=== PATIENT | female | born 1955 | race Caucasian/White ===

== ENCOUNTER 2018-09-03 15:36 | Inpatient (IN) | payer MEDICARE, SELFPAY ==
[2018-09-03] VITALS (8 sets, daily range): BP systolic 101–159; BP diastolic 63–93; PULSE 71–95; RESP 17–21; TEMP 36.6–36.7; O2SAT 22–97; BMI 42.6; BMI 41.9
--- NOTE | 2018-09-03 15:48 | ED.VIS.GEN ---
History of Present Illness Chief Complaint: Abscess Informant: Patient Onset: Weeks - multiple weeks or 1-2 mos Context: Gradual Onset Timing: Continuous Quality: sore Location: right breast Current Severity: Moderate Maximum Severity: Moderate Worsened by: palpation Relieved by: nothing Narrative: Patient with recurring cutaneous abscesses in both of her axilla and on both breasts, presenting for another one. It is on her right breast. There is been no discharge from it, although a nearby one drained blood a week ago and is not hurting as bad as this 1 now. She comes to the ER after having this for multiple months saying that she does not want me to drain it but wants me to page Dr. Ott to come and to do it. Also, she has been having worsening COPD symptoms for the last couple months with a cough that has been productive, and in the past 1-2 weeks it has been yellow sputum without blood, she has intermittent chest discomfort, it is left-sided last for seconds most of the time at nighttime. She also gets chest tightness most of the time when she is dyspneic with exertion. She has home oxygen and was 86% on her home oxygen in triage today, just after exerting herself to the door. She is not having any angina at rest. No known history of heart disease, she has had a negative stress test in the past but cannot remember when it was. Prior similar symptoms: Yes - Past Medical History (1) COPD (chronic obstructive pulmonary disease) Status: Chronic (2) Diabetes mellitus type 2 in obese Status: Chronic (3) HTN (hypertension) Status: Chronic (4) Depression Status: Chronic (5) GERD (gastroesophageal reflux disease) Status: Chronic (6) Esophageal stricture Status: Chronic Past Medical History - Allergies and Home Meds Allergies/Adverse Reactions: Allergies Sulfa (Sulfonamide Antibiotics) Allergy (Mild, Verified 09/03/18 15:38) Hives ciprofloxacin Adverse Reaction (Mild, Verified 09/03/18 15:38) Nausea/Vom/Diarrhea Primary Care Physician: Julio Reyes MD [Primary Care Provider] - Review of Systems General: Denies: Chills, Fever Eyes: Denies: Visual changes - bilaterally, Diplopia ENT: Denies: Rhinorrhea, Sore throat Cardiovascular: Reports: Chest pain - intermittent. Denies: Palpitations Respiratory: Reports: Dyspnea - chronic, Cough, Sputum, Dyspnea on exertion - chronic. Denies: Orthopnea Gastrointestinal: Denies: Abdominal pain, Vomiting, Diarrhea, Melena Genitourinary: Reports: Frequency - When my blood sugar is high. Denies: Dysuria, Hematuria Musculoskeletal: Reports: Back pain - chronic. Denies: Myalgias, Neck pain, Swelling Skin: Reports: Abscess - R breast. Denies: Rash Neurological: Denies: Headache, Weakness, Parasthesia, Numbness Psych: Denies: Suicidal thoughts, Suicidal ideations Endocrine: Denies: Polyuria, Polydipsia, Heat intolerance, Cold intolerance Allergy: Denies: Swelling of the mouth, Swelling of the tongue Physical Exam Inital Vital Signs reviewed: Yes General: Well nourished, Well developed, Obese, - - nad Head: Normocephalic, Atraumatic Eyes: Perrl, EOMI ENT: Moist mucous membranes, No rhinorrhea Neck: Supple, Nontender, No lymphadenopathy Cardiovascular: Regular rate, Regular rhythm, No murmurs Respiratory: No distress, CTA bilaterally, Diminished - throughout Abdomen: Soft, Nondistended, Normal bowel sounds, Tender - epigastric > RUQ. Negative for: Guarding, Rebound tenderness Extremities: Nontender, No edema Skin: Normal color, No Trauma, - - Multiple scars from old abscesses on both breasts and axillae w/ one acute tender, indurated abscess right medial breast w/ surrounding cellulitis. Not pointing, capsule/abscess feels like it may not be at surface of skin. Neurological: Alert, Oriented x3, Cranial nerves II-XII grossly intact, Normal Strength, Normal Sensation Diagnostic/Tx/Re-eval Impressions Chest X-Ray 09/03/18 16:15 IMPRESSION: Findings suggestive of COPD. Generalized osteopenia. No acute cardiopulmonary disease process is seen. Electronically Signed: Nicholas Melo MD at 17:39 EST , Service support , 09/03/18 16:15 Chest PA and Lateral [RAD] Stat Laboratory Results 09/03/18 09/03/18 16:30 16:30 WBC 8.7 RBC 5.12 Hgb 14.4 Hct 44.9 MCV 87.7 MCH 28.1 MCHC 32.1 RDW 14.2 RDW Differential 46.1 H Plt Count 116 L MPV 11.5 Immature Gran % (Auto) 0.300 Neut % (Auto) 63.9 Lymph % (Auto) 22.8 [place] % (Auto) 11.3 H Eos % (Auto) 1.6 Baso % (Auto) 0.1 Absolute Neuts (auto) 5.5 Absolute Lymphs (auto) 1.97 Total Counted Not Reportable Sodium 136 Potassium 3.6 Chloride 98 Carbon Dioxide 31.0 Anion Gap 7 BUN 6 L Creatinine 0.60 Estim Creat Clear Calc 68.04 Est GFR (MDRD) Af Amer 128 Est GFR (MDRD) Non-Af 106 BUN/Creatinine Ratio 9.9 L Glucose 176 H Calcium 9.1 Troponin I < 0.015 - Medical Decision Making Patient was given a couple nebulizer treatments which helped, at rest her oxygen levels remained in the low 90s. She was very dyspneic with walking to and from the bathroom, pulse ox went down to 89 but recovered relatively quickly. Her workup shows no pneumonia or evidence of myocardial infarction or active cardiac ischemia. Her breast abscess is concerning. It does not feel extremely superficial, but is at least 4 cm in diameter total by palpation, and should be drained. I discussed with Dr. ott, who has seen the patient in the past and advises that he would evaluate her as an inpatient if admitted to medicine, as there is a chance this may need drained in the operating room. Patient declines an offer for a needle aspiration by myself at this time. She was given a dose of IV vancomycin given her allergy to sulfa medications and likelihood of harboring MRSA. ED Disposition - Plan for ED Patient: Disposition: Acute Care Hospital [facility] Chief Complaint: Abscess Diagnosis: COPD exacerbation, Abscess of right breast, Hidradenitis suppurativa, Intermittent left-sided chest pain Referrals: Julio Reyes MD [Primary Care Provider] -
--- NOTE | 2018-09-03 15:55 | ED.DCSUM_ITS ---
History of Present Illness Chief Complaint: Abscess Informant: Patient Onset: Weeks - multiple weeks or 1-2 mos Context: Gradual Onset Timing: Continuous Quality: sore Location: right breast Current Severity: Moderate Maximum Severity: Moderate Worsened by: palpation Relieved by: nothing Narrative: Patient with recurring cutaneous abscesses in both of her axilla and on both breasts, presenting for another one. It is on her right breast. There is been no discharge from it, although a nearby one drained blood a week ago and is not hurting as bad as this 1 now. She comes to the ER after having this for multiple months saying that she does not want me to drain it but wants me to page Dr. Ott to come and to do it. Also, she has been having worsening COPD symptoms for the last couple months with a cough that has been productive, and in the past 1-2 weeks it has been yellow sputum without blood, she has intermittent chest discomfort, it is left- sided last for seconds most of the time at nighttime. She also gets chest tightness most of the time when she is dyspneic with exertion. She has home oxygen and was 86% on her home oxygen in triage today, just after exerting herself to the door. She is not having any angina at rest. No known history of heart disease, she has had a negative stress test in the past but cannot remember when it was. Prior similar symptoms: Yes - Past Medical History (1) COPD (chronic obstructive pulmonary disease) Status: Chronic (2) Diabetes mellitus type 2 in obese Status: Chronic (3) HTN (hypertension) Status: Chronic (4) Depression Status: Chronic (5) GERD (gastroesophageal reflux disease) Status: Chronic (6) Esophageal stricture Status: Chronic Past Medical History - Allergies and Home Meds Allergies/Adverse Reactions: Allergies Sulfa (Sulfonamide Antibiotics) Allergy (Mild, Verified 09/03/18 15:38) Hives ciprofloxacin Adverse Reaction (Mild, Verified 09/03/18 15:38) Nausea/Vom/Diarrhea Primary Care Physician: Julio Reyes MD [Primary Care Provider] - Review of Systems General: Denies: Chills, Fever Eyes: Denies: Visual changes - bilaterally, Diplopia ENT: Denies: Rhinorrhea, Sore throat Cardiovascular: Reports: Chest pain - intermittent. Denies: Palpitations Respiratory: Reports: Dyspnea - chronic, Cough, Sputum, Dyspnea on exertion - chronic. Denies: Orthopnea Gastrointestinal: Denies: Abdominal pain, Vomiting, Diarrhea, Melena Genitourinary: Reports: Frequency - When my blood sugar is high. Denies: Dysuria, Hematuria Musculoskeletal: Reports: Back pain - chronic. Denies: Myalgias, Neck pain, Swelling Skin: Reports: Abscess - R breast. Denies: Rash Neurological: Denies: Headache, Weakness, Parasthesia, Numbness Psych: Denies: Suicidal thoughts, Suicidal ideations Endocrine: Denies: Polyuria, Polydipsia, Heat intolerance, Cold intolerance Allergy: Denies: Swelling of the mouth, Swelling of the tongue Physical Exam Inital Vital Signs reviewed: Yes General: Well nourished, Well developed, Obese, - - nad Head: Normocephalic, Atraumatic Eyes: Perrl, EOMI ENT: Moist mucous membranes, No rhinorrhea Neck: Supple, Nontender, No lymphadenopathy Cardiovascular: Regular rate, Regular rhythm, No murmurs Respiratory: No distress, CTA bilaterally, Diminished - throughout Abdomen: Soft, Nondistended, Normal bowel sounds, Tender - epigastric > RUQ. Negative for: Guarding, Rebound tenderness Extremities: Nontender, No edema Skin: Normal color, No Trauma, - - Multiple scars from old abscesses on both breasts and axillae w/ one acute tender, indurated abscess right medial breast w/ surrounding cellulitis. Not pointing, capsule/abscess feels like it may not be at surface of skin. Neurological: Alert, Oriented x3, Cranial nerves II-XII grossly intact, Normal Strength, Normal Sensation Diagnostic/Tx/Re-eval Impressions Chest X-Ray 09/03/18 16:15 IMPRESSION: Findings suggestive of COPD. Generalized osteopenia. No acute cardiopulmonary disease process is seen. Electronically Signed: Nicholas Melo MD at 17:39 EST , Service support , 09/03/18 16:15 Chest PA and Lateral [RAD] Stat Laboratory Results 09/03/18 09/03/18 16:30 16:30 WBC 8.7 RBC 5.12 Hgb 14.4 Hct 44.9 MCV 87.7 MCH 28.1 MCHC 32.1 RDW 14.2 RDW Differential 46.1 H Plt Count 116 L MPV 11.5 Immature Gran % (Auto) 0.300 Neut % (Auto) 63.9 Lymph % (Auto) 22.8 [place] % (Auto) 11.3 H Eos % (Auto) 1.6 Baso % (Auto) 0.1 Absolute Neuts (auto) 5.5 Absolute Lymphs (auto) 1.97 Total Counted Not Reportable Sodium 136 Potassium 3.6 Chloride 98 Carbon Dioxide 31.0 Anion Gap 7 BUN 6 L Creatinine 0.60 Estim Creat Clear Calc 68.04 Est GFR (MDRD) Af Amer 128 Est GFR (MDRD) Non-Af 106 BUN/Creatinine Ratio 9.9 L Glucose 176 H Calcium 9.1 Troponin I < 0.015 - Medical Decision Making Patient was given a couple nebulizer treatments which helped, at rest her oxygen levels remained in the low 90s. She was very dyspneic with walking to and from the bathroom, pulse ox went down to 89 but recovered relatively quickly. Her workup shows no pneumonia or evidence of myocardial infarction or active cardiac ischemia. Her breast abscess is concerning. It does not feel extremely superficial, but is at least 4 cm in diameter total by palpation, and should be drained. I discussed with Dr. ott, who has seen the patient in the past and advises that he would evaluate her as an inpatient if admitted to medicine, as there is a chance this may need drained in the operating room. Patient declines an offer for a needle aspiration by myself at this time. She was given a dose of IV vancomycin given her allergy to sulfa medications and likelihood of harboring MRSA. ED Disposition - Plan for ED Patient: Disposition: Acute Care Hospital [facility] Chief Complaint: Abscess Diagnosis: COPD exacerbation, Abscess of right breast, Hidradenitis suppurativa, Interm ittent left-sided chest pain Referrals: Julio Reyes MD [Primary Care Provider] -
--- NOTE | 2018-09-03 16:15 | EKG12_ITS ---
Test Reason : ABSESS Blood Pressure : / mmHG Vent. Rate : 071 BPM Atrial Rate : 071 BPM P-R Int : 174 ms QRS Dur : 088 ms QT Int : 444 ms P-R-T Axes : 069 -53 053 degrees QTc Int : 482 ms Sinus rhythm with Premature atrial complexes Left anterior fascicular block Nonspecific ST abnormality Abnormal ECG No previous ECGs available Confirmed by DONNELL FIGUEROA, ROSALIND ([id number]), publication editor POOJA FANG ([id number]) on 09/15/2018 2:31:37 PM Referred By: Shara Razo Confirmed By:ROSALIND JACOBO MD
--- NOTE | 2018-09-03 16:15 | RAD_ITS ---
STUDY: X-RAY CHEST REASON FOR EXAM: Female, 62 years old. COPD, shortness of breath TECHNIQUE: PA and lateral views of the chest. COMPARISON: None. FINDINGS: athletic monitor leads are present. The lungs are clear and expanded. There is hemidiaphragmatic flattening with increased retrosternal airspace. Normal size heart. Normal mediastinum and alan. Normal visualized pulmonary arteries. Normal visualized aortic arch and descending thoracic aorta. There is demineralization of the osseous structures. Normal visualized ribs, clavicles, and shoulders. There is no demonstrated abnormality of the visualized soft tissue structures of the upper abdomen. RAD/Chest PA and Lateral IMPRESSION: Findings suggestive of COPD. Generalized osteopenia. No acute cardiopulmonary disease process is seen. Electronically Signed: Nicholas Melo MD at 17:39 EST , Service support ,
--- NOTE | 2018-09-03 16:36 | NURSING ---
NO OLD EKGS
[2018-09-03] MEDS: MethylPREDNISolone 125 MG/2 ML Vial IV (16:37)
[2018-09-03] MEDS: Ipratropium/Albuterol Sulfate 3 ML AMPUL.NEB INHALATION ×2 (16:37→20:18)
[2018-09-03] MEDS: Albuterol 2.5 MG/3 ML VIAL.NEB. INHALATION (16:44)
[2018-09-03 17:14] LABS: Absolute Lymphocyte Count 1.97 X10^3/ul (0.83-4.51); Absolute Neutrophil Count 5.5 X10^3/uL (2.0-7.7); Basophil# 0.01 X10^3/uL; Basophil% 0.1 % (0-1); Eosinophil# 0.14 X10^3/uL; Eosinophils% 1.6 % (0-5); Hematocrit 44.9 % (37-47); Hemoglobin 14.4 g/dl (12.0-15.0); Lymphocyte # 1.97 X10^3/ul (4.0); Lymphocyte % 22.8 % (19-41); Mean Corp Hgb Conc 32.1 g/gl (32-36); Mean Corpuscular Hgb 28.1 pg (27.0-32.0); Mean Corpuscular Volume 87.7 fL (81-99); Mean Platelet Vol. 11.5 fl (6.2-12.0); Monocyte# 0.98 X10^3/uL; Monocyte% 11.3 % (0-10); Neutrophil # 5.52 X10^3/uL (2.7-7.7); Neutrophil % 63.9 % (47-70); Platelet Count 116 K/mm3 (150-450); RBC Distribution Width CV 14.2 % (11.6-14.6); RBC Distribution Width SD 46.1 fl (35.1-43.9); Red Blood Count 5.12 M/mm3 (4.2-5.4); White Blood Count 8.7 K/mm3 (4.4-11.0)
[2018-09-03 17:15] LABS: POSITIVE COUNT NO; POSITIVE DIFFERENTIAL NO; POSITIVE MORPHOLOGY NO
[2018-09-03 17:16] LABS: Anion Gap 7 (5-15); BUN 6 mg/dL (7-18); BUN/Creat Ratio 9.9 RATIO (10-20); Calcium,Total 9.1 mg/dL (8.5-10.1); Chloride 98 mmol/L (98-107); EST Glomerular Filtration Rate 106 mL/min (>60); Est Glom Filt Rate - Afr Amer 128 mL/min (>60); Estimated Creatinine Clearance 68.04 ml/min; Glucose 176 mg/dL (74-106); Potassium 3.6 mmol/L (3.5-5.1); Sodium Level 136 mmol/L (136-145)
[2018-09-03] MEDS: Vancomycin IV 1,000 MG/200 ML BAG 250 MG IV (17:42)
--- NOTE | 2018-09-03 19:02 | HP.PCM_ITS ---
Problem List (1) Abscess of right breast Status: Acute (2) COPD exacerbation Status: Acute (3) Chest pain Status: Acute (4) Diabetes mellitus type 2 in obese Status: Chronic (5) HTN (hypertension) Status: Chronic (6) Depression Status: Chronic (7) GERD (gastroesophageal reflux disease) Status: Chronic (8) Esophageal stricture Status: Chronic (9) Hidradenitis suppurativa Status: Acute History of Present Illness Date of Admission: 09/03/18 Chief Complaint: right breast abscess The patient is a 62 year old F with a PmHx of hydradenitis suppurativa with long hx of abscesses and drainage, COPD, heavy smoking hx quit 3 years ago but smoked since childhood 2 packs per day, IDDM2, depression, esophageal stricture, GERD, GERONIMO compliant with CPAP qhs, chronic hypoxic respiratory failure on 3lpm O2 chronically, who presents to the ER c/o right breast abscess that has been progressively worsening for several weeks. Typically she sees her PCP for these, and last had one drained by him last month. This right breast abscess has been present and getting larger, redder, and more painful for months. She had another near it that recently burst and drained red blood no purulence. She was referred to Dr. Ott but could not get in for several months so she came to the ER. On walking into the ER she was found hypoxic on her 3lpm O2 at 86%. She states her breathing is always poor, but does admit it is worse lately. She sleeps with her head elevated as she cannot lay flat. She also has had chest heaviness at night when laying in bed with radiation to the back. She has no LE edema. No wheezing. She has a chronic productive cough. [] Past Medical History Past Medical History (Chronic Problems): Chronic Problems (Last Reviewed 08/26/18 @ 07:15 by Mohini Nielson) COPD (chronic obstructive pulmonary disease) (Chronic) Diabetes mellitus type 2 in obese (Chronic) HTN (hypertension) (Chronic) Depression (Chronic) GERD (gastroesophageal reflux disease) (Chronic) Esophageal stricture (Chronic) Medical History: Medical History (Last Reviewed 08/26/18 @ 07:15 by Mohini Nielson) Chronic obstructive pulmonary disease with acute exacerbation J44.1 Furuncle of axilla L02.429 Furuncle of groin L02.224 Hypoxemia R09.02 Rib fracture S22.39XA Benign essential HTN I10 Mixed hyperlipidemia E78.2 Nonalcoholic fatty liver disease K76.0 Right sided sciatica M54.31 Type 2 diabetes mellitus E11.9 Allergies Sulfa (Sulfonamide Antibiotics) Allergy (Mild, Verified 09/03/18 15:38) Hives ciprofloxacin Adverse Reaction (Mild, Verified 09/03/18 15:38) Nausea/Vom/Diarrhea Home Medications: Ambulatory Orders Medication Instructions Recorded fluoxetine 20 mg capsule 60 mg PO DAILY cap 08/22/18 fluticasone 100 mcg-vilanterol 25 1 inh INHALATION DAILY 08/22/18 mcg/dose powder for inhalation furosemide 20 mg tablet 20 mg PO DAILY PRN 08/22/18 glimepiride 2 mg tablet 2 mg PO QAM 08/22/18 insulin U- 100 regular human 100 See Protocol SC TIDCM 08/22/18 unit/mL injection solution ipratropium bromide 0.02 % 2.5 ml INHALATION Q6H 08/22/18 solution for inhalation lisinopril 20 1 tab PO DAILY 08/22/18 mg-hydrochlorothiazide 25 mg tablet montelukast 10 mg tablet 10 mg PO QPM 08/22/18 omeprazole 40 mg capsule,delayed 40 mg PO DAILY 08/22/18 release pravastatin 40 mg tablet 40 mg PO DAILY 08/22/18 trazodone 150 mg tablet 150 mg PO DAILY 08/22/18 Albuterol Aerosols [Ventolin 2.5 mg INHALATION Q4H PRN PRN 09/03/18 Aerosols] Albuterol Inhaler [Ventolin Hfa 1 - 2 puff INHALATION Q4H PRN PRN 09/03/18 (SP)] Hydroxyzine HCl 25 mg PO PRN PRN 09/03/18 Insulin NPH Human Isophane 40 unit SQ DINNER 09/03/18 [Novolin N] Insulin NPH Human Isophane 60 unit SQ BREAKFAST 09/03/18 [Novolin N] Metoprolol Succinate [Toprol Xl] 50 mg PO DAILY 09/03/18 Surgical History: appendectomy, hysterectomy, - - , tubal ligation Psychiatric History: Depression [employer] History: No pertinent [employer] history Lives: Spouse/ Significant Other Smoking Status: Never smoker Alcohol: None Drugs: None - *Family History Maternal History Items: No pertinent history Paternal History Items: - - alcoholism Review of Systems Constitutional: Denies: Chills, Fever, Weight Change HEENT: Denies: Head Aches, Sinus Congestion, Sinus Drainage Cardiovascular: Reports: Chest Pain. Denies: Palpitations Respiratory: Denies: Cough, Shortness of breath at rest, Sputum production Gastrointestinal: Denies: Abdominal Pain, Nausea, Vomiting Genitourinary: Denies: Dysuria Musculoskeletal: Denies: Joint Pain, Joint Tenderness Skin: Denies: Rash, Wounds Neurological: Denies: Numbness, Tingling, Focal weakness Psychiatric: Denies: Anxiety, Depression, Homicidal Ideations, Suicidal Ideations Hematologic/ Lymphatic: Denies: Easy Bruising, Easy Bleeding VTE Information - Inpt Only VTE Present on Admission: No VTE Mechan Device Prophylaxis: None VTE Pharm Prophylaxis ordered?: Yes Patient Problems: Active and Suspected Problems (Last Reviewed 08/26/18 @ 07:15 by Mohini Nielson) COPD exacerbation (Acute) Abscess of right breast (Acute) Hidradenitis suppurativa (Acute) Intermittent left-sided chest pain (Acute) Chest pain (Acute) - Physical Exam General: Alert, Oriented x3, Cooperative HEENT: Atraumatic, PERRLA, EOMI, Normocephalic Neck: Supple, No JVD, Negative Carotid Bruits Lungs: Diminished Cardiovascular: Regular rate, No murmurs Abdomen: Bowel Sounds Present, Soft, Non Tender Extremities: No edema, Capillary Refill Less than 3 Seconds Skin: No rashes, No breakdown Musculoskeletal: No Tenderness to Palpation of Joints or Extremities Neurological: Cranial nerves II-XII grossly intact Psych/Mental Status: Normal Affect, Appropriate, Alert and oriented to time, place, person, mood and affect Vital Signs Temp Pulse Resp BP Pulse Ox 98.1 F 77 21 H 101/63 93 09/03/18 15:38 09/03/18 18:54 09/03/18 18:54 09/03/18 18:54 09/03/18 18:54 Oxygen Delivery Method Room Air Weight: 218 lb 4.122 oz Body Mass Index (BMI) 42.6 Laboratory Tests Past 24 Hrs 09/03/18 09/03/18 16:30 16:30 WBC 8.7 RBC 5.12 Hgb 14.4 Hct 44.9 MCV 87.7 MCH 28.1 MCHC 32.1 RDW 14.2 RDW Differential 46.1 H Plt Count 116 L MPV 11.5 Immature Gran % (Auto) 0.300 Neut % (Auto) 63.9 Lymph % (Auto) 22.8 [place] % (Auto) 11.3 H Eos % (Auto) 1.6 Baso % (Auto) 0.1 Absolute Neuts (auto) 5.5 Absolute Lymphs (auto) 1.97 Total Counted Not Reportable Sodium 136 Potassium 3.6 Chloride 98 Carbon Dioxide 31.0 Anion Gap 7 BUN 6 L Creatinine 0.60 Estim Creat Clear Calc 68.04 Est GFR (MDRD) Af Amer 128 Est GFR (MDRD) Non-Af 106 BUN/Creatinine Ratio 9.9 L Glucose 176 H Calcium 9.1 Troponin I < 0.015 Assessment/Plan All Active Problems (Last Reviewed 08/26/18 @ 07:15 by Mohini Nielson) COPD exacerbation (Acute) Abscess of right breast (Acute) Hidradenitis suppurativa (Acute) Intermittent left-sided chest pain (Acute) Chest pain (Acute) 1. Right breast abcess - suspect staphylococcal - hx hydradenitis suppuritiva, diabetes (IDDM), morbid obesity - Consult to Dr. Ott. Continue vanc. Will defer culture until it can opened up. No fever or leukocytosis. NPO after midnight in case she needs to go to the OR. 2. Acute on chronic hypoxic respiratory failure 2/2 acute mild COPD exacerbation - continue solumedrol, aerosols, optimize for OR. Baseline is 3lpm. 86% after ambulating into the OR. Diminished lungs. negative CXR for acute process - COPD shown. Incentive spirometer. 3. Chest pain - trop neg, ekg with nonspecific t wave abnormalities, PAC's. Cycle enzymes, repeat EKG, get echo, maintain on tele. Pain is heaviness that occurs at night, pt cant lay flat - suspect heart failure/pulmonary htn. Multiple risk factors for CAD. 4. GERONIMO - continue CPAP qhs. 5. DMt2 with morbid obesity - dietary consult. Continue insulin + SSI. A1C to assess effectiveness of home therapy. 6. Former smoker - smoked since age 13 2ppd, quit three years ago 7. HTN - stable 8. Anx/Depression - home meds. 9. Hx GERD and esophageal strictures - continue PPI. DVT ppx: lovenox DC planning: PTOT This patient was seen by Goran Rosa PA-C under the supervision of Doctor Danni.
[2018-09-03] MEDS: Vancomycin IV 500 MG/100 ML BAG 250 MG IV (19:03)
--- NOTE | 2018-09-03 19:28 | ECHOD_ITS ---
Reason For Study: SOB Procedure This was a 2D Doppler, Color Flow transthoracic echocardiogram. Exam performed portable in patient room. Left Ventricle Normal LV size. Left ventricular systolic function is normal. The estimated ejection fraction is 60 %. Stage 1 diastolic dysfunction. No regional wall motion abnormalities noted. Right Ventricle Normal RV size. Normal systolic function. Atria Normal left atrium. Normal right atrium. Mitral Valve Normal mitral valve. Tricuspid Valve Normal tricuspid valve. Aortic Valve The aortic valve is not well visualized. Pulmonic Valve The pulmonic valve is not well visualized. Great Vessels Normal aortic root. The pulmonary artery is normal size. Normal inferior vena cava. Pericardium/Pleural No pericardial effusion. MMode/2D Measurements & Calculations LVIDd: 4.5 cm IVSd: 0.96 cm Ao root diam: 2.5 cm LVIDs: 2.2 cm LVPWd: 1.3 cm RVDd: 3.0 cm FS: 51.9 % LAV(MOD-bp): 64.0 ml LA A4 area: 20.8 cm2 LA dimension(2D): 3.2 cm LAV(MOD-bp) Indexed: 33.3 ml/m2 LAV(MOD-sp2): 60.6 ml LAV(MOD-sp4): 61.0 ml RA A4 area: 19.6 cm2 Doppler Measurements & Calculations MV E max ab: 103.6 cm/sec Lat Peak E' Ab: 5.8 cm/sec Med Peak E' Ab: 5.3 cm/sec MV A max ab: 133.4 cm/sec E/E' lat: 18.0 E/E' med: 19.5 MV E/A: 0.78 LV V1 max: 163.1 cm/sec PA V2 max: 119.4 cm/sec LV V1 max P.6 mmHg Interpretation Summary Normal LV size. Left ventricular systolic function is normal. The estimated ejection fraction is 60 %. Stage 1 diastolic dysfunction. Ordering Physician: Shara Razo Referring Physician: Shara Razo Performed By: Georgina Schroeder RDCS
[2018-09-03 20:01] LABS: Magnesium 1.9 mg/dL (1.6-2.6)
--- NOTE | 2018-09-03 20:13 | PCM.RX.CS ---
Consult Pharmacy has been consulted to manage selected antiobiotic: Vancomycin Type of Consult: New start Suspected Infection: Skin/Soft tissue Prior Doses of Antibiotics Received/Current Regimen: Medications Discontinued Medications Vancomycin HCl (Vancomycin) 1,000 mg in 200 mls @ 250 mls/hr IV X1 ONE Stop: 09/03/18 17:47 Last Admin: 09/03/18 17:42 Dose: 250 mls/hr Vancomycin HCl () 500 mg in 100 mls @ 250 mls/hr IV X1 ONE Stop: 09/03/18 18:23 Last Admin: 09/03/18 19:03 Dose: 250 mls/hr Labs: Sodium 136 mmol/L (136-145) 09/03/18 16:30 Potassium 3.6 mmol/L (3.5-5.1) 09/03/18 16:30 Chloride 98 mmol/L (98-107) 09/03/18 16:30 Carbon Dioxide 31.0 mmol/L (21.0-32.0) 09/03/18 16:30 Anion Gap 7 (5-15) 09/03/18 16:30 BUN 6 mg/dL (7-18) L 09/03/18 16:30 Creatinine 0.60 mg/dL (0.55-1.02) 09/03/18 16:30 Est GFR (MDRD) Af Amer 128 mL/min (>60) 09/03/18 16:30 Est GFR (MDRD) Non-Af 106 mL/min (>60) 09/03/18 16:30 BUN/Creatinine Ratio 9.9 RATIO (10-20) L 09/03/18 16:30 Glucose 176 mg/dL (74-106) H 09/03/18 16:30 Weight used for dosin kg Estimated Creatinine Clearance: 70 ml/min Goal Trough: 10-15 mcg/mL Pharmacy Plan for Drug Dosing: Vancomycin 1000mg IV q12h per nomogram with trough prior to 4th dose. Pharmacy Service will continue to monitor and adjust dosing as required. Follow-Up Labs: Trough Vancomycin - 09/05 @ 0530
[2018-09-03 20:39] LABS: Hemoglobin A1c 8.4 % (4.2-6.3)
[2018-09-03] MEDS: Enoxaparin 40 MG/0.4 ML Syringe SC (21:49)
[2018-09-03] MEDS: traZODone 50 MG Tablet 150 MG PO (21:53)
[2018-09-03] MEDS: guaiFENesin 600 MG Tablet PO (21:53)
[2018-09-03] MEDS: Montelukast 10 MG Tablet PO (21:53)
[2018-09-03] MEDS: Pravastatin 40 MG Tablet PO (21:53)
[2018-09-03] MEDS: Glucerna Shake 120 ML LIQUID PO (22:00)
[2018-09-03 22:26] LABS: Bedside Glucose 345 mg/dL (70-110)
[2018-09-03 22:27] LABS: M R Staph aureus DNA By PCR Negative (Negative); Probe Check PASS; Specimen Processing Control PASS
[2018-09-03 23:40] LABS: Bedside Glucose 386 mg/dL (70-110)
[2018-09-03] MEDS: Piperacil/Tazobactam 3.375 GM/50 ML ML IV (23:41)
[2018-09-03] MEDS: 0.9% Normal Saline 1,000 ML 100 ML IV (23:42)
[2018-09-03] MEDS: Insulin Lispro 100 UNIT/ML INSULN.PEN SC (23:55)
[2018-09-04] VITALS (16 sets, daily range): BP systolic 100–137; BP diastolic 57–74; PULSE 60–78; RESP 18–22; TEMP 36.4–36.9; O2SAT 94–97
[2018-09-04 02:36] LABS: Bedside Glucose 392 mg/dL (70-110)
[2018-09-04] MEDS: Insulin Lispro 100 UNIT/ML INSULN.PEN 14 UNIT SC (03:26)
[2018-09-04 04:40] LABS: Bedside Glucose 329 mg/dL (70-110)
[2018-09-04] MEDS: Vancomycin IV 1,000 MG/200 ML BAG 200 MG IV ×2 (05:49→18:00)
[2018-09-04] MEDS: Ipratropium/Albuterol Sulfate 3 ML AMPUL.NEB INHALATION ×5 (05:58→18:58)
[2018-09-04 06:15] LABS: Absolute Lymphocyte Count 0.95 X10^3/ul (0.83-4.51); Absolute Neutrophil Count 5.9 X10^3/uL (2.0-7.7); Basophil# 0.01 X10^3/uL; Basophil% 0.1 % (0-1); Hematocrit 43.2 % (37-47); Hemoglobin 13.8 g/dl (12.0-15.0); Lymphocyte # 0.95 X10^3/ul (4.0); Lymphocyte % 13.4 % (19-41); Mean Corp Hgb Conc 31.9 g/gl (32-36); Mean Corpuscular Hgb 27.9 pg (27.0-32.0); Mean Corpuscular Volume 87.4 fL (81-99); Monocyte# 0.17 X10^3/uL; Monocyte% 2.4 % (0-10); Neutrophil # 5.93 X10^3/uL (2.7-7.7); Neutrophil % 83.8 % (47-70); Platelet Count 116 K/mm3 (150-450); RBC Distribution Width CV 14.2 % (11.6-14.6); RBC Distribution Width SD 45.3 fl (35.1-43.9); Red Blood Count 4.94 M/mm3 (4.2-5.4); White Blood Count 7.1 K/mm3 (4.4-11.0)
[2018-09-04 06:30] LABS: Anion Gap 8 (5-15); BUN 9 mg/dL (7-18); Chloride 99 mmol/L (98-107); Cholesterol 165 mg/dL (200); Creatinine, Serum 0.75 mg/dL (0.55-1.02); EST Glomerular Filtration Rate 83 mL/min (>60); Est Glom Filt Rate - Afr Amer 100 mL/min (>60); Estimated Creatinine Clearance 54.43 ml/min; Glucose 303 mg/dL (74-106); High Density Lipoprotein 43 mg/dL; Sodium Level 135 mmol/L (136-145); Triglycerides 112 mg/dL; Very Low Density Lipoprotein 22 mg/dL (5-40)
[2018-09-04 06:33] LABS: POSITIVE COUNT NO; POSITIVE DIFFERENTIAL NO; POSITIVE MORPHOLOGY NO
[2018-09-04] MEDS: Insulin Lispro 100 UNIT/ML INSULN.PEN SC ×4 (06:53→22:37)
[2018-09-04] MEDS: 0.9% NaCl Peripheral Flush Adult/Peds IV (06:53)
[2018-09-04 07:06] LABS: Bedside Glucose 325 mg/dL (70-110)
[2018-09-04] MEDS: Piperacil/Tazobactam 3.375 GM/50 ML ML IV ×3 (07:14→22:25)
[2018-09-04] MEDS: FLUoxetine 20 MG Capsule 60 MG PO (08:36)
[2018-09-04] MEDS: guaiFENesin 600 MG Tablet PO ×2 (08:36→22:26)
[2018-09-04] MEDS: hydroCHLOROthiazide 25 MG Tablet PO (08:36)
[2018-09-04] MEDS: Enoxaparin 40 MG/0.4 ML Syringe SC (08:36)
[2018-09-04] MEDS: Pantoprazole Sodium 40 MG Tablet PO (08:36)
[2018-09-04] MEDS: Lisinopril 20 MG Tablet PO (08:37)
[2018-09-04] MEDS: Metoprolol(XL)Succ 50 MG Tablet PO (08:37)
[2018-09-04] MEDS: Insulin NPH Human 100 UNITS/ML PEN 60 UNITS SC (08:38)
[2018-09-04 08:51] LABS: Bedside Glucose 324 mg/dL (70-110)
[2018-09-04] MEDS: 0.9% Normal Saline 1,000 ML 100 ML IV ×2 (10:03→22:29)
--- NOTE | 2018-09-04 11:00 | CASEMGMT ---
RN CM ASSESSMENT PCP: Dr. Julio Reyes [facility]acy: [facility] Prescription Coverage: yes Living arrangements:lives with in 2 story home, first floor set up Adaptive Equipment: Home oxygen through [employer] with concentrator, portable tank, CPAP, nebulizer, has electric wc, wlaker and cane Support System: Agency involvement: none. Pt is agreeable to home health [facility] on dc. Requested [facility]. Attempted call, message left requesting info if they do skilled care. No answer received. OK to check with [facility]> Call to [facility]- message left. Transportation: [place] PLAN: Home with Home Care
--- NOTE | 2018-09-04 11:00 | CASEMGMT ---
RN CM ASSESSMENT PCP: Pharmacy: Prescription Coverage: Living arrangements: Adaptive Equipment: Support System: Agency involvement: Transportation: [place] PLAN:
[2018-09-04 11:45] LABS: Bedside Glucose 383 mg/dL (70-110)
--- NOTE | 2018-09-04 12:28 | PCM.CONS.GEN ---
Reason for Consult Date of Consultation: 09/04/18 Reason for Consultation: Right breast infection. REFERRING PHYSICIAN: Dr. Razo. COVER CREASER: Dr. Ott. History of Present Illness: The patient is a 62 y/o F with a history of diabetes mellitus and COPD presented with an exacerbation of her COPD and a hidradenitis infection in her right breast. She has been having increasing pain and redness and swelling. There had been some recent drainage. She also applied topical antibiotic therapy and warm compresses. She has had hidradenitis infections in her breast in the past including the left breast as well. At the present time, she has no complaints about the left breast. She states she has also had hidradenitis infections in her bilateral axillary areas but nothing recently. She was admitted for her worsening COPD. She was started on Vancomycin and Zosyn. Her WBC was 8.7. She states she has not had a mammogram in several years. I was asked to evaluate her right breast hidradenitis infection for surgical options for treatment. Past Medical History Past Medical History (Chronic Problems): Chronic Problems (Last Reviewed 08/26/18 @ 07:15 by Mohini Nielson) COPD (chronic obstructive pulmonary disease) (Chronic) Diabetes mellitus type 2 in obese (Chronic) HTN (hypertension) (Chronic) Depression (Chronic) GERD (gastroesophageal reflux disease) (Chronic) Esophageal stricture (Chronic) Medical History: Medical History (Last Reviewed 08/26/18 @ 07:15 by Mohini Nielson) Chronic obstructive pulmonary disease with acute exacerbation J44.1 Furuncle of axilla L02.429 Furuncle of groin L02.224 Hypoxemia R09.02 Rib fracture S22.39XA Benign essential HTN I10 Mixed hyperlipidemia E78.2 Nonalcoholic fatty liver disease K76.0 Right sided sciatica M54.31 Type 2 diabetes mellitus E11.9 Allergies Sulfa (Sulfonamide Antibiotics) Allergy (Mild, Verified 09/03/18 15:38) Hives ciprofloxacin Adverse Reaction (Mild, Verified 09/03/18 15:38) Nausea/Vom/Diarrhea Current Medications Acetaminophen (Tylenol) 650 mg PO Q6H PRN PRN PRN Reason: Mild Pain (scale 0-3)/T>100.7 Hydrocodone Bitart/Acetaminophen ([place] 5mg-325mg) 1 - 2 tablet PO Q6H PRN PRN PRN Reason: Moderate-severe pain Al Hydroxide/Mg Hydroxide (Mylanta Ii) 30 ml PO Q6H PRN PRN PRN Reason: Gastric burning Albuterol Sulfate (Ventolin Aerosols) 2.5 mg INHALATION Q2H PRN PRN PRN Reason: dyspnea, wheezing Albuterol/Ipratropium (Duoneb) 3 ml INHALATION Q4HWA.RT [facility] Last Admin: 09/04/18 10:40 Dose: 3 ml Enoxaparin Sodium (Lovenox) 40 mg SC DAILY@1000 [facility] Last Admin: 09/04/18 08:36 Dose: 40 mg Fluoxetine HCl (Prozac) 60 mg PO DAILY [facility] Last Admin: 09/04/18 08:36 Dose: 60 mg Furosemide (Lasix) 20 mg PO DAILY PRN PRN PRN Reason: Swelling Guaifenesin (Mucinex) 600 mg PO BID [facility] Last Admin: 09/04/18 08:36 Dose: 600 mg Hydralazine HCl (Apresoline Iv) 10 mg IV Q4H PRN PRN PRN Reason: SBP > 160 Hydrochlorothiazide (Hctz) 25 mg PO DAILY [facility] Last Admin: 09/04/18 08:36 Dose: 25 mg Sodium Chloride () 1,000 mls @ 100 mls/hr IV .Q10H [facility] Last Admin: 09/04/18 10:03 Dose: 100 mls/hr Vancomycin IV Pharmacy to Dose (1 ea/ Sodium Chloride) 500 mls @ 250 mls/hr IV X1 PRN; Protocol PRN Reason: Rx to Dose Sodium Chloride () 250 mls @ 15 mls/hr IV .[id number] PRN PRN Reason: SALINE FLUSH Vancomycin HCl (Vancomycin) 1,000 mg in 200 mls @ 200 mls/hr IV Q12H [facility] Last Admin: 09/04/18 05:49 Dose: 200 mls/hr Piperacillin Sod/Tazobactam Sod (Zosyn) 3.375 gm in 50 mls @ 12.5 mls/hr IV Q8 [facility] Last Admin: 09/04/18 07:14 Dose: 12.5 mls/hr Insulin Human Lispro (Humalog Kwikpen (Bkc)) 0 unit SC ACHS [facility]; Protocol Last Admin: 09/04/18 11:39 Dose: 14 units Insulin Human NPH (Humulin N (Bkc)) 40 units SC DINNER [facility] Insulin Human NPH (Humulin N (Bkc)) 60 units SC BREAKFAST [facility] Last Admin: 09/04/18 08:38 Dose: 60 u Lisinopril (Zestril) 20 mg PO DAILY [facility] Last Admin: 09/04/18 08:37 Dose: 20 mg Magnesium Hydroxide (Milk Of Magnesia) 30 ml PO DAILY PRN PRN PRN Reason: Constipation Methylprednisolone (Solu-Medrol) 40 mg IV Q8 [facility] Last Admin: 09/04/18 06:53 Dose: 40 mg Metoprolol Succinate (Toprol Xl (Beta Rob)) 50 mg PO DAILY [facility] Last Admin: 09/04/18 08:37 Dose: 50 mg Montelukast Sodium (Singulair) 10 mg PO QPM [facility] Last Admin: 09/03/18 21:53 Dose: 10 mg Morphine Sulfate () 1 - 2 mg IV Q4H PRN PRN PRN Reason: PAIN Nitroglycerin (Nitrostat) 0.4 mg SUBLINGUAL Q5M PRN PRN Reason: Angina pain Nutritional Formula (Lactose Free) (Glucerna Shake) 120 ml PO 4X/DAY [facility] Last Admin: 09/04/18 08:24 Dose: Not Given Pantoprazole Sodium (Protonix) 40 mg PO DAILY [facility] Last Admin: 09/04/18 08:36 Dose: 40 mg Pravastatin Sodium (Pravachol) 40 mg PO QHS [facility] Last Admin: 09/03/18 21:53 Dose: 40 mg Promethazine HCl (Phenergan) 12.5 mg IV Q6H PRN PRN PRN Reason: NAUSEA/VOMITING Sodium Chloride () 5 - 30 ml IV UD PRN PRN Reason: SALINE FLUSH Last Admin: 09/04/18 06:53 Dose: 10 ml Trazodone HCl (Desyrel) 150 mg PO QHS [facility] Last Admin: 09/03/18 21:53 Dose: 150 mg Home Medications: Ambulatory Orders Medication Instructions Recorded fluoxetine 20 mg capsule 60 mg PO DAILY cap 08/22/18 fluticasone 100 mcg-vilanterol 25 1 inh INHALATION DAILY 08/22/18 mcg/dose powder for inhalation furosemide 20 mg tablet 20 mg PO DAILY PRN 08/22/18 glimepiride 2 mg tablet 2 mg PO QAM 08/22/18 ipratropium bromide 0.02 % 2.5 ml INHALATION Q6H 08/22/18 solution for inhalation lisinopril 20 1 tab PO DAILY 08/22/18 mg-hydrochlorothiazide 25 mg tablet montelukast 10 mg tablet 10 mg PO QPM 08/22/18 omeprazole 40 mg capsule,delayed 40 mg PO DAILY 08/22/18 release pravastatin 40 mg tablet 40 mg PO DAILY 08/22/18 trazodone 150 mg tablet 150 mg PO DAILY 08/22/18 Albuterol Aerosols [Ventolin 2.5 mg INHALATION Q4H PRN PRN 09/03/18 Aerosols] Albuterol Inhaler [Ventolin Hfa] 1 - 2 puff INHALATION Q4H PRN PRN 09/03/18 Hydroxyzine HCl 25 mg PO PRN PRN 09/03/18 Insulin NPH Human Isophane 60 unit SQ BREAKFAST 09/03/18 [Novolin N] Metoprolol Succinate [Toprol Xl] 50 mg PO DAILY 09/03/18 Cephalexin [Keflex] 500 mg PO Q12 #14 capsule 09/05/18 Doxycycline 100 mg PO BID #14 capsule 09/05/18 Insulin NPH Human Isophane 60 unit SQ DINNER #0 09/05/18 [Novolin N] Insulin Regular, Human [Novolin R] See Protocol SC ACHS #0 09/05/18 Prednisone See Taper PO DAILY #30 tablet 09/05/18 Surgical History: appendectomy, hysterectomy, - - , tubal ligation Psychiatric History: Depression 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 Has fatigue. Eyes: No cataracts. No glaucoma. Ears, Nose, Throat: Has congestion, runny nose or sore throat. SKIN: Has redness right breast from hidradenitis infection. CARDIOVASCULAR: Has some chest pain. No palpitations, edema, orthopnea, syncopal events. RESPIRATORY: Has shortness of breath and cough. Patient is a former smoker. GASTROINTESTINAL: No nausea, vomiting or diarrhea. GENITOURINARY: No dysuria, frequency, urgency or retention. NEUROLOGICAL: No headache, dizziness, syncope. MUSCULOSKELETAL: No muscle, back pain, joint pain or stiffness. HEMATOLOGIC: Has some anemia and some bruising. LYMPHATICS: No enlarged nodes. No history of splenectomy. PSYCHIATRIC: Has depression and anxiety. ENDOCRINE: No reports of sweating, cold or heat intolerance. No polyuria or polydipsia. ALLERGIES: No history of asthma, hives, eczema or rhinitis. - Physical Exam General: awake, alert, oriented x 3 and cooperative. HEENT: EOMI, PERRLA. Throat is clear. Neck: Supple and nontender. No cervical adenopathy. Breasts: Has macromastia. Bra size is DDD cup. No breast masses palpable. On the right medial and inferior breast is an area of redness and tenderness that has improved according to the patient. Measures about 8 cm. No fluctuance. No purulent drainage. Some induration. Some redness is seen on the left inferior breast but is nontender. Hidradenitis left breast appears stable at this time. Measures 5 cm. Lungs: Diminished bilaterally at the bases. Increased expiratory phase. No wheezing. Heart: Regular rate and rhythm. Extremities: no cyanosis, clubbing, mild edema in lower extremities. No axillary adenopathy. Radial pulses are palpable. Has bilateral axillary hidradenitis that appears stable. No redness seen. Some chronic induration seen. Nontender. Measures 4 cm bilaterally. Neurological: cranial nerves II-XII grossly normal. Psychiatric: affect appears normal, no acute evidence of depressive or anxiety feelings. Vital Signs Temp Pulse Resp BP Pulse Ox 97.6 F L 68 18 127/64 H 97 09/04/18 07:30 09/04/18 11:10 09/04/18 10:40 09/04/18 07:30 09/04/18 07:30 Oxygen Flow Rate (L/min) 3 Oxygen Delivery Method Nasal Cannula Weight: 214 lb 11.684 oz Body Mass Index (BMI) 41.9 Intake and Output for Last 24 Hours 09/02/18 09/03/18 09/04/18 23:59 23:59 23:59 Intake Total 2747 / 2747 Output Total 900 / 900 Balance 1847 / 1847 Microbiology Past 72 Hours 09/03/18 19:28 Gram Stain - Final Sputum, Expectorated/Coughed 09/03/18 20:06 Respiratory Panel (PCR) - Final Mucosa - Nasopharyngeal Laboratory Tests Past 24 Hrs 09/03/18 09/03/18 09/03/18 16:30 16:30 16:30 WBC 8.7 RBC 5.12 Hgb 14.4 Hct 44.9 MCV 87.7 MCH 28.1 MCHC 32.1 RDW 14.2 RDW Differential 46.1 H Plt Count 116 L MPV 11.5 Immature Gran % (Auto) 0.300 Neut % (Auto) 63.9 Lymph % (Auto) 22.8 Swisher % (Auto) 11.3 H Eos % (Auto) 1.6 Baso % (Auto) 0.1 Absolute Neuts (auto) 5.5 Absolute Lymphs (auto) 1.97 Total Counted Not Reportable Sodium 136 Potassium 3.6 Chloride 98 Carbon Dioxide 31.0 Anion Gap 7 BUN 6 L Creatinine 0.60 Estim Creat Clear Calc 68.04 Est GFR (MDRD) Af Amer 128 Est GFR (MDRD) Non-Af 106 BUN/Creatinine Ratio 9.9 L Glucose 176 H Hemoglobin A1c 8.4 H Calcium 9.1 Magnesium Troponin I < 0.015 Triglycerides Cholesterol LDL Cholesterol VLDL Cholesterol HDL Cholesterol MRSA (PCR) 09/03/18 09/03/18 09/03/18 16:30 20:00 20:43 WBC RBC Hgb Hct MCV MCH MCHC RDW RDW Differential Plt Count MPV Immature Gran % (Auto) Neut % (Auto) Lymph % (Auto) Swisher % (Auto) Eos % (Auto) Baso % (Auto) Absolute Neuts (auto) Absolute Lymphs (auto) Total Counted Sodium Potassium Chloride Carbon Dioxide Anion Gap BUN Creatinine Estim Creat Clear Calc Est GFR (MDRD) Af Amer Est GFR (MDRD) Non-Af BUN/Creatinine Ratio Glucose Hemoglobin A1c Calcium Magnesium 1.9 Troponin I < 0.015 Triglycerides Cholesterol LDL Cholesterol VLDL Cholesterol HDL Cholesterol MRSA (PCR) Negative 09/03/18 09/04/18 09/04/18 22:56 05:35 05:35 WBC 7.1 RBC 4.94 Hgb 13.8 Hct 43.2 MCV 87.4 MCH 27.9 MCHC 31.9 L RDW 14.2 RDW Differential 45.3 H Plt Count 116 L MPV 12.0 Immature Gran % (Auto) 0.300 Neut % (Auto) 83.8 H Lymph % (Auto) 13.4 L Swisher % (Auto) 2.4 Eos % (Auto) 0.0 Baso % (Auto) 0.1 Absolute Neuts (auto) 5.9 Absolute Lymphs (auto) 0.95 Total Counted Not Reportable Sodium 135 L Potassium 4.0 Chloride 99 Carbon Dioxide 28.0 Anion Gap 8 BUN 9 Creatinine 0.75 Estim Creat Clear Calc 54.43 Est GFR (MDRD) Af Amer 100 Est GFR (MDRD) Non-Af 83 BUN/Creatinine Ratio 12.0 Glucose 303 H Hemoglobin A1c Calcium 9.0 Magnesium Troponin I < 0.015 Triglycerides 112 Cholesterol 165 LDL Cholesterol 100 VLDL Cholesterol 22 HDL Cholesterol 43 MRSA (PCR) POC Glucose 09/04/18 09/04/18 09/04/18 11:37 08:33 06:46 POC Glucose 383 H 324 H 325 H 09/04/18 09/04/18 09/03/18 04:35 02:28 23:34 POC Glucose 329 H 392 H 386 H 09/03/18 21:59 POC Glucose 345 H Assessment/Plan All Active Problems (Last Reviewed 08/26/18 @ 07:15 by Mohini Nielson) COPD exacerbation (Acute) Abscess of right breast (Acute) Hidradenitis suppurativa (Acute) Intermittent left-sided chest pain (Acute) Chest pain (Acute) 1. Right breast hidradenitis infection. 2. Left breast hidradenitis, stable. 3. Bilateral axillary hidradenitis, stable. 4. Diabetes mellitus. 5. Former smoker. 6. COPD. Continue IV Vancomycin and Zosyn. Her hidradenitis infection right breast needs operative intervention with incision and drainage and excisional debridement. Will leave the wound open and proceed with postop care with the VAC. Would send tissue to Pathology for analysis to rule out carcinoma and to Microbiology for culture. A positive culture will necessitate antibiotic therapy. She has not had a mammogram for several years. Would like one before her surgery. Since being admitted yesterday, her symptoms have improved with the IV antibiotics. She was admitted for exacerbation of her COPD. This hidradenitis infection right breast is not emergent enough to risk general anesthesia at this time with regard to her pulmonary status. I think we can temporize with po antibiotics at home until she is evaluated and maximized by Motors And Generators Inspector. At that point we can proceed with the surgery. In that scenario, would obtain the mammogram as an outpatient as well. After discharge from the surgery, will [facility]up [facility]. If there is a plateau in the healing process, can proceed with delayed closure with oncoplastic breast reconstruction or skin grafting depending on the deformity present at that time. Breast reconstruction surgery is elective and her HgbA1c would need to be below 8 in order to proceed. At present it is 8.4. Patient was informed of the risks and complications of the procedure including alternatives to surgery. These were discussed with the patient personally. Patient voices understanding and wishes to proceed with the current plan of po antibiotics at home followed by operative intervention once pulmonary status has been maximized as best we can. Anticipate increased metabolic demands from the infection and from the proposed surgery. Will check a Prealbumin and encourage nutritional supplementation with protein to help the healing process. Code Visit Inpatient E&M: 09540 Init Hosp L2 - ICD-10 - N61.1, L73.2, E11.69, Z87.891
[2018-09-04] MEDS: Glucerna Shake 120 ML LIQUID PO ×3 (13:20→22:40)
--- NOTE | 2018-09-04 14:57 | PCM.PROGNOTE ---
<Mohini Gonzalez - Last Filed: 09/04/18 15:07> Patient Problems: Active and Suspected Problems (Last Reviewed 08/26/18 @ 07:15 by Mohini Nielson) COPD exacerbation (Acute) Abscess of right breast (Acute) Hidradenitis suppurativa (Acute) Intermittent left-sided chest pain (Acute) Chest pain (Acute) Subjective: Patient seen and examined. Resting comfortable in chair. Family at bedside. Denies further chest pain. States shortness of breath is somewhat improved. Denies fever, chills. - Physical Exam General: Alert, Oriented x3, Cooperative HEENT: Atraumatic, PERRLA, EOMI, Normocephalic Neck: Supple, No JVD, Negative Carotid Bruits Lungs: Diminished, Wheezes Cardiovascular: Regular rate, Regular Rhythm, Normal S1, Normal S2, No murmurs Abdomen: Bowel Sounds Present, Soft, Non Tender, Non-Distended, Obese Extremities: No clubbing, No cyanosis, No edema Skin: - - Right breast erythema with abscess under breast Musculoskeletal: No Tenderness to Palpation of Joints or Extremities Neurological: Cranial nerves II-XII grossly intact, Neuro grossly intact Psych/Mental Status: Normal Affect, Appropriate Vital Signs Temp Pulse Resp BP Pulse Ox 97.9 F 67 20 H 137/74 H 97 09/04/18 13:43 09/04/18 13:43 09/04/18 13:43 09/04/18 13:43 09/04/18 13:43 Oxygen Flow Rate (L/min) 2 Oxygen Delivery Method Nasal Cannula Weight: 214 lb 11.684 oz Body Mass Index (BMI) 41.9 Intake and Output for Last 24 Hours 09/02/18 09/03/18 09/04/18 23:59 23:59 23:59 Intake Total 2747 / 2747 Output Total 900 / 900 Balance 1847 / 1847 Microbiology Past 72 Hours 09/03/18 19:28 Gram Stain - Final Sputum, Expectorated/Coughed Respiratory Culture - Preliminary Appears to be normal respiratory nicolas. Further studies to follow. 09/03/18 20:06 Respiratory Panel (PCR) - Final Mucosa - Nasopharyngeal Laboratory Tests Past 24 Hrs 09/03/18 09/03/18 09/03/18 16:30 16:30 16:30 WBC 8.7 RBC 5.12 Hgb 14.4 Hct 44.9 MCV 87.7 MCH 28.1 MCHC 32.1 RDW 14.2 RDW Differential 46.1 H Plt Count 116 L MPV 11.5 Immature Gran % (Auto) 0.300 Neut % (Auto) 63.9 Lymph % (Auto) 22.8 [place] % (Auto) 11.3 H Eos % (Auto) 1.6 Baso % (Auto) 0.1 Absolute Neuts (auto) 5.5 Absolute Lymphs (auto) 1.97 Total Counted Not Reportable Sodium 136 Potassium 3.6 Chloride 98 Carbon Dioxide 31.0 Anion Gap 7 BUN 6 L Creatinine 0.60 Estim Creat Clear Calc 68.04 Est GFR (MDRD) Af Amer 128 Est GFR (MDRD) Non-Af 106 BUN/Creatinine Ratio 9.9 L Glucose 176 H Hemoglobin A1c 8.4 H Calcium 9.1 Magnesium Troponin I < 0.015 Triglycerides Cholesterol LDL Cholesterol VLDL Cholesterol HDL Cholesterol MRSA (PCR) 09/03/18 09/03/18 09/03/18 16:30 20:00 20:43 WBC RBC Hgb Hct MCV MCH MCHC RDW RDW Differential Plt Count MPV Immature Gran % (Auto) Neut % (Auto) Lymph % (Auto) [place] % (Auto) Eos % (Auto) Baso % (Auto) Absolute Neuts (auto) Absolute Lymphs (auto) Total Counted Sodium Potassium Chloride Carbon Dioxide Anion Gap BUN Creatinine Estim Creat Clear Calc Est GFR (MDRD) Af Amer Est GFR (MDRD) Non-Af BUN/Creatinine Ratio Glucose Hemoglobin A1c Calcium Magnesium 1.9 Troponin I < 0.015 Triglycerides Cholesterol LDL Cholesterol VLDL Cholesterol HDL Cholesterol MRSA (PCR) Negative 09/03/18 09/04/18 09/04/18 22:56 05:35 05:35 WBC 7.1 RBC 4.94 Hgb 13.8 Hct 43.2 MCV 87.4 MCH 27.9 MCHC 31.9 L RDW 14.2 RDW Differential 45.3 H Plt Count 116 L MPV 12.0 Immature Gran % (Auto) 0.300 Neut % (Auto) 83.8 H Lymph % (Auto) 13.4 L [place] % (Auto) 2.4 Eos % (Auto) 0.0 Baso % (Auto) 0.1 Absolute Neuts (auto) 5.9 Absolute Lymphs (auto) 0.95 Total Counted Not Reportable Sodium 135 L Potassium 4.0 Chloride 99 Carbon Dioxide 28.0 Anion Gap 8 BUN 9 Creatinine 0.75 Estim Creat Clear Calc 54.43 Est GFR (MDRD) Af Amer 100 Est GFR (MDRD) Non-Af 83 BUN/Creatinine Ratio 12.0 Glucose 303 H Hemoglobin A1c Calcium 9.0 Magnesium Troponin I < 0.015 Triglycerides 112 Cholesterol 165 LDL Cholesterol 100 VLDL Cholesterol 22 HDL Cholesterol 43 MRSA (PCR) POC Glucose 09/04/18 09/04/18 09/04/18 11:37 08:33 06:46 POC Glucose 383 H 324 H 325 H 09/04/18 09/04/18 09/03/18 04:35 02:28 23:34 POC Glucose 329 H 392 H 386 H 09/03/18 21:59 POC Glucose 345 H Medical Necessity - Tobacco Use Smoking Status: Former smoker Assessment/Plan All Active Problems (Last Reviewed 08/26/18 @ 07:15 by Mohini Nielson) COPD exacerbation (Acute) Abscess of right breast (Acute) Hidradenitis suppurativa (Acute) Intermittent left-sided chest pain (Acute) Chest pain (Acute) 1. Acute on chronic hypoxic respiratory failure secondary to acute exacerbation of COPD-respiratory panel negative. Continue supplement oxygen to maintain O2 at or above 90%. Albuterol and DuoNeb aerosols. IV Solu-Medrol. Chest x-ray on admission without acute process. 2. Right breast cellulitis with abscess/hydradenitis-Dr. Ott consulted. Continue IV vancomycin and IV Zosyn. Possible I&D. Wound RN consult. 3. Atypical chest pain-EKG and troponin negative. 4. Type 2 diabetes [id number] before meals at bedtime with sliding scale insulin. 5. Anxiety/depression-continue home regimen. 6. Obstructive sleep apnea-CPAP nightly. 7. GERD-continue PPI. 8. Morbid obesity-encourage diet lifestyle modifications. Nutrition consult. 9. Hypertension-continue home metoprolol, furosemide, lisinopril regimen. DVT prophylaxis-Lovenox subcu. This patient was seen by AMY Woods under the supervision of Dr. Scott. <Ana María Scott - Last Filed: 09/04/18 15:41> - Physical Exam Vital Signs Temp Pulse Resp BP Pulse Ox 97.9 F 67 20 H 137/74 H 97 09/04/18 13:43 09/04/18 13:43 09/04/18 13:43 09/04/18 13:43 09/04/18 13:43 Oxygen Flow Rate (L/min) 2 Oxygen Delivery Method Nasal Cannula Weight: 214 lb 11.684 oz Body Mass Index (BMI) 41.9 Intake and Output for Last 24 Hours 09/02/18 09/03/18 09/04/18 23:59 23:59 23:59 Intake Total 2747 / 2747 Output Total 900 / 900 Balance 1847 / 1847 Microbiology Past 72 Hours 09/03/18 19:28 Gram Stain - Final Sputum, Expectorated/Coughed Respiratory Culture - Preliminary Appears to be normal respiratory nicolas. Further studies to follow. 09/03/18 20:06 Respiratory Panel (PCR) - Final Mucosa - Nasopharyngeal Laboratory Tests Past 24 Hrs 09/03/18 09/03/18 09/03/18 16:30 16:30 16:30 WBC 8.7 RBC 5.12 Hgb 14.4 Hct 44.9 MCV 87.7 MCH 28.1 MCHC 32.1 RDW 14.2 RDW Differential 46.1 H Plt Count 116 L MPV 11.5 Immature Gran % (Auto) 0.300 Neut % (Auto) 63.9 Lymph % (Auto) 22.8 [place] % (Auto) 11.3 H Eos % (Auto) 1.6 Baso % (Auto) 0.1 Absolute Neuts (auto) 5.5 Absolute Lymphs (auto) 1.97 Total Counted Not Reportable Sodium 136 Potassium 3.6 Chloride 98 Carbon Dioxide 31.0 Anion Gap 7 BUN 6 L Creatinine 0.60 Estim Creat Clear Calc 68.04 Est GFR (MDRD) Af Amer 128 Est GFR (MDRD) Non-Af 106 BUN/Creatinine Ratio 9.9 L Glucose 176 H Hemoglobin A1c 8.4 H Calcium 9.1 Magnesium Troponin I < 0.015 Triglycerides Cholesterol LDL Cholesterol VLDL Cholesterol HDL Cholesterol MRSA (PCR) 09/03/18 09/03/18 09/03/18 16:30 20:00 20:43 WBC RBC Hgb Hct MCV MCH MCHC RDW RDW Differential Plt Count MPV Immature Gran % (Auto) Neut % (Auto) Lymph % (Auto) [place] % (Auto) Eos % (Auto) Baso % (Auto) Absolute Neuts (auto) Absolute Lymphs (auto) Total Counted Sodium Potassium Chloride Carbon Dioxide Anion Gap BUN Creatinine Estim Creat Clear Calc Est GFR (MDRD) Af Amer Est GFR (MDRD) Non-Af BUN/Creatinine Ratio Glucose Hemoglobin A1c Calcium Magnesium 1.9 Troponin I < 0.015 Triglycerides Cholesterol LDL Cholesterol VLDL Cholesterol HDL Cholesterol MRSA (PCR) Negative 09/03/18 09/04/18 09/04/18 22:56 05:35 05:35 WBC 7.1 RBC 4.94 Hgb 13.8 Hct 43.2 MCV 87.4 MCH 27.9 MCHC 31.9 L RDW 14.2 RDW Differential 45.3 H Plt Count 116 L MPV 12.0 Immature Gran % (Auto) 0.300 Neut % (Auto) 83.8 H Lymph % (Auto) 13.4 L [place] % (Auto) 2.4 Eos % (Auto) 0.0 Baso % (Auto) 0.1 Absolute Neuts (auto) 5.9 Absolute Lymphs (auto) 0.95 Total Counted Not Reportable Sodium 135 L Potassium 4.0 Chloride 99 Carbon Dioxide 28.0 Anion Gap 8 BUN 9 Creatinine 0.75 Estim Creat Clear Calc 54.43 Est GFR (MDRD) Af Amer 100 Est GFR (MDRD) Non-Af 83 BUN/Creatinine Ratio 12.0 Glucose 303 H Hemoglobin A1c Calcium 9.0 Magnesium Troponin I < 0.015 Triglycerides 112 Cholesterol 165 LDL Cholesterol 100 VLDL Cholesterol 22 HDL Cholesterol 43 MRSA (PCR) POC Glucose 09/04/18 09/04/18 09/04/18 11:37 08:33 06:46 POC Glucose 383 H 324 H 325 H 09/04/18 09/04/18 09/03/18 04:35 02:28 23:34 POC Glucose 329 H 392 H 386 H 09/03/18 21:59 POC Glucose 345 H Assessment/Plan Patient seen under my supervision by Mohini Gonzalez NP C She was admitted with a complaint of worsening shortness of breath and breast abscess. She is been managed for hidradenitis infection of the right breast with abscess formation and COPD exacerbation. Thoracic surgery was consulted. Patient seen and examined. She was on 2 L of oxygen which is her baseline. She denied any fever chills, any cough or chest pain, abdominal pain, any diarrhea or vomiting. She did admit to SOB. She has not had a mammogram in several years. Review of systems otherwise negative. Labs and vitals reviewed. o/e: Vital Signs Height 5 ft Weight: 214 lb 11.684 oz Weight in Pounds 214.7 lbs Pulse Ox 97 Temperature 97.9 F Pulse Rate 67 Respiratory Rate 20 Blood Pressure 137/74 Blood Pressure Position Sitting General: Alert, Oriented x3, Cooperative HEENT: Atraumatic, PERRLA, EOMI, Normocephalic Neck: Supple, No JVD, Negative Carotid Bruits Lungs: Diminished, Wheezes Cardiovascular: Regular rate, Regular Rhythm, Normal S1, Normal S2, No murmurs Abdomen: Bowel Sounds Present, Soft, Non Tender, Non-Distended, Obese Extremities: No clubbing, No cyanosis, No edema Skin: has a ~ 5cm x 5cm erythematous abscess under the right breast, with induration of skin. Tender to touch- - Right breast erythema with abscess under breast Musculoskeletal: No Tenderness to Palpation of Joints or Extremities Neurological: Cranial nerves II-XII grossly intact, Neuro grossly intact Psych/Mental Status: Normal Affect, Appropriate Patient is to continue IV antibiotics. TO get mammogram prior to I&D, as she hasnt had one in years. Concern is about her pulmonary function as patient is on 2 L of oxygen and came in with COPD exacerbation. He has improved now and shortness of breath is better and she is back on her baseline 2 L of oxygen. To continue breathing treatments. She remains short of breath tomorrow we will get pulmonology to review her prior to surgery. Continue iV steroids. Agree with rest of Mohini Gonzalez POWDERMAN-C's note, assessment and plan. Code Visit Inpatient E&M: 11932 Subs Hosp L3
[2018-09-04] MEDS: Insulin NPH Human 100 UNITS/ML PEN 40 UNITS SC (16:37)
[2018-09-04 16:45] LABS: Bedside Glucose 360 mg/dL (70-110)
[2018-09-04] MEDS: Montelukast 10 MG Tablet PO (22:26)
[2018-09-04] MEDS: traZODone 50 MG Tablet 150 MG PO (22:26)
[2018-09-04] MEDS: Pravastatin 40 MG Tablet PO (22:40)
[2018-09-04 23:06] LABS: Bedside Glucose 405 mg/dL (70-110)
[2018-09-05] VITALS (8 sets, daily range): BP systolic 115–150; BP diastolic 55–70; PULSE 46–89; RESP 16–20; TEMP 36.6–36.7; O2SAT 93–98
[2018-09-05 05:47] LABS: Hematocrit 41.2 % (37-47); Mean Corp Hgb Conc 31.6 g/gl (32-36); Mean Corpuscular Volume 88.6 fL (81-99); Mean Platelet Vol. 11.9 fl (6.2-12.0); Platelet Count 123 K/mm3 (150-450); RBC Distribution Width CV 14.3 % (11.6-14.6); RBC Distribution Width SD 45.7 fl (35.1-43.9); Red Blood Count 4.65 M/mm3 (4.2-5.4)
[2018-09-05 05:53] LABS: Scan Indicated on CBC? Y/N NO
[2018-09-05 05:57] LABS: Vancomycin, Trough Level 6.5 ug/mL (5.0-15.0)
[2018-09-05 05:59] LABS: Anion Gap 7 (5-15); BUN 15 mg/dL (7-18); BUN/Creat Ratio 21.4 RATIO (10-20); Calcium,Total 9.1 mg/dL (8.5-10.1); Chloride 100 mmol/L (98-107); EST Glomerular Filtration Rate 89 mL/min (>60); Est Glom Filt Rate - Afr Amer 108 mL/min (>60); Estimated Creatinine Clearance 58.32 ml/min; Glucose 265 mg/dL (74-106); Potassium 4.2 mmol/L (3.5-5.1); Prealbumin 13.8 mg/dL (20.0-40.0); Sodium Level 137 mmol/L (136-145)
[2018-09-05] MEDS: Vancomycin IV 1,000 MG/200 ML BAG 200 MG IV ×2 (06:14→13:19)
[2018-09-05] MEDS: 0.9% NaCl IVPB Med Flush (250 mL) 15 ML IV (06:15)
[2018-09-05] MEDS: Insulin Lispro 100 UNIT/ML INSULN.PEN SC ×2 (06:22→11:24)
[2018-09-05 07:00] LABS: Bedside Glucose 251 mg/dL (70-110)
[2018-09-05] MEDS: Ipratropium/Albuterol Sulfate 3 ML AMPUL.NEB INHALATION ×3 (07:04→14:47)
[2018-09-05] MEDS: Piperacil/Tazobactam 3.375 GM/50 ML ML IV (07:31)
[2018-09-05] MEDS: FLUoxetine 20 MG Capsule 60 MG PO (08:19)
[2018-09-05] MEDS: Insulin NPH Human 100 UNITS/ML PEN 60 UNITS SC (08:19)
[2018-09-05] MEDS: Pantoprazole Sodium 40 MG Tablet PO (08:20)
[2018-09-05] MEDS: guaiFENesin 600 MG Tablet PO (08:20)
[2018-09-05] MEDS: hydroCHLOROthiazide 25 MG Tablet PO (08:21)
[2018-09-05] MEDS: Lisinopril 20 MG Tablet PO (08:21)
[2018-09-05] MEDS: Enoxaparin 40 MG/0.4 ML Syringe SC (08:27)
[2018-09-05] MEDS: Glucerna Shake 120 ML LIQUID PO (08:28)
[2018-09-05] MEDS: 0.9% Normal Saline 1,000 ML 100 ML IV (08:28)
--- NOTE | 2018-09-05 08:31 | NURSING ---
Was asked to see patient for redness to right breast. pt states she has a history of hidradenitis. patient has had areas lanced in bilateral groin, bilateral axilla, buttocks, and bilateral breasts. pt currently has a reddened area to the right breast. there is no drainage noted. pt denies pain. Dr Ott has been consulted as well and is not planning on a surgery at this time. would like patient to get a mammogram prior to discussion of surgery. will monitor as needed. currently no wound to care for .
[2018-09-05] MEDS: Metoprolol(XL)Succ 50 MG Tablet PO (08:35)
--- NOTE | 2018-09-05 09:44 | PCM.RX.CS ---
Consult Pharmacy has been consulted to manage selected antiobiotic: Vancomycin Type of Consult: Follow-up Suspected Infection: Skin/Soft tissue Prior Doses of Antibiotics Received/Current Regimen: VANCOMYCIN 1G Q12HR: 09/04 @0549, 1800 AND 09/05 @0614 Labs: Sodium 137 mmol/L (136-145) 09/05/18 05:24 Potassium 4.2 mmol/L (3.5-5.1) 09/05/18 05:24 Chloride 100 mmol/L (98-107) 09/05/18 05:24 Carbon Dioxide 30.0 mmol/L (21.0-32.0) 09/05/18 05:24 Anion Gap 7 (5-15) 09/05/18 05:24 BUN 15 mg/dL (7-18) 09/05/18 05:24 Creatinine 0.70 mg/dL (0.55-1.02) 09/05/18 05:24 Est GFR (MDRD) Af Amer 108 mL/min (>60) 09/05/18 05:24 Est GFR (MDRD) Non-Af 89 mL/min (>60) 09/05/18 05:24 BUN/Creatinine Ratio 21.4 RATIO (10-20) H 09/05/18 05:24 Glucose 265 mg/dL (74-106) H 09/05/18 05:24 Vancomycin Trough 6.5 ug/mL (5.0-15.0) 09/05/18 05:24 Microbiology: Microbiology 09/03/18 19:28 Sputum, Expectorated/Coughed Gram Stain - Final 09/03/18 19:28 Sputum, Expectorated/Coughed Respiratory Culture - Preliminary Appears to be normal respiratory nicolas. Further studies to follow. 09/03/18 20:06 Mucosa - Nasopharyngeal Respiratory Panel (PCR) - Final Goal Trough: 10-15 mcg/mL Pharmacy Plan for Drug Dosing: A trough was drawn 09/05 @0524, which resulted in a value of 6.5 (11.5hrs from last administered dose). The patient's goal is 10-15 per consult. Will increase the dose to 1g IV Q8hr to start @1400. Estimated trough with this dose change ~12.1 PLAN/RECOMMENDATIONS 1. Vancomycin 1000mg IV Q8hr to start 09/05 @1400 2. Trough scheduled 09/06/18 @1330 3. Pharmacy Service will continue to monitor and adjust dosing as required.
--- NOTE | 2018-09-05 11:02 | PCM.DC ---
- Discharge Diagnoses Current Active Problems: Current Active and Chronic Problems (Last Reviewed 08/26/18 @ 07:15 by Mohini Nielson) COPD (chronic obstructive pulmonary disease) (Chronic) Diabetes mellitus type 2 in obese (Chronic) HTN (hypertension) (Chronic) Depression (Chronic) GERD (gastroesophageal reflux disease) (Chronic) Esophageal stricture (Chronic) COPD exacerbation (Acute) Abscess of right breast (Acute) Hidradenitis suppurativa (Acute) Intermittent left-sided chest pain (Acute) Chest pain (Acute) You will use the following diet at home:: Calorie/Carbohydrate Controlled (specify 1200, 1400, etc) Discharge Activity: Return to Normal Activity Call your doctor if you observe: Shortness of breath, Dizziness, Fainting spells, Chest pain Additional Instructions: Your home insulin regimen was increased for better glucose control. Recommend close follow up with PCP to continue to monitor blood glucose levels. Allergies/Adverse Reactions: Allergies Sulfa (Sulfonamide Antibiotics) Allergy (Mild, Verified 09/03/18 15:38) Hives ciprofloxacin Adverse Reaction (Mild, Verified 09/03/18 15:38) Nausea/Vom/Diarrhea Medications to take at Discharge fluoxetine 20 mg capsule 60 mg PO DAILY cap 08/22/18 fluticasone 100 mcg-vilanterol 25 mcg/dose powder for inhalation 1 inh INHALATION DAILY 08/22/18 furosemide 20 mg tablet 20 mg PO DAILY PRN 08/22/18 glimepiride 2 mg tablet 2 mg PO QAM 08/22/18 ipratropium bromide 0.02 % solution for inhalation 2.5 ml INHALATION Q6H 08/22/18 lisinopril 20 mg-hydrochlorothiazide 25 mg tablet 1 tab PO DAILY 08/22/18 montelukast 10 mg tablet 10 mg PO QPM 08/22/18 omeprazole 40 mg capsule,delayed release 40 mg PO DAILY 08/22/18 pravastatin 40 mg tablet 40 mg PO DAILY 08/22/18 trazodone 150 mg tablet 150 mg PO DAILY 08/22/18 Albuterol Aerosols [Ventolin Aerosols] 2.5 mg INHALATION Q4H PRN PRN 09/03/18 Albuterol Inhaler [Ventolin Hfa] 1 - 2 puff INHALATION Q4H PRN PRN 09/03/18 Hydroxyzine HCl 25 mg PO PRN PRN 09/03/18 Insulin NPH Human Isophane [Novolin N] 60 unit SQ BREAKFAST 09/03/18 Metoprolol Succinate [Toprol Xl] 50 mg PO DAILY 09/03/18 Cephalexin [Keflex] 500 mg PO Q12 #14 capsule 09/05/18 Doxycycline 100 mg PO BID #14 capsule 09/05/18 Insulin NPH Human Isophane [Novolin N] 60 unit SQ DINNER #0 09/05/18 Insulin Regular, Human [Novolin R] See Protocol SC ACHS #0 09/05/18 Prednisone See Taper PO DAILY #30 tablet 09/05/18 The following prescriptions were given: Cephalexin [Keflex] 500 mg PO Q12 #14 capsule Prednisone See Taper PO DAILY #30 tablet Doxycycline 100 mg PO BID #14 capsule Primary Care Physician: Julio Reyes MD [Primary Care Provider] - Please follow up with your Primary Care Physician in: 1 Week Test Results: Test results from this visit will be discussed in further detail at your follow-up appointment, if applicable. Please Follow Up With: Derian Corona MD - Pt would like to establish, please call for 1st available appt. When: 1-2 weeks. May see [employer] TWISTER. Please Follow Up With: Avinash Ott MD When: 1 Week Please Follow Up With: Schedule mammogram with PCP or [employer]USTRI[employer] BOILERMAKER Proposed Discharge Date: 09/05/18
--- NOTE | 2018-09-05 11:05 | DCINST_ITS ---
- Discharge Diagnoses Current Active Problems: Current Active and Chronic Problems (Last Reviewed 08/26/18 @ 07:15 by Mohini Nielson) COPD (chronic obstructive pulmonary disease) (Chronic) Diabetes mellitus type 2 in obese (Chronic) HTN (hypertension) (Chronic) Depression (Chronic) GERD (gastroesophageal reflux disease) (Chronic) Esophageal stricture (Chronic) COPD exacerbation (Acute) Abscess of right breast (Acute) Hidradenitis suppurativa (Acute) Intermittent left-sided chest pain (Acute) Chest pain (Acute) You will use the following diet at home:: Calorie/Carbohydrate Controlled (specify 1200, 1400, etc) Discharge Activity: Return to Normal Activity Call your doctor if you observe: Shortness of breath, Dizziness, Fainting spells, Chest pain Additional Instructions: Your home insulin regimen was increased for better glucose control. Recommend close follow up with PCP to continue to monitor blood glucose levels. Allergies/Adverse Reactions: Allergies Sulfa (Sulfonamide Antibiotics) Allergy (Mild, Verified 09/03/18 15:38) Hives ciprofloxacin Adverse Reaction (Mild, Verified 09/03/18 15:38) Nausea/Vom/Diarrhea Medications to take at Discharge fluoxetine 20 mg capsule 60 mg PO DAILY cap 08/22/18 fluticasone 100 mcg-vilanterol 25 mcg/dose powder for inhalation 1 inh INHALATION DAILY 08/22/18 furosemide 20 mg tablet 20 mg PO DAILY PRN 08/22/18 glimepiride 2 mg tablet 2 mg PO QAM 08/22/18 ipratropium bromide 0.02 % solution for inhalation 2.5 ml INHALATION Q6H 08/22/18 lisinopril 20 mg-hydrochlorothiazide 25 mg tablet 1 tab PO DAILY 08/22/18 montelukast 10 mg tablet 10 mg PO QPM 08/22/18 omeprazole 40 mg capsule,delayed release 40 mg PO DAILY 08/22/18 pravastatin 40 mg tablet 40 mg PO DAILY 08/22/18 trazodone 150 mg tablet 150 mg PO DAILY 08/22/18 Albuterol Aerosols [Ventolin Aerosols] 2.5 mg INHALATION Q4H PRN PRN 09/03/18 Albuterol Inhaler [Ventolin Hfa] 1 - 2 puff INHALATION Q4H PRN PRN 09/03/18 Hydroxyzine HCl 25 mg PO PRN PRN 09/03/18 Insulin NPH Human Isophane [Novolin N] 60 unit SQ BREAKFAST 09/03/18 Metoprolol Succinate [Toprol Xl] 50 mg PO DAILY 09/03/18 Cephalexin [Keflex] 500 mg PO Q12 #14 capsule 09/05/18 Doxycycline 100 mg PO BID #14 capsule 09/05/18 Insulin NPH Human Isophane [Novolin N] 60 unit SQ DINNER #0 09/05/18 Insulin Regular, Human [Novolin R] See Protocol SC ACHS #0 09/05/18 Prednisone See Taper PO DAILY #30 tablet 09/05/18 The following prescriptions were given: Cephalexin [Keflex] 500 mg PO Q12 #14 capsule Prednisone See Taper PO DAILY #30 tablet Doxycycline 100 mg PO BID #14 capsule Primary Care Physician: Julio Reyes MD [Primary Care Provider] - Please follow up with your Primary Care Physician in: 1 Week Test Results: Test results from this visit will be discussed in further detail at your follow- up appointment, if applicable. Please Follow Up With: Derian Corona MD - Pt would like to establish, please call for 1st available appt. When: 1-2 weeks. May see FARM PLANNER. Please Follow Up With: Avinash Ott MD When: 1 Week Please Follow Up With: Schedule mammogram with PCP or LIABILITY CLAIMS REPRESENTATIVE Proposed Discharge Date: 09/05/18
--- NOTE | 2018-09-05 11:07 | PCM.DC.SUM ---
<Mohini Gonzalez - Last Filed: 09/05/18 11:18> Discharge Date and Diagnosis Date of Admission: 09/03/18 Date of Discharge: 09/05/18 - Primary Discharge Diagnosis Active and Suspected Problems (Last Reviewed 08/26/18 @ 07:15 by Mohini Nielson) 1. Acute on chronic hypoxic respiratory failure secondary to acute exacerbation of COPD 2. Right breast cellulitis with abscess/hydradenitis 3. Atypical chest pain, ACS ruled out 4. Type 2 diabetes mellitus, poorly controlled 5. Obstructive sleep apnea 6. Anxiety/depression 7. GERD 8. Morbid obesity 9. Hypertension - Secondary Discharge Diagnosis Chronic Problems (Last Reviewed 08/26/18 @ 07:15 by Mohini Nielson) COPD (chronic obstructive pulmonary disease) (Chronic) Diabetes mellitus type 2 in obese (Chronic) HTN (hypertension) (Chronic) Depression (Chronic) GERD (gastroesophageal reflux disease) (Chronic) Esophageal stricture (Chronic) Hospital Course and Treatment Imaging Results: Diagnostic Data Chest X-Ray 09/03/18 16:15 IMPRESSION: Findings suggestive of COPD. Generalized osteopenia. No acute cardiopulmonary disease process is seen. Electronically Signed: Nicholas Melo MD at 17:39 EST , Service support , Consultations 09/03/18 19:28 Consult: Onc/Wound/casing sewer Routine Comment: Operations: None Procedures: 2-D Echocardiogram Summary of Care Provided: The patient is a 62 year old F admitted 09/03/2018 due to right breast abscess. 1. Acute on chronic hypoxic respiratory failure secondary to acute exacerbation of COPD-respiratory panel negative. Continue supplement oxygen to maintain O2 at or above 90%. Patient has albuterol and DuoNeb aerosols at home. Chest x-ray on admission without acute process. Sputum culture showed normal respiratory nicolas. Treated with IV Solu-Medrol during admission. Will be discharged on prednisone taper. Patient would like to establish with pulmonary medicine, Dr. Corona. Follow-up with Dr. Corona in 1-2 weeks. She followed with pulmonary medicine at outside facility in the past, no recent follow-up. 2. Right breast cellulitis with abscess/hydradenitis-Dr. Ott consulted. Patient received IV vancomycin and IV Zosyn. Patient will be discharged on oral doxy and Keflex for 7 days. Follow-up with Dr. Ott in 1 week as outpatient. Plan for I&D as outpatient when COPD exacerbation has resolved. Patient would like to have mammogram prior to this procedure since she has not had one in several years. Patient instructed to call primary care physician or BOX OFFICE AGENT to schedule this. Following I&D, patient will require further follow-up with wound center. 3. Atypical chest pain-EKG and troponin negative. 4. Type 2 diabetes mellitus-hemoglobin A1c 8.4%. Home Novolin increased to 60 units twice daily. Home regular insulin sliding scale increased to high dosing. Patient will continue glimepiride. Recommend repeat hemoglobin A1c by primary care physician. Dr. Ott would like hemoglobin A1c under 8% prior to any breast reconstruction or skin grafting if necessary. 5. Anxiety/depression-continue home regimen. 6. Obstructive sleep apnea-CPAP nightly. 7. GERD-continue PPI. 8. Morbid obesity-encourage diet lifestyle modifications. 9. Hypertension-continue home metoprolol, furosemide, lisinopril regimen. General: Alert, Oriented x3, Cooperative HEENT: Atraumatic, PERRLA, EOMI, Normocephalic Neck: Supple, No JVD, Negative Carotid Bruits Lungs: Diminished, clear to auscultation Cardiovascular: Regular rate, Regular Rhythm, Normal S1, Normal S2, No murmurs Abdomen: Bowel Sounds Present, Soft, Non Tender, Non-Distended, Obese Extremities: No clubbing, No cyanosis, No edema Skin: Right breast erythema with abscess under breast Musculoskeletal: No Tenderness to Palpation of Joints or Extremities Neurological: Cranial nerves II-XII grossly intact, Neuro grossly intact Psych/Mental Status: Normal Affect, Appropriate Patient seen exam prior to discharge. Physical assessment as noted above. Patient is stable for discharge home with the follow-up her conditions as noted above. This patient was seen by AMY Woods under the supervision of Dr. Scott. - Physical Exam Vital Signs Temp Pulse Resp BP Pulse Ox 97.8 F 66 18 129/60 H 97 09/05/18 08:11 09/05/18 08:35 09/05/18 08:11 09/05/18 08:11 09/05/18 08:11 Oxygen Flow Rate (L/min) 3 Oxygen Delivery Method Nasal Cannula Weight: 214 lb 11.684 oz Body Mass Index (BMI) 41.9 Intake and Output for Last 24 Hours 09/03/18 09/04/18 09/05/18 23:59 23:59 23:59 Intake Total 3391 / 3391 1753 / 1753 Output Total 900 / 900 Balance 2491 / 2491 1753 / 1753 Microbiology Past 72 Hours 09/03/18 19:28 Gram Stain - Final Sputum, Expectorated/Coughed Respiratory Culture - Preliminary Appears to be normal respiratory nicolas. Further studies to follow. 09/03/18 20:06 Respiratory Panel (PCR) - Final Mucosa - Nasopharyngeal Laboratory Tests Past 24 Hrs 09/05/18 09/05/18 09/05/18 05:24 05:24 05:24 WBC 10.0 RBC 4.65 Hgb 13.0 Hct 41.2 MCV 88.6 MCH 28.0 MCHC 31.6 L RDW 14.3 RDW Differential 45.7 H Plt Count 123 L MPV 11.9 Sodium 137 Potassium 4.2 Chloride 100 Carbon Dioxide 30.0 Anion Gap 7 BUN 15 Creatinine 0.70 Estim Creat Clear Calc 58.32 Est GFR (MDRD) Af Amer 108 Est GFR (MDRD) Non-Af 89 BUN/Creatinine Ratio 21.4 H Glucose 265 H Calcium 9.1 Prealbumin 13.8 L Vancomycin Trough 6.5 POC Glucose 09/05/18 09/04/18 09/04/18 06:22 22:36 16:33 POC Glucose 251 H 405 H 360 H 09/04/18 11:37 POC Glucose 383 H Discharge Diet: Carb Control Diet Discharge Activity: Return to Normal Activity Call your doctor if you observe: Shortness of breath, Dizziness, Fainting spells, Chest pain Home Medications: Medications to take at Discharge fluoxetine 20 mg capsule 60 mg PO DAILY cap 08/22/18 fluticasone 100 mcg-vilanterol 25 mcg/dose powder for inhalation 1 inh INHALATION DAILY 08/22/18 furosemide 20 mg tablet 20 mg PO DAILY PRN 08/22/18 glimepiride 2 mg tablet 2 mg PO QAM 08/22/18 ipratropium bromide 0.02 % solution for inhalation 2.5 ml INHALATION Q6H 08/22/18 lisinopril 20 mg-hydrochlorothiazide 25 mg tablet 1 tab PO DAILY 08/22/18 montelukast 10 mg tablet 10 mg PO QPM 08/22/18 omeprazole 40 mg capsule,delayed release 40 mg PO DAILY 08/22/18 pravastatin 40 mg tablet 40 mg PO DAILY 08/22/18 trazodone 150 mg tablet 150 mg PO DAILY 08/22/18 Albuterol Aerosols [Ventolin Aerosols] 2.5 mg INHALATION Q4H PRN PRN 09/03/18 Albuterol Inhaler [Ventolin Hfa] 1 - 2 puff INHALATION Q4H PRN PRN 09/03/18 Hydroxyzine HCl 25 mg PO PRN PRN 09/03/18 Insulin NPH Human Isophane [Novolin N] 60 unit SQ BREAKFAST 09/03/18 Metoprolol Succinate [Toprol Xl] 50 mg PO DAILY 09/03/18 Cephalexin [Keflex] 500 mg PO Q12 #14 capsule 09/05/18 Doxycycline 100 mg PO BID #14 capsule 09/05/18 Insulin NPH Human Isophane [Novolin N] 60 unit SQ DINNER #0 09/05/18 Insulin Regular, Human [Novolin R] See Protocol SC ACHS #0 09/05/18 Prednisone See Taper PO DAILY #30 tablet 09/05/18 Following Prescrptions Were Given to Patient: Cephalexin [Keflex] 500 mg PO Q12 #14 capsule Prednisone See Taper PO DAILY #30 tablet Doxycycline 100 mg PO BID #14 capsule Primary Care Physician: Julio Reyes MD [Primary Care Provider] - Please follow up with your Primary Care Physician in: 1 Week Please Follow Up With: Derian Corona MD - Pt would like to establish, please call for 1st available appt. When: 1-2 weeks. May see BRAKE LINING FINISHER [employer]BESTOS. Please Follow Up With: Avinash Ott MD When: 1 Week Please Follow Up With: Schedule mammogram with PCP or BOX OFFICE AGENT Disposition: Home Minutes spent on discharge:: 35 Patient Condition:: Stable Medical Necessity - Tobacco Use Smoking Status: Former smoker Meaningful Use Info Meaningful Use Diagnoses (Choose all that apply): None applicable <Ana María Scott - Last Filed: 09/05/18 15:48> Discharge Date and Diagnosis - Secondary Discharge Diagnosis Chronic Problems (Last Reviewed 08/26/18 @ 07:15 by Mohini Nielson) COPD (chronic obstructive pulmonary disease) (Chronic) Diabetes mellitus type 2 in obese (Chronic) HTN (hypertension) (Chronic) Depression (Chronic) GERD (gastroesophageal reflux disease) (Chronic) Esophageal stricture (Chronic) Hospital Course and Treatment Consultations 09/03/18 19:28 Consult: Onc/Wound/casing sewer Routine Comment: Summary of Care Provided: Patient seen by Mohini REYES under my supervision. Patient admitted with a complaint of shortness of breath and a right breast abscess. She was managed for right breast abscess and cellulitis and COPD exacerbation. She was given breathing treatments and IV steroids as well as her baseline oxygen for chronic respiratory failure. Dr. Ott of plastic surgery consulted and he recommended to do an I&D on outpatient basis after she had been given antibiotic infection down. Patient is to get breast mammogram prior to getting the surgery done. Patient has remained stable and is being discharged home today. Patient seen and examined. She has no complaints and is back to her baseline shortness of breath. She denies any fever or chills, cough or chest pain, shortness of breath, abdominal pain, diarrhea vomiting. Breast abscess is much better. She is on her baseline 2 L of oxygen. Labs and vitals reviewed. Home medications reviewed and reconciled. o/e: Vital Signs Height 5 ft Weight: 214 lb 11.684 oz Weight in Pounds 214.7 lbs Pulse Ox 97 Temperature 98.0 F Pulse Rate 67 Respiratory Rate 20 Blood Pressure 150/70 Blood Pressure Position Semi-Fowlers General: Alert, Oriented x3, Cooperative HEENT: Atraumatic, PERRLA, EOMI, Normocephalic Neck: Supple, No JVD, Negative Carotid Bruits Lungs:clear to auscultation Cardiovascular: Regular rate, Regular Rhythm, Normal S1, Normal S2, No murmurs Abdomen: Bowel Sounds Present, Soft, Non Tender, Non-Distended, Obese Extremities: No clubbing, No cyanosis, No edema Skin: has a ~ 5cm x 5cm erythematous abscess under the right breast, with induration of skin. Tender to touch- - Musculoskeletal: No Tenderness to Palpation of Joints or Extremities Neurological: Cranial nerves II-XII grossly intact, Neuro grossly intact Psych/Mental Status: Normal Affect, Appropriate Plan as stated above. SHe is being discharged home on a 7 day course of PO doxycycline and PO Keflex. His follow-up with her primary care doctor, mine equipment design engineer and plastic surgeon. Her home dose of insulin was adjusted as per above. Agree with rest of note, assessment and plan by Mohini Gonzalez BRAKE LINING FINISHER ASBESTOS-C. - Physical Exam Vital Signs Temp Pulse Resp BP Pulse Ox 98.0 F 67 20 H 150/70 H 97 09/05/18 15:10 09/05/18 15:10 09/05/18 15:10 09/05/18 15:10 09/05/18 08:11 Oxygen Flow Rate (L/min) 3 Oxygen Delivery Method Nasal Cannula Weight: 214 lb 11.684 oz Body Mass Index (BMI) 41.9 Intake and Output for Last 24 Hours 09/03/18 09/04/18 09/05/18 23:59 23:59 23:59 Intake Total 3391 / 3391 2687 / 2687 Output Total 900 / 900 1000 / 1000 Balance 2491 / 2491 1687 / 1687 Microbiology Past 72 Hours 09/03/18 19:28 Gram Stain - Final Sputum, Expectorated/Coughed Respiratory Culture - Preliminary Appears to be normal respiratory nicolas. Further studies to follow. 09/03/18 20:06 Respiratory Panel (PCR) - Final Mucosa - Nasopharyngeal Laboratory Tests Past 24 Hrs 09/05/18 09/05/18 09/05/18 05:24 05:24 05:24 WBC 10.0 RBC 4.65 Hgb 13.0 Hct 41.2 MCV 88.6 MCH 28.0 MCHC 31.6 L RDW 14.3 RDW Differential 45.7 H Plt Count 123 L MPV 11.9 Sodium 137 Potassium 4.2 Chloride 100 Carbon Dioxide 30.0 Anion Gap 7 BUN 15 Creatinine 0.70 Estim Creat Clear Calc 58.32 Est GFR (MDRD) Af Amer 108 Est GFR (MDRD) Non-Af 89 BUN/Creatinine Ratio 21.4 H Glucose 265 H Calcium 9.1 Prealbumin 13.8 L Vancomycin Trough 6.5 POC Glucose 09/05/18 09/05/18 09/04/18 11:24 06:22 22:36 POC Glucose 387 H 251 H 405 H 09/04/18 16:33 POC Glucose 360 H Code Visit Inpatient E&M: 90811 Disch Hosp
--- NOTE | 2018-09-05 11:17 | DS.PCM_ITS ---
<Mohini Gonzalez - Last Filed: 09/05/18 11:18> Discharge Date and Diagnosis Date of Admission: 09/03/18 Date of Discharge: 09/05/18 - Primary Discharge Diagnosis Active and Suspected Problems (Last Reviewed 08/26/18 @ 07:15 by Mohini Nielson) 1. Acute on chronic hypoxic respiratory failure secondary to acute exacerbation of COPD 2. Right breast cellulitis with abscess/hydradenitis 3. Atypical chest pain, ACS ruled out 4. Type 2 diabetes mellitus, poorly controlled 5. Obstructive sleep apnea 6. Anxiety/depression 7. GERD 8. Morbid obesity 9. Hypertension - Secondary Discharge Diagnosis Chronic Problems (Last Reviewed 08/26/18 @ 07:15 by Mohini Nielson) COPD (chronic obstructive pulmonary disease) (Chronic) Diabetes mellitus type 2 in obese (Chronic) HTN (hypertension) (Chronic) Depression (Chronic) GERD (gastroesophageal reflux disease) (Chronic) Esophageal stricture (Chronic) Hospital Course and Treatment Imaging Results: Diagnostic Data Chest X-Ray 09/03/18 16:15 IMPRESSION: Findings suggestive of COPD. Generalized osteopenia. No acute cardiopulmonary disease process is seen. Electronically Signed: Nicholas Melo MD at 17:39 EST , Service support , Consultations 09/03/18 19:28 Consult: Onc/Wound/lead case manager Routine Comment: Operations: None Procedures: 2-D Echocardiogram Summary of Care Provided: The patient is a 62 year old F admitted 09/03/2018 due to right breast abscess. 1. Acute on chronic hypoxic respiratory failure secondary to acute exacerbation of COPD-respiratory panel negative. Continue supplement oxygen to maintain O2 at or above 90%. Patient has albuterol and DuoNeb aerosols at home. Chest x- ray on admission without acute process. Sputum culture showed normal respiratory nicolas. Treated with IV Solu-Medrol during admission. Will be discharged on prednisone taper. Patient would like to establish with pulmonary medicine, Dr. Corona. Follow-up with Dr. Corona in 1-2 weeks. She followed with pulmonary medicine at outside facility in the past, no recent follow-up. 2. Right breast cellulitis with abscess/hydradenitis-Dr. Ott consulted. Patient received IV vancomycin and IV Zosyn. Patient will be discharged on oral doxy and Keflex for 7 days. Follow-up with Dr. Ott in 1 week as outpatient. Plan for I&D as outpatient when COPD exacerbation has resolved. Patient would like to have mammogram prior to this procedure since she has not had one in several years. Patient instructed to call primary care physician or FERRY CAPTAIN to schedule this. Following I&D, patient will require further follow-up with wound center. 3. Atypical chest pain-EKG and troponin negative. 4. Type 2 diabetes mellitus-hemoglobin A1c 8.4%. Home Novolin increased to 60 units twice daily. Home regular insulin sliding scale increased to high dosing. Patient will continue glimepiride. Recommend repeat hemoglobin A1c by primary care physician. Dr. Ott would like hemoglobin A1c under 8% prior to any nnamdi st reconstruction or skin grafting if necessary. 5. Anxiety/depression-continue home regimen. 6. Obstructive sleep apnea-CPAP nightly. 7. GERD-continue PPI. 8. Morbid obesity-encourage diet lifestyle modifications. 9. Hypertension-continue home metoprolol, furosemide, lisinopril regimen. General: Alert, Oriented x3, Cooperative HEENT: Atraumatic, PERRLA, EOMI, Normocephalic Neck: Supple, No JVD, Negative Carotid Bruits Lungs: Diminished, clear to auscultation Cardiovascular: Regular rate, Regular Rhythm, Normal S1, Normal S2, No murmurs Abdomen: Bowel Sounds Present, Soft, Non Tender, Non-Distended, Obese Extremities: No clubbing, No cyanosis, No edema Skin: Right breast erythema with abscess under breast Musculoskeletal: No Tenderness to Palpation of Joints or Extremities Neurological: Cranial nerves II-XII grossly intact, Neuro grossly intact Psych/Mental Status: Normal Affect, Appropriate Patient seen exam prior to discharge. Physical assessment as noted above. Patient is stable for discharge home with the follow-up her conditions as noted above. This patient was seen by AMY Woods under the supervision of Dr. Scott. - Physical Exam Vital Signs Temp Pulse Resp BP Pulse Ox 97.8 F 66 18 129/60 H 97 09/05/18 08:11 09/05/18 08:35 09/05/18 08:11 09/05/18 08:11 09/05/18 08:11 Oxygen Flow Rate (L/min) 3 Oxygen Delivery Method Nasal Cannula Weight: 214 lb 11.684 oz Body Mass Index (BMI) 41.9 Intake and Output for Last 24 Hours 09/03/18 09/04/18 09/05/18 23:59 23:59 23:59 Intake Total 3391 / 3391 1753 / 1753 Output Total 900 / 900 Balance 2491 / 2491 1753 / 1753 Microbiology Past 72 Hours 09/03/18 19:28 Gram Stain - Final Sputum, Expectorated/Coughed Respiratory Culture - Preliminary Appears to be normal respiratory nicolas. Further studies to follow. 09/03/18 20:06 Respiratory Panel (PCR) - Final Mucosa - Nasopharyngeal Laboratory Tests Past 24 Hrs 09/05/18 09/05/18 09/05/18 05:24 05:24 05:24 WBC 10.0 RBC 4.65 Hgb 13.0 Hct 41.2 MCV 88.6 MCH 28.0 MCHC 31.6 L RDW 14.3 RDW Differential 45.7 H Plt Count 123 L MPV 11.9 Sodium 137 Potassium 4.2 Chloride 100 Carbon Dioxide 30.0 Anion Gap 7 BUN 15 Creatinine 0.70 Estim Creat Clear Calc 58.32 Est GFR (MDRD) Af Amer 108 Est GFR (MDRD) Non-Af 89 BUN/Creatinine Ratio 21.4 H Glucose 265 H Calcium 9.1 Prealbumin 13.8 L Vancomycin Trough 6.5 POC Glucose 09/05/18 09/04/18 09/04/18 06:22 22:36 16:33 POC Glucose 251 H 405 H 360 H 09/04/18 11:37 POC Glucose 383 H Discharge Diet: Carb Control Diet Discharge Activity: Return to Normal Activity Call your doctor if you observe: Shortness of breath, Dizziness, Fainting spells, Chest pain Home Medications: Medications to take at Discharge fluoxetine 20 mg capsule 60 mg PO DAILY cap 08/22/18 fluticasone 100 mcg-vilanterol 25 mcg/dose powder for inhalation 1 inh INHALATION DAILY 08/22/18 furosemide 20 mg tablet 20 mg PO DAILY PRN 08/22/18 glimepiride 2 mg tablet 2 mg PO QAM 08/22/18 ipratropium bromide 0.02 % solution for inhalation 2.5 ml INHALATION Q6H 08/22/18 lisinopril 20 mg-hydrochlorothiazide 25 mg tablet 1 tab PO DAILY 08/22/18 montelukast 10 mg tablet 10 mg PO QPM 08/22/18 omeprazole 40 mg capsule,delayed release 40 mg PO DAILY 08/22/18 pravastatin 40 mg tablet 40 mg PO DAILY 08/22/18 trazodone 150 mg tablet 150 mg PO DAILY 08/22/18 Albuterol Aerosols [Ventolin Aerosols] 2.5 mg INHALATION Q4H PRN PRN 09/03/18 Albuterol Inhaler [Ventolin Hfa] 1 - 2 puff INHALATION Q4H PRN PRN 09/03/18 Hydroxyzine HCl 25 mg PO PRN PRN 09/03/18 Insulin NPH Human Isophane [Novolin N] 60 unit SQ BREAKFAST 09/03/18 Metoprolol Succinate [Toprol Xl] 50 mg PO DAILY 09/03/18 Cephalexin [Keflex] 500 mg PO Q12 #14 capsule 09/05/18 Doxycycline 100 mg PO BID #14 capsule 09/05/18 Insulin NPH Human Isophane [Novolin N] 60 unit SQ DINNER #0 09/05/18 Insulin Regular, Human [Novolin R] See Protocol SC ACHS #0 09/05/18 Prednisone See Taper PO DAILY #30 tablet 09/05/18 Following Prescrptions Were Given to Patient: Cephalexin [Keflex] 500 mg PO Q12 #14 capsule Prednisone See Taper PO DAILY #30 tablet Doxycycline 100 mg PO BID #14 capsule Primary Care Physician: Julio Reyes MD [Primary Care Provider] - Please follow up with your Primary Care Physician in: 1 Week Please Follow Up With: Derian Corona MD - Pt would like to establish, please call for 1st available appt. When: 1-2 weeks. May see CUSTOMER EXPERIENCE STRATEGIST. Please Follow Up With: Avinash Ott MD When: 1 Week Please Follow Up With: Schedule mammogram with PCP or FERRY CAPTAIN Disposition: Home Minutes spent on discharge:: 35 Patient Condition:: Stable Medical Necessity - Tobacco Use Smoking Status: Former smoker Meaningful Use Info Meaningful Use Diagnoses (Choose all that apply): None applicable <Ana María Scott - Last Filed: 09/05/18 15:48> Discharge Date and Diagnosis - Secondary Discharge Diagnosis Chronic Problems (Last Reviewed 08/26/18 @ 07:15 by Mohini Nielson) COPD (chronic obstructive pulmonary disease) (Chronic) Diabetes mellitus type 2 in obese (Chronic) HTN (hypertension) (Chronic) Depression (Chronic) GERD (gastroesophageal reflux disease) (Chronic) Esophageal stricture (Chronic) Hospital Course and Treatment Consultations 09/03/18 19:28 Consult: Onc/Wound/lead case manager Routine Comment: Summary of Care Provided: Patient seen by Mohini REYES under my supervision. Patient admitted with a complaint of shortness of breath and a right breast abscess. She was managed for right breast abscess and cellulitis and COPD exacerbation. She was given breathing treatments and IV steroids as well as her baseline oxygen for chronic respiratory failure. Dr. Ott of plastic surgery consulted and he recommended to do an I&D on outpatient basis after she had been given antibiotic infection down. Patient is to get breast mammogram prior to getting the surgery done. Patient has remained stable and is being discharged home today. Patient seen and examined. She has no complaints and is back to her baseline shortness of breath. She denies any fever or chills, cough or chest pain, shortness of breath, abdominal pain, diarrhea vomiting. Breast abscess is much better. She is on her baseline 2 L of oxygen. Labs and vitals reviewed. Home medications reviewed and reconciled. o/e: Vital Signs Height 5 ft Weight: 214 lb 11.684 oz Weight in Pounds 214.7 lbs Pulse Ox 97 Temperature 98.0 F Pulse Rate 67 Respiratory Rate 20 Blood Pressure 150/70 Blood Pressure Position Semi-Fowlers General: Alert, Oriented x3, Cooperative HEENT: Atraumatic, PERRLA, EOMI, Normocephalic Neck: Supple, No JVD, Negative Carotid Bruits Lungs:clear to auscultation Cardiovascular: Regular rate, Regular Rhythm, Normal S1, Normal S2, No murmurs Abdomen: Bowel Sounds Present, Soft, Non Tender, Non-Distended, Obese Extremities: No clubbing, No cyanosis, No edema Skin: has a ~ 5cm x 5cm erythematous abscess under the right breast, with induration of skin. Tender to touch- - Musculoskeletal: No Tenderness to Palpation of Joints or Extremities Neurological: Cranial nerves II-XII grossly intact, Neuro grossly intact Psych/Mental Status: Normal Affect, Appropriate Plan as stated above. SHe is being discharged home on a 7 day course of PO doxycycline and PO Keflex. His follow-up with her primary care doctor, software developer intern and plastic surgeon. Her home dose of insulin was adjusted as per above. Agree with rest of note, assessment and plan by Mohini Gonzalez CUSTOMER EXPERIENCE STRATEGIST-C. - Physical Exam Vital Signs Temp Pulse Resp BP Pulse Ox 98.0 F 67 20 H 150/70 H 97 09/05/18 15:10 09/05/18 15:10 09/05/18 15:10 09/05/18 15:10 09/05/18 08:11 Oxygen Flow Rate (L/min) 3 Oxygen Delivery Method Nasal Cannula Weight: 214 lb 11.684 oz Body Mass Index (BMI) 41.9 Intake and Output for Last 24 Hours 09/03/18 09/04/18 09/05/18 23:59 23:59 23:59 Intake Total 3391 / 3391 2687 / 2687 Output Total 900 / 900 1000 / 1000 Balance 2491 / 2491 1687 / 1687 Microbiology Past 72 Hours 09/03/18 19:28 Gram Stain - Final Sputum, Expectorated/Coughed Respiratory Culture - Preliminary Appears to be normal respiratory nicolas. Further studies to follow. 09/03/18 20:06 Respiratory Panel (PCR) - Final Mucosa - Nasopharyngeal Laboratory Tests Past 24 Hrs 09/05/18 09/05/18 09/05/18 05:24 05:24 05:24 WBC 10.0 RBC 4.65 Hgb 13.0 Hct 41.2 MCV 88.6 MCH 28.0 MCHC 31.6 L RDW 14.3 RDW Differential 45.7 H Plt Count 123 L MPV 11.9 Sodium 137 Potassium 4.2 Chloride 100 Carbon Dioxide 30.0 Anion Gap 7 BUN 15 Creatinine 0.70 Estim Creat Clear Calc 58.32 Est GFR (MDRD) Af Amer 108 Est GFR (MDRD) Non-Af 89 BUN/Creatinine Ratio 21.4 H Glucose 265 H Calcium 9.1 Prealbumin 13.8 L Vancomycin Trough 6.5 POC Glucose 09/05/18 09/05/18 09/04/18 11:24 06:22 22:36 POC Glucose 387 H 251 H 405 H 09/04/18 16:33 POC Glucose 360 H Code Visit Inpatient E&M: 74167 Disch Hosp
[2018-09-05 11:31] LABS: Bedside Glucose 387 mg/dL (70-110)
--- NOTE | 2018-09-05 14:11 | CASEMGMT ---
Addendum entered by Amarjit Weiss 09/05/18 15:24: Call received, [place] @ [facility] can staff pt and will see her this weekend. Tray CANO Original Note: Addendum entered by Amarjit Weiss 09/05/18 14:55: Pt is out of area for staffing /[facility]. Call to [facility] () (fx) . They state can likely staff but need to review referral. Referral faxed. ISABELLA COTTO let pt know we sent referral to [facility]. Tray CANO Original Note: ISABELLA COTTO Note: Spoke with pt re: attempts to set up [facility] and awaiting call back from [facility]. ISABELLA COTTO let pt know if she is dc'd, Home can contact her at home when set up. Pt is agreeable. Tray CANO
== END 2018-09-05 15:16 | disposition home health service (06) | DRG 191 ==
LOC: ED 18:23 → MS2 18:53
PROVIDERS: Nurse Practitioner Family; Admitting Provider Family Medicine; Emergency Provider Emergency Medicine; Referring Provider Family Medicine; Visit Provider Student in an Organized Health Care Education/Training Program
DX: J44.1 Chronic obstructive pulmonary disease with (acute) exacerbation (principal); Z68.41 Body mass index [BMI] 40.0-44.9, adult; J96.11 Chronic respiratory failure with hypoxia; L73.2 Hidradenitis suppurativa; Z99.81 Dependence on supplemental oxygen; E66.01 Morbid (severe) obesity due to excess calories; G47.33 Obstructive sleep apnea (adult) (pediatric); K21.9 Gastro-esophageal reflux disease without esophagitis; Z87.891 Personal history of nicotine dependence; I10 Essential (primary) hypertension; R07.89 Other chest pain; N61.1 Abscess of the breast and nipple; E11.65 Type 2 diabetes mellitus with hyperglycemia; F41.9 Anxiety disorder, unspecified; Z79.4 Long term (current) use of insulin; F32.9 Major depressive disorder, single episode, unspecified; K22.2 Esophageal obstruction
CPT/HCPCS: 36415; 71046; 80048; 80061; 80202; 82962; 83036; 83735; 84134; 84484; 85025; 85027; 87070; 87205; 87633; 87641; 93005; 93306; 94640; 97802; 99251; 99285; J7030; J7050; A4216; G0463

== ENCOUNTER 2018-10-03 15:14 | Emergency (ER) | payer MEDICARE, SELFPAY ==
[2018-10-03] VITALS (8 sets, daily range): BP systolic 172; BP diastolic 98; PULSE 77–88; RESP 19–22; TEMP 37; O2SAT 92–95; BMI 94.7
--- NOTE | 2018-10-03 15:28 | EKG12_ITS ---
Test Reason : SOB Blood Pressure : / mmHG Vent. Rate : 082 BPM Atrial Rate : 082 BPM P-R Int : 162 ms QRS Dur : 084 ms QT Int : 412 ms P-R-T Axes : 060 -49 057 degrees QTc Int : 481 ms Normal sinus rhythm Possible Left atrial enlargement Left anterior fascicular block Left ventricular hypertrophy Nonspecific ST abnormality Abnormal ECG Confirmed by DONNELL FIGUEROA, ROSALIND ([id number]), tape editor POOJA FANG ([id number]) on 10/06/2018 1:56:40 PM Referred By: ROMY Confirmed By:ROSALIND JACOBO MD
--- NOTE | 2018-10-03 15:28 | RAD_ITS ---
STUDY: X-RAY CHEST REASON FOR EXAM: Female, 62 years old. Shortness of breath. TECHNIQUE: Frontal and lateral views of the chest. COMPARISON: September 03, 2018 FINDINGS: The lungs are mildly hyperexpanded and unchanged. There is a mild diffuse interstitial pattern unchanged. There is no demonstrated pleural abnormality. There is stable borderline cardiomegaly. Normal mediastinum and alan. Normal visualized pulmonary arteries. Normal visualized aortic arch and descending thoracic aorta. Normal visualized thoracic spine. Normal visualized ribs, clavicles, and shoulders. There is no demonstrated abnormality of the visualized soft tissue structures of the upper abdomen. RAD/Chest PA and Lateral IMPRESSION: Stable borderline cardiomegaly with hyperexpansion compatible with COPD. No acute abnormality. Electronically Signed: Herson Orona MD at 16:57 EST , Service support ,
--- NOTE | 2018-10-03 15:33 | ED.DCSUM_ITS ---
- ER Visit Summary Date of Service: 10/03/18 Chief Complaint: Shortness of breath History of Present Illness: The patient is a 62 F presenting for evaluation secondary to shortness of breath. Patient has an underlying history of COPD, is chronically on 3 L nasal cannula. Patient reports over the course last week she has been having worsening shortness of breath. Patient states that this is associated with a mild cough that is intermittently productive of sputum and subjective fevers. She denies any chills, sore throat, nausea vomiting diarrhea or any other infectious signs or symptoms. Patient states that in the last 24 hours however she has noticed that she has been getting some peripheral edema. She denies any history of congestive heart failure. She does have a history of hypertension. Patient endorses some orthopnea as well as dyspnea on exertion associated with this. Review of systems otherwise negative. Physical Examination: Vital signs notable blood pressure 172/98 patient's 95% on 3 L. Well-nourished obese female no acute distress. Moist mucous membranes, no JVD noted. Heart regular rate and rhythm. Patient was tachypneic with poor air movement, no significant rales rhonchi or wheezes were noted. Abdomen was soft and nontender. Extremities showed +1 nonpitting symmetric edema. Remainder of physical otherwise unremarkable. Test Results: EKG demonstrates sinus rhythm of 82 with a left anterior fascicular block, grossly unchanged from prior EKG. CBC unremarkable, chemistry shows glucose of 443, troponin and BNP are negative. Chest x-ray shows chronic changes consistent with COPD per my personal review and radiology. Emergency Department Course and Treatment: Patient presented for evaluation secondary to shortness of breath. She had poor air movement, and was given 2 albuterol treatments and a DuoNeb treatment in the emergency department. She did have some symptomatic improvement. Patient's workup was negative as noted above. This does seem more like a exacerbation of the patient's obstructive lung disease. Patient was able to ambulate in the emergency department, was tachypneic but does not desaturate on her normal home oxygen. I believe that she is appropriate for at least a trial of outpatient treatment. She understands signs and symptoms which to return. Patient's glucose was found to be 443 she was given an additional dose of 10 units of subcutaneous insulin and was instructed to keep close track of her blood sugars at home. She will follow-up with primary care early next week. Disposition: Discharge Impression: 1. COPD exacerbation 2. Hyperglycemia This note was generated with [employer] dictation software. It may contain incorrect words, spelling, and punctuation that were not noted in review of the chart prior to signing ED Disposition - Plan for ED Patient: Disposition: Home or Assisted Living Chief Complaint: Shortness of Breath Diagnosis: COPD exacerbation Instructions: ED COPD Flare Prescriptions: predniSONE tablet 60 mg PO DAILY #15 tab Referrals: Julio Reyes MD [Primary Care Provider] - 3-5 Days
[2018-10-03] MEDS: Ipratropium/Albuterol Sulfate 3 ML AMPUL.NEB INHALATION (15:45)
[2018-10-03] MEDS: Albuterol 2.5 MG/3 ML VIAL.NEB. INHALATION ×3 (16:03→16:55)
[2018-10-03 16:15] LABS: Anion Gap 7 (5-15); BUN 9 mg/dL (7-18); BUN/Creat Ratio 10.6 RATIO (10-20); Calcium,Total 9.5 mg/dL (8.5-10.1); Chloride 96 mmol/L (98-107); Creatinine, Serum 0.85 mg/dL (0.55-1.02); EST Glomerular Filtration Rate 71 mL/min (>60); Est Glom Filt Rate - Afr Amer 86 mL/min (>60); Estimated Creatinine Clearance 48.03 ml/min; Glucose 443 mg/dL (74-106); Potassium 3.9 mmol/L (3.5-5.1); Sodium Level 133 mmol/L (136-145)
[2018-10-03 16:16] LABS: Absolute Lymphocyte Count 1.55 X10^3/ul (0.83-4.51); Absolute Neutrophil Count 3.8 X10^3/uL (2.0-7.7); Basophil# 0.02 X10^3/uL; Basophil% 0.3 % (0-1); Eosinophil# 0.12 X10^3/uL; Eosinophils% 1.9 % (0-5); Hematocrit 43.4 % (37-47); Hemoglobin 13.9 g/dl (12.0-15.0); Lymphocyte # 1.55 X10^3/ul (4.0); Lymphocyte % 25.2 % (19-41); Mean Corpuscular Hgb 28.3 pg (27.0-32.0); Mean Corpuscular Volume 88.2 fL (81-99); Mean Platelet Vol. 11.8 fl (6.2-12.0); Monocyte# 0.69 X10^3/uL; Monocyte% 11.2 % (0-10); Neutrophil # 3.76 X10^3/uL (2.7-7.7); Neutrophil % 61.1 % (47-70); Platelet Count 110 K/mm3 (150-450); RBC Distribution Width CV 14.7 % (11.6-14.6); RBC Distribution Width SD 47.2 fl (35.1-43.9); Red Blood Count 4.92 M/mm3 (4.2-5.4); White Blood Count 6.2 K/mm3 (4.4-11.0)
[2018-10-03 16:17] LABS: POSITIVE COUNT NO; POSITIVE DIFFERENTIAL NO; POSITIVE MORPHOLOGY NO
[2018-10-03 16:21] LABS: BNP,B-Type NATRIURETIC PEPTIDE 47.6 pg/mL (0-100)
[2018-10-03] MEDS: predniSONE 20 MG Tablet 60 MG PO (17:11)
== END 2018-10-03 18:00 | disposition home or self-care (01) ==
PROVIDERS: Emergency Provider Emergency Medicine
DX: J44.1 Chronic obstructive pulmonary disease with (acute) exacerbation (principal); R73.9 Hyperglycemia, unspecified; R60.0 Localized edema; I44.4 Left anterior fascicular block; E66.9 Obesity, unspecified; I10 Essential (primary) hypertension; Z79.4 Long term (current) use of insulin; Z79.84 Long term (current) use of oral hypoglycemic drugs; Z79.899 Other long term (current) drug therapy
CPT/HCPCS: 71046; 80048; 83880; 84484; 85025; 93005; 94640; 96372; 99284

== ENCOUNTER → 2018-10-17 08:26 | Outpatient (CLI) | payer MEDICARE, SELFPAY ==
[2018-10-08 06:27] VITALS: BMI 42.3
[2018-10-17 09:31] VITALS: PULSE 63; PULSE 64; PULSE 78; PULSE 80; PULSE 82; PULSE 84; PULSE 96; O2SAT 87; O2SAT 88; O2SAT 90; O2SAT 91; O2SAT 94; O2SAT 96
--- NOTE | 2018-10-17 10:08 | CPS ---
Patient came in on 3L pulse dose O2. This RT took patient off O2 and patient's SpO2 did not drop below 88%. This RT began test, and at 1 min patient's SpO2 dropped to 88%. 3L pulse dose added at this time. At the 4 min denise this RT increased O2 to 4L pulse dose due to patient's SpO2 at 87%. Mohini Zarate RRT-SDS
--- NOTE | 2018-10-17 11:52 | WT_ITS ---
PSN 6 Minute Walk Test - 6 Minute Walk Test 6 Minute Walk Test: 6 Minute Walk Test PSN:6-Minute Walk Test Start: 10/17/18 09:22 Freq: Status: Active Protocol: [id number] Document 10/17/18 09:31 JLNessa (Rec: 10/17/18 10:12 JLA [id number]) 6 Minute Walk Test Date Performed 10/17/18 Time Performed 09:00 Height 5 ft Weight: 200 lb 14.792 oz Weight in Pounds 200.[address]: Pino Swan Assistive device used: Walker Pre-test Oxygen Delivery Method Room Air Pulse Ox (%) 90 Pulse Rate (60-100 beats/min) 63 Dyspnea Dandy Scale (0-10) 3 Exertion Dandy Scale (6-20) 6 1st minute Oxygen Delivery Method Room Air Pulse Ox (%) 88 Pulse Rate (60-100 beats/min) 80 Dyspnea Dandy Scale (0-10) 4 Exertion Dandy Scale (6-20) 13 2nd minute Oxygen Flow Rate (L/min) (L/min) 3 Oxygen Delivery Method Nasal Cannula Pulse Ox (%) 91 Pulse Rate (60-100 beats/min) 78 Number of Rests Taken 1 3rd minute Oxygen Flow Rate (L/min) (L/min) 3 Oxygen Delivery Method Nasal Cannula Pulse Ox (%) 90 Pulse Rate (60-100 beats/min) 82 4th minute Oxygen Flow Rate (L/min) (L/min) 3 Oxygen Delivery Method Nasal Cannula Pulse Ox (%) 87 Pulse Rate (60-100 beats/min) 82 5th minute Oxygen Flow Rate (L/min) (L/min) 4 Oxygen Delivery Method Nasal Cannula Pulse Rate (60-100 beats/min) 96 Dyspnea Dandy Scale (0-10) 74 6th minute Oxygen Flow Rate (L/min) (L/min) 4 Oxygen Delivery Method Room Air Pulse Ox (%) 94 Pulse Rate (60-100 beats/min) 84 Dyspnea Dandy Scale (0-10) 5 Exertion Dandy Scale (6-20) 14 Reported Symptoms Increased Work of Breathing Post-test Oxygen Flow Rate (L/min) (L/min) 4 Oxygen Delivery Method Nasal Cannula Pulse Ox (%) 96 Pulse Rate (60-100 beats/min) 64 Full Laps Walked 9 Partial Lap, Number of Tiles Walked 20 Total Distance Walked (ft) 551 10/17/18 10:08 Cardiopulmonary Services by Mohini Sierra Patient came in on 3L pulse dose O2. This RT took patient off O2 and patient's SpO2 did not drop below 88%. This RT began test, and at 1 min patient's SpO2 dropped to 88%. 3L pulse dose added at this time. At the 4 min denise this RT increased O2 to 4L pulse dose due to patient's SpO2 at 87%. Mohini Zarate RECEPTIONIST TELEPHONE OPERATOR-SDS Initialized on 10/17/18 10:08 - END OF NOTE - Interpretation Interpretation: The patient ambulated 551 feet over the course of 6 minutes beginning on room air with the use of a walker. Pretesting oxygen saturation was noted to be 90% on room air. With ambulation, the patient desaturated multiple times throughout the test, requiring an escalation in her supplemental oxygen flow rate to 4 L/min pulse dose. This testing indicates the presence of impaired walk distance and significant exertional oxygen desaturation. - Recommendations Recommendations: The patient should utilize 4 L/min pulse dose supplemental oxygen with exertion.
== END ==
PROVIDERS: Referring Provider Internal Medicine Critical Care Medicine; Visit Provider Internal Medicine Critical Care Medicine
DX: J44.9 Chronic obstructive pulmonary disease, unspecified (principal)
CPT/HCPCS: 94618

== ENCOUNTER → 2019-02-12 06:48 | Outpatient (CLI) | payer MEDICARE, SELFPAY ==
[2018-10-08 06:27] VITALS: BMI 42.3
[2018-10-24 13:35] VITALS: BMI 42.3
--- NOTE | 2019-02-12 15:18 | PFTCOMP ---
COMPLETE PULMONARY FUNCTION TEST INTERPRETATION Brief HPI: Patient is a 63 year old female, currently under the care of Dr. Swan, who presents to [facility] for complete pulmonary function tests secondary to diagnosis of COPD. Respiratory therapist reports good effort and reproducible results. Interpretation: Forced expiration spirometry shows a severe large airways obstructive ventilatory defect with an FEV1 of 41% predicted. There is no significant bronchodilator response by strict ATS criteria. Spirograms are of good quality and plateau slowly, indicating slowly emptying areas of the lungs. The respiratory flow volume loop shows decreased expiratory flow rates at all lung volumes consistent with airway obstruction. Lung volumes by body plethysmography show an elevated total lung capacity at 6.13 L, 151% predicted. FRC and RV are elevated out of proportion. Lung volume measurements are consistent with hyperinflation and air-trapping. Diffusion capacity by carbon monoxide is decreased at 54% predicted. The airway resistance is elevated. No previous pulmonary function tests were available for review. Impression: Irreversible severe large airways obstructive ventilatory defect with a symmetric reduction diffusing capacity, resulting in air trapping with hyperinflation, and in a pattern consistent with advanced COPD.
== END ==
PROVIDERS: Referring Provider Internal Medicine Critical Care Medicine; Visit Provider Internal Medicine Critical Care Medicine
DX: J44.9 Chronic obstructive pulmonary disease, unspecified (principal)
CPT/HCPCS: 94060; 94726; 94729

== ENCOUNTER → 2019-02-24 | Outpatient (CLI) | payer MEDICARE, SELFPAY ==
[2018-10-24 13:35] VITALS: BMI 42.3
--- NOTE | 2019-02-24 14:13 | RAD_ITS ---
STUDY: X-RAY - PELVIS REASON FOR EXAM: Female, 63 years old. Psoriatic arthropathy TECHNIQUE: One view of the pelvis was obtained. COMPARISON: None. FINDINGS: There is a normal bowel gas pattern. Normal visualized soft tissue structures. There is diffuse demineralization of the osseous structures. Normal bilateral iliac wings, sacroiliac joints and visualized sacrum. Normal visualized bilateral superior and inferior pubic rami. Normal pubic symphysis. Normal ischial tuberosities. Normal visualized right femoral head. Normal right acetabulum. Normal right hip joint. Normal visualized left femoral head. Normal left acetabulum. Normal left hip joint. RAD/Pelvis 1 or 2 Views IMPRESSION: No fracture or erosion. Demineralization. Electronically Signed: Jimi Breaux MD at 21:55 EDT , Service support ,
[2019-02-24 15:28] LABS: Absolute Lymphocyte Count 1.83 X10^3/ul (0.83-4.51); Absolute Neutrophil Count 6.4 X10^3/uL (2.0-7.7); Basophil# 0.02 X10^3/uL; Basophil% 0.2 % (0-1); Differential Indicated SCAN CRITERIA MET; Eosinophil# 0.13 X10^3/uL; Eosinophils% 1.4 % (0-5); Lymphocyte # 1.83 X10^3/ul (4.0); Lymphocyte % 19.3 % (19-41); Mean Corp Hgb Conc 31.8 g/gl (32-36); Mean Corpuscular Hgb 26.5 pg (27.0-32.0); Mean Corpuscular Volume 83.2 fL (81-99); Monocyte# 1.07 X10^3/uL; Monocyte% 11.3 % (0-10); Neutrophil % 67.7 % (47-70); POSITIVE COUNT NO; POSITIVE DIFFERENTIAL NO; POSITIVE MORPHOLOGY YES; Platelet Count 88 K/mm3 (150-450); RBC Distribution Width CV 14.8 % (11.6-14.6); RBC Distribution Width SD 45.1 fl (35.1-43.9); Red Blood Count 5.29 M/mm3 (4.2-5.4); White Blood Count 9.5 K/mm3 (4.4-11.0)
[2019-02-24 15:45] LABS: Erythrocyte Sedimentation Rate 81 mm/hr (0-30)
[2019-02-24 15:50] LABS: ALB/GLOB Ratio 0.7 RATIO (0.9-2.4); AST(SGOT) 36 U/L (15-37); Alanine Aminotransfer ALT/SGPT 39 U/L (13-56); Albumin, Serum 3.6 g/dL (3.2-5.0); Alkaline Phosphatase 147 U/L (45-117); BUN 6 mg/dL (7-18); BUN/Creat Ratio 9.1 RATIO (10-20); Calcium,Total 9.3 mg/dL (8.5-10.1); Chloride 95 mmol/L (98-107); Creatinine, Serum 0.66 mg/dL (0.55-1.02); EST Glomerular Filtration Rate 96 mL/min (>60); Est Glom Filt Rate - Afr Amer 116 mL/min (>60); Globulin 4.9 g/dL (2.2-4.2); Glucose 345 mg/dL (74-106); Potassium 3.4 mmol/L (3.5-5.1); Protein, Total 8.5 g/dL (6.4-8.2); Sodium Level 135 mmol/L (136-145)
[2019-02-24 15:51] LABS: Anion Gap 9 (5-15); CRP 4.55 mg/L (0.0-3.0); Rheumatoid Factor < 10.0 IU/mL (<15)
[2019-02-24 16:03] LABS: Anisocytosis RARE; Platelet Estimate MOD DEC (ADEQ); Platelet Morphology LARGE; Red Cell Morphology NORM C+C NORMAL (NORM C&C)
[2019-02-27 12:50] LABS: ANTINUCLEAR ANTIBODIES DIRECT Negative (Negative)
[2019-03-02 13:00] LABS: CCP IgG Antibodies 10 units (0-19); HEPATITIS B SURFACE AG Negative (Negative); HLA B27 Negative (.); Hep B Surface Antibodies Non Reactive (.); Hep C Antibodies <0.1 s/co ratio (0.0-0.9)
== END | disposition home or self-care (01) ==
LOC: MTLAB 14:11
PROVIDERS: Referring Provider Internal Medicine Rheumatology; Visit Provider Internal Medicine Rheumatology
DX: L40.59 Other psoriatic arthropathy (principal); L40.8 Other psoriasis; F41.9 Anxiety disorder, unspecified
CPT/HCPCS: 36415; 72170; 80053; 81374; 85025; 85652; 86038; 86140; 86200; 86431; 86706; 86803; 87340

== ENCOUNTER → 2019-06-25 | Outpatient (CLI) | payer MEDICARE, SELFPAY ==
[2019-06-25 08:24] VITALS: BMI 39.4
[2019-06-25 14:14] LABS: Anion Gap 8 (5-15); BUN 11 mg/dL (7-18); BUN/Creat Ratio 13.3 RATIO (10-20); Calcium,Total 9.2 mg/dL (8.5-10.1); Chloride 99 mmol/L (98-107); Creatinine, Serum 0.83 mg/dL (0.55-1.02); EST Glomerular Filtration Rate 74 mL/min (>60); Est Glom Filt Rate - Afr Amer 89 mL/min (>60); Glucose 211 mg/dL (74-106); Potassium 2.9 mmol/L (3.5-5.1); Sodium Level 138 mmol/L (136-145)
[2019-06-25 14:23] LABS: BNP,B-Type NATRIURETIC PEPTIDE 28.8 pg/mL (0-100)
== END | disposition home or self-care (01) ==
LOC: PAVLAB 13:29
PROVIDERS: Referring Provider Nurse Practitioner Acute Care; Visit Provider Nurse Practitioner Acute Care
DX: J44.9 Chronic obstructive pulmonary disease, unspecified (principal); R06.00 Dyspnea, unspecified
CPT/HCPCS: 36415; 80048; 83880

== ENCOUNTER → 2019-06-26 | Outpatient (CLI) | payer MEDICARE, SELFPAY ==
[2019-06-25 08:24] VITALS: BMI 39.4
--- NOTE | 2019-06-26 09:18 | RAD_ITS ---
STUDY: X-RAY CHEST REASON FOR EXAM: Female, 63 years old. Increasing shortness of breath TECHNIQUE: PA and lateral COMPARISON: October 03, 2018 FINDINGS: Lungs are hyperinflated and there are chronic interstitial changes noted most severe in the lower lobes.. There is no demonstrated pleural abnormality. Mild cardiomegaly. Normal mediastinum and alan. Normal visualized pulmonary arteries. Normal visualized aortic arch and descending thoracic aorta. Normal visualized thoracic spine. Normal visualized, clavicles, and shoulders. Multiple old healed left rib fractures There is no demonstrated abnormality of the visualized soft tissue structures of the upper abdomen. No significant change since prior study RAD/Chest PA and Lateral IMPRESSION: COPD. No acute cardio pulmonary pathology Electronically Signed: Polo Newsome MD at 17:13 EDT , Service support ,
== END | disposition home or self-care (01) ==
LOC: RAD 09:16
PROVIDERS: Referring Provider Nurse Practitioner Acute Care; Visit Provider Nurse Practitioner Acute Care
DX: J44.9 Chronic obstructive pulmonary disease, unspecified (principal)
CPT/HCPCS: 71046

== ENCOUNTER → 2019-07-28 13:30 | Outpatient (CLI) | payer MEDICARE, SELFPAY ==
[2019-06-25 08:24] VITALS: BMI 39.4
--- NOTE | 2019-07-28 13:32 | ECHOD_ITS ---
Reason For Study: DYSPNEA/SOB Procedure This was a 2D Doppler, Color Flow transthoracic echocardiogram. The study was technically difficult. Exam performed with door open due to claustrophobia and anxiety. PT struggled getting through exam. Exam ended at end of apical views per patient unable to lie on back and anxiety. Exam performed in department. Left Ventricle Left ventricular systolic function is normal. The estimated ejection fraction is 65 %. There is evidence of diastolic dysfunction. No regional wall motion abnormalities noted. Right Ventricle Normal RV size. Normal systolic function. Atria The left atrium is mildly enlarged. Normal right atrium. No doppler evidence for ASD. Mitral Valve There is no mitral annular calcification. Normal mitral valve. Trivial mitral valve insufficiency. Tricuspid Valve Normal tricuspid valve. Trivial tricuspid valve insufficiency. Right ventricular systolic pressure estimated to be 27 mmHg. Aortic Valve Trisinus/trileaflet aortic valve. Normal aortic valve. Pulmonic Valve The pulmonic valve is not well visualized. Great Vessels Normal sized aortic root. Pericardium/Pleural No pericardial effusion. MMode/2D Measurements & Calculations LVIDd: 4.7 cm IVSd: 0.95 cm Ao root diam: 3.0 cm LVIDs: 2.6 cm LVPWd: 1.2 cm RVDd: 3.1 cm FS: 45.2 % LAV(MOD-bp): 68.6 ml LA A4 area: 21.1 cm2 LA dimension(2D): 3.7 cm LAV(MOD-bp) Indexed: 36.0 ml/m2 LAV(MOD-sp2): 64.0 ml LAV(MOD-sp4): 64.0 ml RA A4 area: 17.8 cm2 Time Measurements MV dec time: 0.25 sec Doppler Measurements & Calculations MV E max ab: 95.7 cm/sec Lat Peak E' Ab: 5.7 cm/sec Med Peak E' Ab: 5.5 cm/sec MV A max ab: 123.6 cm/sec E/E' lat: 16.9 E/E' med: 17.4 MV E/A: 0.77 Ao V2 max: 169.7 cm/sec LV V1 max: 141.1 cm/sec PA V2 max: 112.9 cm/sec Ao max P.5 mmHg LV V1 max P.0 mmHg TR max ab: 243.4 cm/sec TR max P.7 mmHg Interpretation Summary The study was technically difficult. Left ventricular systolic function is normal. The estimated ejection fraction is 65 %. The left atrium is mildly enlarged. Trivial mitral valve insufficiency. Trivial tricuspid valve insufficiency. Right ventricular systolic pressure estimated to be 27 mmHg. There is evidence of diastolic dysfunction. Ordering Physician: Sara Rubin Referring Physician: Julio Reyes Performed By: Siobhan Malik, RDCS, RVT
== END ==
PROVIDERS: Referring Provider Nurse Practitioner Acute Care; Visit Provider Nurse Practitioner Acute Care
DX: G47.33 Obstructive sleep apnea (adult) (pediatric) (principal); J44.9 Chronic obstructive pulmonary disease, unspecified; R06.00 Dyspnea, unspecified
CPT/HCPCS: 93306; 98960; G0463

== ENCOUNTER → 2020-11-11 12:34 | Outpatient (CLI) | payer MEDICARE, SELFPAY ==
[2019-12-30 07:48] VITALS: BMI 40.2
--- NOTE | 2020-11-11 12:37 | CT_ITS ---
STUDY: LOW DOSE CT LUNG CANCER SCREENING REASON FOR EXAM: Female, 65 years old. SCREENING -- PRIOR SMOKER--2PPD X40+ YEARS -- HX-DIAB,HTN,COPD,ASTHMA,EMPHYSEMA RADIATION DOSAGE (If Supplied By Facility): CTDIvol = ( 4.02 ) mGy, DLP = ( 130.89 ) mGycm TECHNIQUE: No contrast was administered. Low dose technique was utilized (average mAS-38 and kVp 120). 1.25 mm axial source images with a slice interval of 1.25-mm were reconstructed in lung windows. 2.5 mm axial source images with a slice interval of 2.5-mm were reconstructed in lung windows. 5.0 mm axial source images with a slice interval of 5.0-mm were reconstructed in soft tissue windows. Nodule measured using lung windows on PACS and/or independent workstation with automated measurement of minimum and maximum diameter. Nodule measurement reported as average diameter rounded to the nearest whole number. Growth is defined as an increase ins size of greater than 1.5 mm. COMPARISON: None. NODULES: No suspicious nodules are seen. Emphysema: Hyperinflation. Minimal increased linear markings in the anterior medial aspect of the right upper lobe suggestive of a scarring. Minimal linear scarring at the lung bases. Endobronchial lesion: None Aorta: Mild degree of atherosclerotic calcification of the aortic arch. Coronary arteries: Coronary artery calcification. Heart: Unremarkable Pulmonary artery: Unremarkable Mediastinal nodes: Small mediastinal lymph nodes. CT/Low Dose CT Lung Screening IMPRESSION: Lung-RADS category 2 - Continue annual screening with LDCT in 12 months. IMPORTANT NOTES FOR USE: ACR Lung-RADS Version 1.0 Assessment Categories Release Date: February 22, 2014 Category: Coded 0-4 bases on nodule(s) with highest degree of suspicion. Negative screen is defined as categories 1 and 2; a positive screen is defined as categories 3 and 4. Category 3 and 4A nodules that are unchanged on interval CT should be coded as category 2, and individuals returned to screening in 12 months. Category 4X: Category 3 or 4 nodules with additional imaging findings that increase the suspicion of lung cancer, such as spiculation, GGN that doubles in size in 1 year, enlarged lymph notes, etc. Category Modifiers: S (significant finding unrelated to lung cancer) and C (prior history of treated lung cancer) may be added to the 0-4 Lung-RADS Electronically Signed: Khanh Barakat, at 14:10 EST , Service support ,
== END ==
PROVIDERS: Referring Provider Internal Medicine Pulmonary Disease; Visit Provider Internal Medicine Pulmonary Disease
DX: Z87.891 Personal history of nicotine dependence (principal)
CPT/HCPCS: 71271

== ENCOUNTER → 2021-01-10 12:43 | Outpatient (CLI) | payer MEDICARE, SELFPAY ==
[2019-12-30 07:48] VITALS: BMI 40.2
--- NOTE | 2021-01-10 12:46 | ECHOD_ITS ---
Version 2 Reason For Study: PHTN Procedure This was a 2D Doppler, Color Flow transthoracic echocardiogram. Technically difficult study due to patients body habitus. Exam performed in department. Left Ventricle Normal size and thickness. Mild concentric left ventricular hypertrophy. Left ventricular systolic function is normal. The estimated ejection fraction is 55 %. No regional wall motion abnormalities noted. Right Ventricle Normal RV size. Normal systolic function. Atria Normal left atrium. Normal right atrium. Mitral Valve Normal mitral valve. Tricuspid Valve Normal tricuspid valve. Mild tricuspid valve insufficiency. Pulmonary artery systolic pressure is 20 mmHg. Aortic Valve Trisinus/trileaflet aortic valve. Pulmonic Valve The pulmonic valve is not well visualized. Great Vessels Normal aortic root. The pulmonary artery is normal size. Normal inferior vena cava. Pericardium/Pleural No pericardial effusion. MMode/2D Measurements & Calculations LVIDd: 4.9 cm IVSd: 1.3 cm LA dimension: 4.7 cm LVIDs: 2.8 cm LVPWd: 1.2 cm FS: 42.8 % LAV(MOD-bp): 65.1 ml LA A4 area: 21.3 cm2 RA A4 area: 16.5 cm2 LAV(MOD-bp) Indexed: 33.7 ml/m2 LAV(MOD-sp2): 64.3 ml LAV(MOD-sp4): 61.6 ml Time Measurements MV dec time: 0.27 sec Doppler Measurements & Calculations MV E max ab: 100.4 cm/sec Lat Peak E' Ab: 8.6 cm/sec Med Peak E' Ab: 7.0 cm/sec MV A max ab: 116.6 cm/sec E/E' lat: 11.6 E/E' med: 14.4 MV E/A: 0.86 MV V2 max: 119.4 cm/sec MV P1/2t max ab: 106.9 cm/sec Ao V2 max: 172.3 cm/sec MV max P.7 mmHg MV P1/2t: 87.0 msec Ao max P.9 mmHg MV V2 mean: 68.5 cm/sec MV dec slope: 359.9 cm/sec2 MV mean P.2 mmHg MVA(P1/2t): 2.5 cm2 MV V2 VTI: 33.3 cm LV V1 max: 165.2 cm/sec PA V2 max: 126.2 cm/sec TR max ab: 209.7 cm/sec LV V1 max P.9 mmHg TR max P.6 mmHg Interpretation Summary Normal size and thickness. Left ventricular systolic function is normal. The estimated ejection fraction is 55 %. Mild tricuspid valve insufficiency. Pulmonary artery systolic pressure is 20 mmHg. Mild concentric left ventricular hypertrophy. Ordering Physician: Neville Kent Performed By: Ludwin Hollingsworth RCS
== END ==
PROVIDERS: PCP Nurse Practitioner Family; Visit Provider Internal Medicine Pulmonary Disease
DX: I27.20 Pulmonary hypertension, unspecified (principal)
CPT/HCPCS: 93306

== ENCOUNTER 2021-03-21 00:36 | Observation (INO) | payer MEDICARE, SELFPAY ==
[2019-12-30 07:48] VITALS: BMI 40.2
[2021-03-21] VITALS (8 sets, daily range): BP systolic 145–159; BP diastolic 62–90; PULSE 100–130; RESP 18–24; TEMP 36.9–37.3; O2SAT 94–99; BMI 45.2; BMI 44.7
--- NOTE | 2021-03-21 01:10 | CT_ITS ---
STUDY: CT ABDOMEN AND PELVIS WITHOUT CONTRAST REASON FOR EXAM: Female, 65 years old. Pain RADIATION DOSAGE (If Supplied By Facility): CTDIvol = ( 22.01 ) mGy, DLP = ( 989.52 ) mGycm TECHNIQUE: Transaxial images were obtained from the dome of the diaphragm to the symphysis pubis without oral contrast, and without intravenous contrast. Sagittal and coronal images were reconstructed. Individualized dose optimization techniques were used for this CT. COMPARISON: None. FINDINGS: The visualized lung bases are unremarkable. The visualized portions of the heart are within normal limits. Sclerotic appearance of the liver with shrunken appearance and contour nodularity. No discrete mass. Likely small stones versus gallbladder sludge, otherwise unremarkable gallbladder. Normal spleen. Normal pancreas. Small volume ascites fluid in the upper abdomen as well as the pelvis. Normal bilateral adrenal glands. Normal right kidney. Likely exophytic left renal cyst measuring 5 x 4 cm. Otherwise, unremarkable unenhanced kidneys. Normal visualized stomach. Normal small intestine. There are multiple colonic diverticula consistent with diverticulosis. There is non-visualization of the appendix. There is diffuse atherosclerotic calcification of the abdominal aorta, without a demonstrated aneurysm. Normal inferior vena cava. Normal retroperitoneum. Normal urinary bladder. Status post hysterectomy. Pelvic free fluid is noted Normal abdominal wall. Normal osseous structures. CT/Abdomen/Pelvis without Cont IMPRESSION: Cirrhotic appearance of the liver. Mild to moderate volume ascites fluid throughout the abdomen and pelvis. Likely cholelithiasis however, no evidence of acute cholecystitis. Evidence of bowel obstruction. Exophytic left renal cyst. Electronically Signed: Rene Rutledge DO at 2:00 EDT Tel , Service support ,
--- NOTE | 2021-03-21 01:10 | EKG12_ITS ---
Test Reason : ABD PAIN Blood Pressure : / mmHG Vent. Rate : 116 BPM Atrial Rate : 117 BPM P-R Int : 168 ms QRS Dur : 090 ms QT Int : 350 ms P-R-T Axes : 000 -47 074 degrees QTc Int : 486 ms Sinus tachycardia Left anterior fascicular block Minimal voltage criteria for LVH, may be normal variant Nonspecific ST abnormality Poor R wave progression Abnormal ECG Confirmed by ARGENIS FIGUEROA, JALEESA ([id number]), editor in chief newspaper JUNG LINDSAY ([id number]) on 03/22/2021 9:46:17 AM Referred By: CHARITY Confirmed By:JALEESA MORE MD
--- NOTE | 2021-03-21 01:11 | EDS_ITS ---
HPI HPI - GI History of Present Illness Chief Complaint: Abd Pain Detail of Chief Complaint: Abdominal pain and belching for several weeks Informant: patient Narrative Narrative: Patient presents with 2-week history of increasing abdominal discomfort and belching. Patient's been using Gas-X and Mylanta but this week and it really has not helped very much. Patient has not had any vomiting. She denies fever. She is currently on hospice for history of COPD. Patient's last bowel movement was at 10 PM last evening. Patient states her stools are always loose. She does describe abdominal distention. Patient denies any blood in her stool or black tarry stool. She denies urinary symptoms. [facility] Medical History (Updated 03/21/21 @ 03:[address] Sasha Zayas, ) Anxiety and depression Arthritis Asthma Back problem Benign essential HTN Breast lump Bronchitis Chronic obstructive pulmonary disease with acute exacerbation Furuncle of axilla Furuncle of groin GERD (gastroesophageal reflux disease) Hearing problem History of recurrent infection History of recurrent UTI (urinary tract infection) Hypoxemia IBS (irritable bowel syndrome) Mixed hyperlipidemia Nonalcoholic fatty liver disease Rib fracture Right sided sciatica Seasonal allergies Skin cancer Type 2 diabetes mellitus Vision problems Vitamin deficiency Home Medications fluoxetine 20 mg capsule 60 mg PO DAILY cap 08/22/18 [History Last Taken 09/03/18] furosemide 20 mg tablet 20 mg PO DAILY PRN 08/22/18 [History Last Taken Unknown] glimepiride 2 mg tablet 2 mg PO QAM 08/22/18 [History Last Taken 09/03/18] ipratropium bromide 0.02 % solution for inhalation 2.5 ml INHALATION Q6H 08/22/18 [History Last Taken 09/03/18] lisinopril 20 mg-hydrochlorothiazide 25 mg tablet 1 tab PO DAILY 08/22/18 [History Last Taken 09/03/18] montelukast 10 mg tablet 10 mg PO QPM 08/22/18 [History Last Taken 09/02/18] omeprazole 40 mg capsule,delayed release 40 mg PO DAILY 08/22/18 [History Last Taken 09/03/18] pravastatin 40 mg tablet 40 mg PO DAILY 08/22/18 [History Last Taken 09/02/18] trazodone 150 mg tablet 150 mg PO DAILY 08/22/18 [History Last Taken 09/02/18] hydroxyzine HCl 25 mg PO PRN PRN 09/03/18 [History Last Taken 09/03/18] insulin NPH isoph U-100 human 60 unit SQ BREAKFAST 09/03/18 [History Last Taken 09/03/18] insulin NPH isoph U-100 human 60 unit SQ DINNER #0 09/05/18 [Rx Last Taken 09/02/18] insulin regular human See Protocol SUBCUT ACHS #0 09/05/18 [Rx Last Taken 09/01/18] albuterol sulfate 2.5 mg INHALATION Q4H PRN #180 ml 08/27/19 [Rx Last Taken Unknown] alprazolam 0.25 mg tablet 0.25 mg PO DAILY PRN 08/27/19 [History Last Taken Unknown] baclofen 5 mg tablet 5 mg PO DAILY PRN 08/27/19 [History Last Taken Unknown] budesonide 0.5 mg/2 mL suspension for nebulization 2 ml INHALATION BID #60 vial 08/27/19 [Rx Last Taken Unknown] ipratropium 0.5 mg-albuterol 3 mg (2.5 mg base)/3 mL nebulization soln 3 ml INHALATION Q6H #180 vial 08/27/19 [Rx Last Taken Unknown] metoprolol succinate 50 mg tablet,extended release 24 hr 100 mg PO DAILY tab 08/27/19 [History Last Taken Unknown] potassium chloride 8 mEq capsule,extended release 8 meq PO DAILY 08/27/19 [History Last Taken Unknown] albuterol sulfate 90 mcg/actuation aerosol inhaler 1 - 2 puff INHALATION Q4H PRN PRN #1 device 11/03/19 [Rx Last Taken Unknown] fluticasone fur. 100 mcg-umeclid 62.5 mcg-vilant 25 mcg inhalat.powder 1 inh INHALATION QDAY #60 ea 01/28/20 [Rx Last Taken Unknown] Allergy/AdvReac Type Severity Reaction Status Date / Time Sulfa (Sulfonamide Allergy Mild Hives Verified 03/21/21 00:41 Antibiotics) latex Allergy Rash Verified 03/21/21 00:41 ciprofloxacin AdvReac Mild Nausea/Vom/ Verified 03/21/21 00:41 Diarrhea Family History Daughter Anemia Anxiety Asthma Depression (emotion) Mother Anxiety Arthritis Depression (emotion) Diabetes Grandmother Diabetes Grandfather Diabetes Surgical History History of appendectomy History of section History of hysterectomy Tubal infertility in female Social History (Updated 12/30/19 @ 08:42 by Sara Rubin COLD WORK OPERATOR, COLD WORK OPERATOR-C) Smoking Status: Former smoker how long ago did patient quit smokin, 2ppd second hand exposure: Yes alcohol intake: never substance use type: does not use additional social history: DOES NOT USE ASPIRIN DOES NOT USE IBUPROFEN ROS ROS ED Constitutional Constitutional ED: Reports systems reviewed and no addt'l complaints, except as documented; Denies body ache(s), change in weight or chills Eyes Eyes: Denies acute decrease in peripheral vision, change in vision, double vision or loss of vision ENT ENT ED: Reports none; Denies ear pain, lip swelling, loss taste/smell, neck pain, otalgia or sore throat Cardiovascular Cardiovascular: Reports none; Denies abdominal pain, chest pain with activity, leg edema, lightheadedness, palpitations, rapid heart rate or syncope Respiratory/Chest Respiratory/Chest: Reports none; Denies change in mental status, dry cough, dyspnea, hemoptysis, shortness of breath at rest or shortness of breath with exertion Gastrointestinal Gastrointestinal: Reports none, abdominal pain and other Details: Belching ; Denies change in stool character, diarrhea, hematemesis, hematochezia, melena, rectal bleeding or vomiting Genitourinary Genitourinary ED: Reports none; Denies abdominal discomfort, anuria, dysuria, genital pain or polyuria Musculoskeletal Musculoskeletal: Reports none; Denies arthralgias, back pain, difficulty walking, extremity pain, muscle weakness or myalgias Integumentary Reports none; Denies abscess or rash Neurologic Neurologic: Reports none; Denies abnormal gait, confusion, focal weakness, frequent falls, headache(s), loss of vision, numbness, paresthesias, radicular pain, vertigo or weakness Psychiatric Psychiatric: Reports systems reviewed and no addt'l complaints, except as documented and none; Denies behavioral changes, confusion, difficulty concentrating, hallucinations, suicidal ideation, tactile hallucinations or visual hallucinations Endocrine Endocrinology: Denies none, cold intolerance, excessive sweating, fatigue or heat intolerance Hematologic/Lymphatic Hematologic/Lymphatic: Reports none; Denies anemia, easy bleeding or easy bruising Allergic/Immunologic Allergic/Immunologic ED: Denies as per HPI, none, lip swelling, mouth swelling, throat swelling, tongue swelling or hives EXAM Physical Exam Const Vital Signs: 03/21/21 00:37 Temperature 99.1 F Temperature Source Oral Pulse Rate 130 H Blood Pressure 159/90 H Blood Pressure Mean 113 Pulse Ox 94 Oxygen Delivery Method Nasal Cannula Oxygen Flow Rate (L/min) 3 Positive well nourished and well developed General Appearance ED: well developed and NAD HEENT Reports TM's clear and moist mucous membranes normocephalic and atraumatic; Negative for trauma or tenderness Tympanic Membrane ED: Yes TM's clear Eyes PERRL and EOMs intact bilaterally General Eye ED: Negative for pale conjunctiva or scleral icterus Neck no lymphadenopathy, supple and no JVD General: Negative for tenderness Chest Wall inspection of chest normal and palpation of chest normal Chest: Negative for tenderness Resp normal respiratory effort and clear to auscultation bilaterally Effort and Inspection: Negative for respiratory distress or pain with movement Auscultation: Negative for rhonchi, wheezes or diminished lung sounds Cardio regular rate, regular rhythm, S1 normal heart sound, S2 normal heart sound and no murmurs Peripheral Pulses: pulses 2+ throughout GI normal to inspection, nondistended, normoactive bowel sounds, soft to palpation and no masses; Negative for non-tender or non-distended Inspection: abdominal distention Palpation: tender and guarding Back/Spine no CVA tenderness and no thoracic nor lumbar tenderness Extremity normal to inspection General Extremety ED: Negative for edema General Extremity: Negative for edema Neuro oriented x3, CN's II-XII intact bilaterally, no sensory deficits noted and gait normal Sensorium / Orientation: awake, alert, oriented to person, oriented to place and oriented to time Motor Exam: strength 5/5 throughout and strength abnormal Psych mental status grossly normal Skin no rashes or lesions noted and no wounds MDM MDM MDM Narrative Medical decision making narrative: Patient with intractable belching and continued abdominal pain. At this point etiology of her discomfort unclear. Patient does have a slight lactic acidosis. We will admit for observation. Will admit for symptom management. Lab Data Attestation: I reviewed the patient's lab results. Labs: Laboratory Results - last 24 hr 03/21/21 03/21/21 03/21/21 01:25 01:25 01:25 WBC Cancelled Corrected WBC Cancelled RBC Cancelled Hgb Cancelled Hct Cancelled MCV Cancelled MCH Cancelled MCHC Cancelled RDW Std Deviation Cancelled RDW Coeff of Clayton Cancelled Plt Count Cancelled MPV Cancelled Immature Gran % (Auto) Cancelled Neut % (Auto) Cancelled Lymph % (Auto) Cancelled Hutchinson % (Auto) Cancelled Eos % (Auto) Cancelled Baso % (Auto) Cancelled Absolute Neuts (auto) Cancelled Absolute Lymphs (auto) Cancelled Total Counted Cancelled Neutrophils % (Manual) Cancelled Band Neutrophils % Cancelled Lymphocytes % (Manual) Cancelled Monocytes % (Manual) Cancelled Eosinophils % (Manual) Cancelled Basophils % (Manual) Cancelled Metamyelocytes % Cancelled Myelocytes % Cancelled Promyelocytes % Cancelled Blast Cells % Cancelled Plasma Cell % (Manual) Cancelled Other Cells % Cancelled Nucleated RBC % Cancelled Nucleated RBCs/100 WBC Cancelled Differential Comment Cancelled Diff Path Review Cancelled Hypersegmented Neuts Cancelled Atypical Lymphocytes Cancelled Reactive Lymphocytes Cancelled Smudge Cells Cancelled Toxic Granulation Cancelled Toxic Vacuolation Cancelled Dohle Bodies Cancelled Sonia Rods Cancelled Platelet Estimate Cancelled Plt Morphology Comment Cancelled RBC Morphology Cancelled Polychromasia Cancelled Hypochromasia Cancelled Poikilocytosis Cancelled Basophilic Stippling Cancelled Anisocytosis Cancelled Microcytosis Cancelled Macrocytosis Cancelled Spherocytes Cancelled Sickle Cells Cancelled Target Cells Cancelled Tear Drop Cells Cancelled Ovalocytes Cancelled Stomatocytes Cancelled [place] Bodies Cancelled Suzan Cells Cancelled Bite Cells Cancelled Crenated Cell Cancelled Acanthocytes (Spur) Cancelled Rouleaux Cancelled Schistocytes Cancelled Sodium Cancelled Potassium Cancelled Chloride Cancelled Carbon Dioxide Cancelled Anion Gap Cancelled BUN Cancelled Creatinine Cancelled Estim Creat Clear Calc Cancelled Est GFR (MDRD) Af Amer Cancelled Est GFR (MDRD) Non-Af Cancelled BUN/Creatinine Ratio Cancelled Glucose Cancelled Lactic Acid Cancelled Calcium Cancelled Total Bilirubin Cancelled AST Cancelled ALT Cancelled Alkaline Phosphatase Cancelled Troponin I Cancelled Total Protein Cancelled Albumin Cancelled Globulin Cancelled Albumin/Globulin Ratio Cancelled Lipase Cancelled 03/21/21 03/21/21 03/21/21 02:15 02:15 02:15 WBC 8.1 Corrected WBC RBC 4.81 Hgb 11.6 L Hct 38.1 MCV 79.2 L MCH 24.1 L MCHC 30.4 L RDW Std Deviation 48.2 H RDW Coeff of Clayton 16.6 H Plt Count 93 L MPV 11.4 Immature Gran % (Auto) 0.200 Neut % (Auto) 72.7 H Lymph % (Auto) 16.7 L Hutchinson % (Auto) 9.1 Eos % (Auto) 0.9 Baso % (Auto) 0.4 Absolute Neuts (auto) 5.9 Absolute Lymphs (auto) 1.35 Total Counted Neutrophils % (Manual) Band Neutrophils % Lymphocytes % (Manual) Monocytes % (Manual) Eosinophils % (Manual) Basophils % (Manual) Metamyelocytes % Myelocytes % Promyelocytes % Blast Cells % Plasma Cell % (Manual) Other Cells % Nucleated RBC % 0 Nucleated RBCs/100 WBC Differential Comment Diff Path Review Hypersegmented Neuts Atypical Lymphocytes Reactive Lymphocytes Smudge Cells Toxic Granulation Toxic Vacuolation Dohle Bodies Sonia Rods Platelet Estimate SLT DEC Plt Morphology Comment RBC Morphology Polychromasia Hypochromasia Poikilocytosis Basophilic Stippling Anisocytosis Microcytosis Macrocytosis Spherocytes Sickle Cells Target Cells Tear Drop Cells Ovalocytes Stomatocytes [place] Bodies Suzan Cells Bite Cells Crenated Cell Acanthocytes (Spur) Rouleaux Schistocytes Sodium 135 L Potassium 3.4 L Chloride 98 Carbon Dioxide 30.0 Anion Gap 7 BUN 8 Creatinine 0.75 Estim Creat Clear Calc 39.21 Est GFR (MDRD) Af Amer 100 Est GFR (MDRD) Non-Af 82 BUN/Creatinine Ratio 10.7 Glucose 243 H Lactic Acid 2.4 H* Calcium 9.7 Total Bilirubin 0.70 AST 54 H ALT 41 Alkaline Phosphatase 168 H Troponin I 0.021 Total Protein 8.3 H Albumin 3.4 Globulin 4.9 H Albumin/Globulin Ratio 0.7 L Lipase 132 Radiography Diagnostic Testing: Radiology Impression Abdomen/Pelvis CT 03/21/21 01:10 IMPRESSION: Cirrhotic appearance of the liver. Mild to moderate volume ascites fluid throughout the abdomen and pelvis. Likely cholelithiasis however, no evidence of acute cholecystitis. Evidence of bowel obstruction. Exophytic left renal cyst. Electronically Signed: Rene Rutledge DO at 2:00 EDT Tel , Service support , EKG Initial EKG: Comments: Sinus rhythm with a ventricular rate of [address] changes Discharge Plan Dx/Rx/DC Orders Clinical Impression: Abdominal pain, Acidosis, lactic, Atrial tachycardia Disposition Disposition: Acute Care Hospital [facility]
[2021-03-21] MEDS: 0.9% Normal Saline 1,000 ML 125 ML IV ×2 (02:23→07:09)
[2021-03-21 02:26] LABS: Absolute Lymphocyte Count 1.35 X10^3/uL (0.83-4.51); Absolute Neutrophil Count 5.9 X10^3/uL (2.0-7.7); Basophil# 0.03 X10^3/uL; Basophil% 0.4 % (0-1); Eosinophil# 0.07 X10^3/uL; Eosinophils% 0.9 % (0-5); Hematocrit 38.1 % (37-47); Hemoglobin 11.6 g/dL (12.0-15.0); Lymphocyte # 1.35 X10^3/ul (0.83-4.51); Lymphocyte % 16.7 % (19-41); Mean Corp Hgb Conc 30.4 g/dL (32-36); Mean Corpuscular Hgb 24.1 pg (27.0-32.0); Mean Corpuscular Volume 79.2 fL (81-99); Mean Platelet Vol. 11.4 fl (6.2-12.0); Monocyte# 0.74 X10^3/uL; Monocyte% 9.1 % (0-10); NRBC Flagged by Analyzer 0 % (0-5); Neutrophil # 5.88 X10^3/uL (2.7-7.7); Neutrophil % 72.7 % (47-70); POSITIVE COUNT YES; Platelet Count 93 K/mm3 (150-450); RBC Distribution Width CV 16.6 % (11.6-14.6); RBC Distribution Width SD 48.2 fl (35.1-43.9); Red Blood Count 4.81 M/mm3 (4.2-5.4); White Blood Count 8.1 K/mm3 (4.4-11.0)
[2021-03-21 02:30] LABS: Differential Indicated SCAN CRITERIA MET
[2021-03-21 02:43] LABS: ALB/GLOB Ratio 0.7 RATIO (0.9-2.4); AST(SGOT) 54 U/L (15-37); Alanine Aminotransfer ALT/SGPT 41 U/L (13-56); Albumin, Serum 3.4 g/dL (3.2-5.0); Alkaline Phosphatase 168 U/L (45-117); Anion Gap 7 (5-15); BUN 8 mg/dL (7-18); BUN/Creat Ratio 10.7 RATIO (10-20); Calcium,Total 9.7 mg/dL (8.5-10.1); Chloride 98 mmol/L (98-107); Creatinine, Serum 0.75 mg/dL (0.55-1.02); EST Glomerular Filtration Rate 82 mL/min (>60); Est Glom Filt Rate - Afr Amer 100 mL/min (>60); Estimated Creatinine Clearance 39.21 ml/min; Globulin 4.9 g/dL (2.2-4.2); Glucose 243 mg/dL (74-106); Lipase 132 U/L (73-393); Potassium 3.4 mmol/L (3.5-5.1); Protein, Total 8.3 g/dL (6.4-8.2); Sodium Level 135 mmol/L (136-145)
[2021-03-21 03:00] LABS: Lactic Acid 2.4 mmol/L (0.4-1.9); Platelet Estimate SLT DEC (ADEQ)
--- NOTE | 2021-03-21 04:25 | HP.PCM_ITS ---
HPI - General General Date of Admission: 03/21/21 HPI Narrative NOLVIA SMITH, is a 65 F who presents to the emergency room with abdominal pain and severe belching that has progressively gotten worse over the past 2 weeks. The patient has a history of being in hospice care for her severe COPD but according to ER physician has revoked that for her current work-up today. The patient states she does have some lower abdominal pain but has been able to pass gas and stool within the past 24 hours. She does admit to decreased appetite. She states she takes Mylanta and Gas-X frequently for this severe belching but it has had little effect in the last few days. Laboratory studies are unremarkable. CT scan of the abdomen shows cholelithiasis however no cholecystitis, and in review of the CT scan with the ER physician we both concur that there is no bowel obstruction despite what we think is a typo on the radiology report stating there is an obstruction. (ER physician was getting this clarified) she has had a recent EGD by Dr. Bergeron in [place] and was reported as normal. She will be admitted for observation to the general medical floor for IV hydration, PPI and symptom control. [facility] Medical History (Updated 03/21/21 @ 03:[address] Sasha Zayas, DO) Anxiety and depression Arthritis Asthma Back problem Benign essential HTN Breast lump Bronchitis Chronic obstructive pulmonary disease with acute exacerbation Furuncle of axilla Furuncle of groin GERD (gastroesophageal reflux disease) Hearing problem History of recurrent infection History of recurrent UTI (urinary tract infection) Hypoxemia IBS (irritable bowel syndrome) Mixed hyperlipidemia Nonalcoholic fatty liver disease Rib fracture Right sided sciatica Seasonal allergies Skin cancer Type 2 diabetes mellitus Vision problems Vitamin deficiency Home Medications fluoxetine 20 mg capsule 60 mg PO DAILY cap 08/22/18 [History Last Taken 09/03/18] furosemide 20 mg tablet 20 mg PO DAILY PRN 08/22/18 [History Last Taken Unknown] glimepiride 2 mg tablet 2 mg PO QAM 08/22/18 [History Last Taken 09/03/18] ipratropium bromide 0.02 % solution for inhalation 2.5 ml INHALATION Q6H 08/22/18 [History Last Taken 09/03/18] lisinopril 20 mg-hydrochlorothiazide 25 mg tablet 1 tab PO DAILY 08/22/18 [History Last Taken 09/03/18] montelukast 10 mg tablet 10 mg PO QPM 08/22/18 [History Last Taken 09/02/18] omeprazole 40 mg capsule,delayed release 40 mg PO DAILY 08/22/18 [History Last Taken 09/03/18] pravastatin 40 mg tablet 40 mg PO DAILY 08/22/18 [History Last Taken 09/02/18] trazodone 150 mg tablet 150 mg PO DAILY 08/22/18 [History Last Taken 09/02/18] hydroxyzine HCl 25 mg PO PRN PRN 09/03/18 [History Last Taken 09/03/18] insulin NPH isoph U-100 human 60 unit SQ BREAKFAST 09/03/18 [History Last Taken 09/03/18] insulin NPH isoph U-100 human 60 unit SQ DINNER #0 09/05/18 [Rx Last Taken 09/02/18] insulin regular human See Protocol SUBCUT ACHS #0 09/05/18 [Rx Last Taken 09/01/18] albuterol sulfate 2.5 mg INHALATION Q4H PRN #180 ml 08/27/19 [Rx Last Taken Unknown] alprazolam 0.25 mg tablet 0.25 mg PO DAILY PRN 08/27/19 [History Last Taken Unknown] baclofen 5 mg tablet 5 mg PO DAILY PRN 08/27/19 [History Last Taken Unknown] budesonide 0.5 mg/2 mL suspension for nebulization 2 ml INHALATION BID #60 vial 08/27/19 [Rx Last Taken Unknown] ipratropium 0.5 mg-albuterol 3 mg (2.5 mg base)/3 mL nebulization soln 3 ml INHALATION Q6H #180 vial 08/27/19 [Rx Last Taken Unknown] metoprolol succinate 50 mg tablet,extended release 24 hr 100 mg PO DAILY tab 08/27/19 [History Last Taken Unknown] potassium chloride 8 mEq capsule,extended release 8 meq PO DAILY 08/27/19 [History Last Taken Unknown] albuterol sulfate 90 mcg/actuation aerosol inhaler 1 - 2 puff INHALATION Q4H PRN PRN #1 device 11/03/19 [Rx Last Taken Unknown] fluticasone fur. 100 mcg-umeclid 62.5 mcg-vilant 25 mcg inhalat.powder 1 inh INHALATION QDAY #60 ea 01/28/20 [Rx Last Taken Unknown] Allergy/AdvReac Type Severity Reaction Status Date / Time Sulfa (Sulfonamide Allergy Mild Hives Verified 03/21/21 00:41 Antibiotics) latex Allergy Rash Verified 03/21/21 00:41 ciprofloxacin AdvReac Mild Nausea/Vom/ Verified 03/21/21 00:41 Diarrhea Family History (Reviewed 12/30/19 @ 08:20 by Sara Rubin RESOURCE MANAGEMENT SPECIALIST, RESOURCE MANAGEMENT SPECIALIST-C) Daughter Anemia Anxiety Asthma Depression (emotion) Mother Anxiety Arthritis Depression (emotion) Diabetes Grandmother Diabetes Grandfather Diabetes Surgical History History of appendectomy History of section History of hysterectomy Tubal infertility in female Social History (Updated 12/30/19 @ 08:42 by Sara Rubin RESOURCE MANAGEMENT SPECIALIST, RESOURCE MANAGEMENT SPECIALIST-C) Smoking Status: Former smoker how long ago did patient quit smokin, 2ppd second hand exposure: Yes alcohol intake: never substance use type: does not use additional social history: DOES NOT USE ASPIRIN DOES NOT USE IBUPROFEN ROS Constitutional Constitutional: Denies chills or fever(s) Eyes Eyes: Denies blurry vision ENT HEENT: Denies abnormal hearing Cardiovascular Cardiovascular: Denies chest pain Respiratory/Chest Respiratory/Chest: Denies shortness of breath at rest Gastrointestinal Gastrointestinal: Reports abdominal pain and dyspepsia Genitourinary Genitourinary: Denies dysuria Musculoskeletal Musculoskeletal: Denies back pain Integumentary Integumentary: Denies dry skin Neurologic Neurologic: Denies abnormal gait Psychiatric Psychiatric: Denies anxiety Vital Signs Vital Signs Vital Signs: 03/21/21 00:37 Temperature 99.1 F Temperature Source Oral Pulse Rate 130 H Blood Pressure 159/90 H Blood Pressure Mean 113 Pulse Ox 94 Oxygen Delivery Method Nasal Cannula Oxygen Flow Rate (L/min) 3 Weight Weight: 231 lb 11.293 oz Body Mass Index (BMI) 45.2 Physical Exam Const oriented x3 General Appearance: cooperative HEENT normocephalic and head/scalp atraumatic Eyes PERRL Neck supple Lymph Lymphatic: no lymphadenopathy noted Resp clear to auscultation bilaterally Cardio regular rate, regular rhythm, S1 normal heart sound and S2 normal heart sound GI Inspection: abdominal distention Auscultation: hypoactive bowel sounds Palpation: tender LLQ and RLQ; Negative for guarding Extremity normal capillary refill Skin Lesions: no lesions Rashes: no rashes Neuro CN's II-XII intact bilaterally Psych affect normal Lab / Micro Data Result Diagrams: 03/21/21 02:15 03/21/21 02:15 Labs: Laboratory Results - last 24 hr 03/21/21 03/21/21 03/21/21 01:25 01:25 01:25 WBC Cancelled Corrected WBC Cancelled RBC Cancelled Hgb Cancelled Hct Cancelled MCV Cancelled MCH Cancelled MCHC Cancelled RDW Std Deviation Cancelled RDW Coeff of Clayton Cancelled Plt Count Cancelled MPV Cancelled Immature Gran % (Auto) Cancelled Neut % (Auto) Cancelled Lymph % (Auto) Cancelled [place] % (Auto) Cancelled Eos % (Auto) Cancelled Baso % (Auto) Cancelled Absolute Neuts (auto) Cancelled Absolute Lymphs (auto) Cancelled Total Counted Cancelled Neutrophils % (Manual) Cancelled Band Neutrophils % Cancelled Lymphocytes % (Manual) Cancelled Monocytes % (Manual) Cancelled Eosinophils % (Manual) Cancelled Basophils % (Manual) Cancelled Metamyelocytes % Cancelled Myelocytes % Cancelled Promyelocytes % Cancelled Blast Cells % Cancelled Plasma Cell % (Manual) Cancelled Other Cells % Cancelled Nucleated RBC % Cancelled Nucleated RBCs/100 WBC Cancelled Differential Comment Cancelled Diff Path Review Cancelled Hypersegmented Neuts Cancelled Atypical Lymphocytes Cancelled Reactive Lymphocytes Cancelled Smudge Cells Cancelled Toxic Granulation Cancelled Toxic Vacuolation Cancelled Dohle Bodies Cancelled Sonia Rods Cancelled Platelet Estimate Cancelled Plt Morphology Comment Cancelled RBC Morphology Cancelled Polychromasia Cancelled Hypochromasia Cancelled Poikilocytosis Cancelled Basophilic Stippling Cancelled Anisocytosis Cancelled Microcytosis Cancelled Macrocytosis Cancelled Spherocytes Cancelled Sickle Cells Cancelled Target Cells Cancelled Tear Drop Cells Cancelled Ovalocytes Cancelled Stomatocytes Cancelled Kerns-Wilson Bodies Cancelled Suzan Cells Cancelled Bite Cells Cancelled Crenated Cell Cancelled Acanthocytes (Spur) Cancelled Rouleaux Cancelled Schistocytes Cancelled Sodium Cancelled Potassium Cancelled Chloride Cancelled Carbon Dioxide Cancelled Anion Gap Cancelled BUN Cancelled Creatinine Cancelled Estim Creat Clear Calc Cancelled Est GFR (MDRD) Af Amer Cancelled Est GFR (MDRD) Non-Af Cancelled BUN/Creatinine Ratio Cancelled Glucose Cancelled Lactic Acid Cancelled Calcium Cancelled Total Bilirubin Cancelled AST Cancelled ALT Cancelled Alkaline Phosphatase Cancelled Troponin I Cancelled Total Protein Cancelled Albumin Cancelled Globulin Cancelled Albumin/Globulin Ratio Cancelled Lipase Cancelled 03/21/21 03/21/21 03/21/21 02:15 02:15 02:15 WBC 8.1 Corrected WBC RBC 4.81 Hgb 11.6 L Hct 38.1 MCV 79.2 L MCH 24.1 L MCHC 30.4 L RDW Std Deviation 48.2 H RDW Coeff of [place] 16.6 H Plt Count 93 L MPV 11.4 Immature Gran % (Auto) 0.200 Neut % (Auto) 72.7 H Lymph % (Auto) 16.7 L [place] % (Auto) 9.1 Eos % (Auto) 0.9 Baso % (Auto) 0.4 Absolute Neuts (auto) 5.9 Absolute Lymphs (auto) 1.35 Total Counted Neutrophils % (Manual) Band Neutrophils % Lymphocytes % (Manual) Monocytes % (Manual) Eosinophils % (Manual) Basophils % (Manual) Metamyelocytes % Myelocytes % Promyelocytes % Blast Cells % Plasma Cell % (Manual) Other Cells % Nucleated RBC % 0 Nucleated RBCs/100 WBC Differential Comment Diff Path Review Hypersegmented Neuts Atypical Lymphocytes Reactive Lymphocytes Smudge Cells Toxic Granulation Toxic Vacuolation Dohle Bodies Sonia Rods Platelet Estimate SLT DEC Plt Morphology Comment RBC Morphology Polychromasia Hypochromasia Poikilocytosis Basophilic Stippling Anisocytosis Microcytosis Macrocytosis Spherocytes Sickle Cells Target Cells Tear Drop Cells Ovalocytes Stomatocytes Kerns-Wilson Bodies Suzan Cells Bite Cells Crenated Cell Acanthocytes (Spur) Rouleaux Schistocytes Sodium 135 L Potassium 3.4 L Chloride 98 Carbon Dioxide 30.0 Anion Gap 7 BUN 8 Creatinine 0.75 Estim Creat Clear Calc 39.21 Est GFR (MDRD) Af Amer 100 Est GFR (MDRD) Non-Af 82 BUN/Creatinine Ratio 10.7 Glucose 243 H Lactic Acid 2.4 H* Calcium 9.7 Total Bilirubin 0.70 AST 54 H ALT 41 Alkaline Phosphatase 168 H Troponin I 0.021 Total Protein 8.3 H Albumin 3.4 Globulin 4.9 H Albumin/Globulin Ratio 0.7 L Lipase 132 Radiology Impression Abdomen/Pelvis CT 03/21/21 01:10 IMPRESSION: Cirrhotic appearance of the liver. Mild to moderate volume ascites fluid throughout the abdomen and pelvis. Likely cholelithiasis however, no evidence of acute cholecystitis. Evidence of bowel obstruction. Exophytic left renal cyst. Electronically Signed: Rene PatDO mahendra at 2:00 EDT Tel , Service support , Assessment & Plan Assessment/Plan (1) Abdominal pain: (2) Acidosis, lactic: (3) Atrial tachycardia: (4) Smoking greater than 30 pack years: (5) Type 2 diabetes mellitus: (6) Benign essential HTN: (7) Mixed hyperlipidemia: (8) Chronic obstructive pulmonary disease with acute exacerbation: PLAN: 1. Abdominal pain with severe belching?admit patient to general medical floor for observation, Protonix IV 40 mg every 12 hours, morphine as needed pain and IV hydration with normal saline at 125 cc/h 2. Elevated lactate?repeat lactic acid in a.m. 3. Atrial tachycardia?continue to monitor on telemetry 4. Diabetes?continue home medications 5. Hypertension?continue routine home medications 6. Hyperlipidemia?continue statin medication 7. COPD?patient has reportedly been on hospice care for this 8. DVT prophylaxis?low molecular weight heparin Visit Charges OBSV E&M: 52303 Initial observation care L1
[2021-03-21 06:22] LABS: Reflex Lactate? Y
[2021-03-21] MEDS: 0.9% Saline Lock 10 ML Syringe IV (07:11)
[2021-03-21] MEDS: ALPRAZolam 0.25 MG Tablet PO (07:15)
[2021-03-21] MEDS: Ipratropium/Albuterol Sulfate 3 ML AMPUL.NEB INHALATION (07:15)
[2021-03-21] MEDS: Budesonide Respules 0.5 MG/2 ML AMPUL.NEB. INHALATION ×2 (07:18→11:00)
[2021-03-21 07:24] LABS: Lactic Acid 2.5 mmol/L (0.4-1.9)
[2021-03-21] MEDS: Potassium Chloride Oral Tablet 10 MEQ PO (08:03)
[2021-03-21] MEDS: Glimepiride 2 MG Tablet PO (08:03)
[2021-03-21] MEDS: FLUoxetine 20 MG Capsule 60 MG PO (10:15)
[2021-03-21] MEDS: Metoprolol(XL)Succ 100 MG Tablet PO (10:15)
--- NOTE | 2021-03-21 11:00 | CPS ---
At home, pt is on an auto-AVAPS machine most of her day with the following parameters EPAP [id number], min/max 10/25, RR 12-20, TV 275-400 with 3lpm O2 bleed-in. Pt was placed on AVAPS on settings w/in these parameters because [facility] doesn't have an auto adjusting machine nor do we carry nasal prongs like patient has at home.
--- NOTE | 2021-03-21 11:08 | CASEMGMT ---
Social Work Note SW received update that pt is active with [facility] ([phone]). SW placed a call to [facility] and updated staff on pt's admission to [facility]. [facility] asked to be updated when pt is discharged and for discharge paperwork to be faxed when completed to [phone]). Louann Olivares GREEN MEAT PACKER, CUSTOMS EXAMINER
--- NOTE | 2021-03-21 11:40 | PCM.DC ---
Discharge Instructions Diet Discharge Diet: No restrictions and - (Avoid carbonated beverages) Activity Discharge Activity: Return to Normal Activity Follow Up Care Test Results: Test results from this visit will be discussed in further detail at your follow-up appointment, if applicable. Discharge Plan Admission Admit Date/Time: 03/21/21 04:44 Primary Reason for Your Visit: Persistent belching Attending Provider: Celina Jeffers Primary Care Provider: Carlos Snyder ARCHITECTURE TECHNICIAN Instructions Additional Instructions / Restrictions: Follow-up with hospice at discharge as previously established. Discharge Orders/Prescriptions Prescriptions: New simethicone 125 mg tablet,chewable 125 mg PO TID PRN (Reason: abdominal distention) Qty: 30 RF: 0 baclofen 5 mg tablet 5 mg PO BID PRN (Reason: belching) Qty: 20 RF: 0 Continued furosemide [Lasix] 20 mg tablet 40 mg PO DAILY PRN (Reason: Swelling) RF: 0 omeprazole 40 mg capsule,delayed release(DR/EC) 40 mg PO DAILY RF: 0 pravastatin 40 mg tablet 40 mg PO DAILY RF: 0 montelukast [Singulair] 10 mg tablet 10 mg PO QPM RF: 0 trazodone 150 mg tablet 150 mg PO DAILY RF: 0 lisinopril-hydrochlorothiazide 20-25 mg tablet 1 tab PO DAILY RF: 0 potassium chloride 8 mEq capsule, extended release 8 meq PO DAILY RF: 0 alprazolam 0.25 mg tablet 0.25 mg PO DAILY PRN (Reason: Anxiety) RF: 0 ipratropium-albuterol 0.5 mg-3 mg(2.5 mg base)/3 mL solution for nebulization 3 ml INHALATION Q6H Qty: 180 RF: 3 hydroxyzine HCl 25 MG tablet 25 mg PO TID PRN PRN (Reason: Anxiety) RF: 0 metoprolol succinate 50 mg tablet extended release 24 hr 50 mg PO DAILY RF: 0 buspirone 15 mg Tablet 15 mg PO BID RF: 0 venlafaxine 75 mg Tablet Extended Release 24hr 75 mg PO DAILY RF: 0 Humulin 70/30 U-100 Insulin 100 unit/mL (70-30) suspension 110 unit SUBCUT BREAKFAST RF: 0 Humulin 70/30 U-100 Insulin 100 unit/mL (70-30) suspension 95 unit SUBCUT QHS RF: 0 cefadroxil 500 mg capsule 500 mg PO BID RF: 0 Trelegy Ellipta 100-62.5-25 mcg blister with device 1 inh INHALATION QDAY Qty: 60 RF: 3 Referrals / Follow Up: Neville Kent MD [STAFF PHYSICIAN] - In 1 Week Carlos Snyder NP, ARCHITECTURE TECHNICIAN-C [Primary Care Provider] - In 1 Week Disposition Disposition (needs filled in before D/C Order can be placed): Hospice in Home
[2021-03-21] MEDS: Potassium Chloride Oral Tablet 20 MEQ PO (12:44)
--- NOTE | 2021-03-21 13:36 | CASEMGMT ---
Addendum entered by Louann Olivares 03/21/21 13:39: SW updated pt that [facility] has been updated and they will be sending an RN out tonight to see pt. Pt states understanding. Original Note: Social Work Note SW updated that pt will be leaving soon. SW placed a call to [facility] and updated staff that pt is being discharged home. SW faxed dishcarge paperwork and H+P to [facility] per their request. Plan: Home with resumption of [facility] Services Louann Olivares DIETITIAN THERAPEUTIC, SKIN CARE CONSULTANT
--- NOTE | 2021-03-21 13:42 | PCM.DC.SUM ---
Documented by User: Mohini oGnzalez NP, TAX ACCOUNTING MANAGER-C 03/21/21 13:55 Providers Date of Admission: 03/21/21 Date of Discharge: 03/21/21 Primary Care Physician: AMY Hassan Reason For Visit: abd pain Diagnosis Discharge Diagnosis (1) Abdominal pain: Status: Acute Code(s): R10.9 - Unspecified abdominal pain (2) Acidosis, lactic: Status: Acute Code(s): E87.2 - Acidosis (3) Atrial tachycardia: Status: Acute Code(s): I47.1 - Supraventricular tachycardia (4) Smoking greater than 30 pack years: Status: Acute Code(s): F17.210 - Nicotine dependence, cigarettes, uncomplicated (5) Type 2 diabetes mellitus: Status: Chronic Code(s): E11.9 - Type 2 diabetes mellitus without complications (6) Benign essential HTN: Status: Chronic Code(s): I10 - Essential (primary) hypertension (7) Mixed hyperlipidemia: Status: Chronic Code(s): E78.2 - Mixed hyperlipidemia (8) Chronic obstructive pulmonary disease with acute exacerbation: Status: Acute Code(s): J44.1 - Chronic obstructive pulmonary disease with (acute) exacerbation Medications at Discharge Home Medications furosemide 20 mg tablet 40 mg PO DAILY PRN 08/22/18 lisinopril 20 mg-hydrochlorothiazide 25 mg tablet 1 tab PO DAILY 08/22/18 montelukast 10 mg tablet 10 mg PO QPM 08/22/18 omeprazole 40 mg capsule,delayed release 40 mg PO DAILY 08/22/18 pravastatin 40 mg tablet 40 mg PO DAILY 08/22/18 trazodone 150 mg tablet 150 mg PO DAILY 08/22/18 hydroxyzine HCl 25 mg PO TID PRN PRN 09/03/18 alprazolam 0.25 mg tablet 0.25 mg PO DAILY PRN 08/27/19 ipratropium 0.5 mg-albuterol 3 mg (2.5 mg base)/3 mL nebulization soln 3 ml INHALATION Q6H #180 vial 08/27/19 metoprolol succinate 50 mg tablet,extended release 24 hr 50 mg PO DAILY tab 08/27/19 potassium chloride 8 mEq capsule,extended release 8 meq PO DAILY 08/27/19 fluticasone fur. 100 mcg-umeclid 62.5 mcg-vilant 25 mcg inhalat.powder 1 inh INHALATION QDAY #60 ea 01/28/20 Humulin 70/30 U-100 Insulin 95 unit SUBCUT QHS 03/21/21 Humulin 70/30 U-100 Insulin 110 unit SUBCUT BREAKFAST 03/21/21 baclofen 5 mg PO BID PRN #20 tab 03/21/21 buspirone 15 mg PO BID 03/21/21 cefadroxil 500 mg PO BID 03/21/21 simethicone 125 mg PO TID PRN #30 tab 03/21/21 venlafaxine 75 mg PO DAILY 03/21/21 Hospital Course Operations None Procedures None Summary of Care Provided Minutes Spent on Discharge: 35 Hospital Course: Patient is a 65-year-old female admitted 03/21/2021 due to severe belching. 1. Severe belching, abdominal bloating-CT shows cirrhotic appearance of liver, mild to moderate ascites volume. Likely cholelithiasis without cholecystitis. No evidence of bowel obstruction. Patient reports she wears BiPAP most of the day and night and suspect persistent/frequent belching is related to trapped air in the stomach related to pressure from BiPAP. Recommend following up with primary card checker, Dr. Kent to see if settings can be adjusted. Additionally discharged on as needed simethicone and as needed baclofen. Continue follow-up with hospice who may be able to assist with symptom management as well. 2. Lactic acidosis-no evidence of active infection. 3. Severe COPD- following under hospice. Sees Dr. Kent as well. 4. Type 2 diabetes mellitus-continue home insulin regimen 5. Hypertension-stable, continue current regimen 6. Hyperlipidemia-continue statin. 7. Atrial tachycardia-stable, continue metoprolol. 8. Depression/anxiety-continue home venlafaxine, buspirone, as needed Xanax. Patient seen and examined prior to discharge. Physical assessment as noted below. Patient is stable for discharge with follow up recommendations as noted above. This patient was seen by AMY Woods under the supervision of Dr. Jeffers. Physical Exam Const alert, oriented x3 and no apparent distress Orientation / Consciousness: awake, oriented to person, oriented to place and oriented to time HEENT normocephalic and moist oral mucous membranes Eyes PERRL, EOMs intact bilaterally and conjunctivae normal Neck no lymphadenopathy Resp clear to auscultation bilaterally Auscultation: diminished lung sounds Cardio regular rate, regular rhythm and no murmurs Peripheral Pulses: pulses 2+ throughout GI normal to inspection, nondistended, normoactive bowel sounds and non-tender Inspection: central obesity Palpation: other Other Details: Distended Extremity normal to inspection Skin no rashes or lesions noted Lesions: no lesions Rashes: no rashes Trauma: no lacerations or abrasions Neuro CN's II-XII intact bilaterally, no focal motor deficits, no sensory deficits noted and deep tendon reflexes 2+ bilaterally Psych mental status grossly normal and affect normal ABG / Lab / Microbiology Data Result Diagrams: 03/21/21 02:15 03/21/21 02:15 Laboratory: Laboratory Results - last 24 hr 03/21/21 03/21/21 03/21/21 01:25 01:25 01:25 WBC Cancelled Corrected WBC Cancelled RBC Cancelled Hgb Cancelled Hct Cancelled MCV Cancelled MCH Cancelled MCHC Cancelled RDW Std Deviation Cancelled RDW Coeff of [place] Cancelled Plt Count Cancelled MPV Cancelled Immature Gran % (Auto) Cancelled Neut % (Auto) Cancelled Lymph % (Auto) Cancelled [place] % (Auto) Cancelled Eos % (Auto) Cancelled Baso % (Auto) Cancelled Absolute Neuts (auto) Cancelled Absolute Lymphs (auto) Cancelled Total Counted Cancelled Neutrophils % (Manual) Cancelled Band Neutrophils % Cancelled Lymphocytes % (Manual) Cancelled Monocytes % (Manual) Cancelled Eosinophils % (Manual) Cancelled Basophils % (Manual) Cancelled Metamyelocytes % Cancelled Myelocytes % Cancelled Promyelocytes % Cancelled Blast Cells % Cancelled Plasma Cell % (Manual) Cancelled Other Cells % Cancelled Nucleated RBC % Cancelled Nucleated RBCs/100 WBC Cancelled Differential Comment Cancelled Diff Path Review Cancelled Hypersegmented Neuts Cancelled Atypical Lymphocytes Cancelled Reactive Lymphocytes Cancelled Smudge Cells Cancelled Toxic Granulation Cancelled Toxic Vacuolation Cancelled Dohle Bodies Cancelled Sonia Rods Cancelled Platelet Estimate Cancelled Plt Morphology Comment Cancelled RBC Morphology Cancelled Polychromasia Cancelled Hypochromasia Cancelled Poikilocytosis Cancelled Basophilic Stippling Cancelled Anisocytosis Cancelled Microcytosis Cancelled Macrocytosis Cancelled Spherocytes Cancelled Sickle Cells Cancelled Target Cells Cancelled Tear Drop Cells Cancelled Ovalocytes Cancelled Stomatocytes Cancelled [place] Bodies Cancelled [place] Cells Cancelled Bite Cells Cancelled Crenated Cell Cancelled Acanthocytes (Spur) Cancelled Rouleaux Cancelled Schistocytes Cancelled Sodium Cancelled Potassium Cancelled Chloride Cancelled Carbon Dioxide Cancelled Anion Gap Cancelled BUN Cancelled Creatinine Cancelled Estim Creat Clear Calc Cancelled Est GFR (MDRD) Af Amer Cancelled Est GFR (MDRD) Non-Af Cancelled BUN/Creatinine Ratio Cancelled Glucose Cancelled Lactic Acid Cancelled Calcium Cancelled Total Bilirubin Cancelled AST Cancelled ALT Cancelled Alkaline Phosphatase Cancelled Troponin I Cancelled Total Protein Cancelled Albumin Cancelled Globulin Cancelled Albumin/Globulin Ratio Cancelled Lipase Cancelled 03/21/21 03/21/21 03/21/21 02:15 02:15 02:15 WBC 8.1 Corrected WBC RBC 4.81 Hgb 11.6 L Hct 38.1 MCV 79.2 L MCH 24.1 L MCHC 30.4 L RDW Std Deviation 48.2 H RDW Coeff of [place] 16.6 H Plt Count 93 L MPV 11.4 Immature Gran % (Auto) 0.200 Neut % (Auto) 72.7 H Lymph % (Auto) 16.7 L Garvin % (Auto) 9.1 Eos % (Auto) 0.9 Baso % (Auto) 0.4 Absolute Neuts (auto) 5.9 Absolute Lymphs (auto) 1.35 Total Counted Neutrophils % (Manual) Band Neutrophils % Lymphocytes % (Manual) Monocytes % (Manual) Eosinophils % (Manual) Basophils % (Manual) Metamyelocytes % Myelocytes % Promyelocytes % Blast Cells % Plasma Cell % (Manual) Other Cells % Nucleated RBC % 0 Nucleated RBCs/100 WBC Differential Comment Diff Path Review Hypersegmented Neuts Atypical Lymphocytes Reactive Lymphocytes Smudge Cells Toxic Granulation Toxic Vacuolation Dohle Bodies Sonia Rods Platelet Estimate SLT DEC Plt Morphology Comment RBC Morphology Polychromasia Hypochromasia Poikilocytosis Basophilic Stippling Anisocytosis Microcytosis Macrocytosis Spherocytes Sickle Cells Target Cells Tear Drop Cells Ovalocytes Stomatocytes [place] Bodies [place] Cells Bite Cells Crenated Cell Acanthocytes (Spur) Rouleaux Schistocytes Sodium 135 L Potassium 3.4 L Chloride 98 Carbon Dioxide 30.0 Anion Gap 7 BUN 8 Creatinine 0.75 Estim Creat Clear Calc 39.21 Est GFR (MDRD) Af Amer 100 Est GFR (MDRD) Non-Af 82 BUN/Creatinine Ratio 10.7 Glucose 243 H Lactic Acid 2.4 H* Calcium 9.7 Total Bilirubin 0.70 AST 54 H ALT 41 Alkaline Phosphatase 168 H Troponin I 0.021 Total Protein 8.3 H Albumin 3.4 Globulin 4.9 H Albumin/Globulin Ratio 0.7 L Lipase 132 03/21/21 06:46 WBC Corrected WBC RBC Hgb Hct MCV MCH MCHC RDW Std Deviation RDW Coeff of [place] Plt Count MPV Immature Gran % (Auto) Neut % (Auto) Lymph % (Auto) [place] % (Auto) Eos % (Auto) Baso % (Auto) Absolute Neuts (auto) Absolute Lymphs (auto) Total Counted Neutrophils % (Manual) Band Neutrophils % Lymphocytes % (Manual) Monocytes % (Manual) Eosinophils % (Manual) Basophils % (Manual) Metamyelocytes % Myelocytes % Promyelocytes % Blast Cells % Plasma Cell % (Manual) Other Cells % Nucleated RBC % Nucleated RBCs/100 WBC Differential Comment Diff Path Review Hypersegmented Neuts Atypical Lymphocytes Reactive Lymphocytes Smudge Cells Toxic Granulation Toxic Vacuolation Dohle Bodies Sonia Rods Platelet Estimate Plt Morphology Comment RBC Morphology Polychromasia Hypochromasia Poikilocytosis Basophilic Stippling Anisocytosis Microcytosis Macrocytosis Spherocytes Sickle Cells Target Cells Tear Drop Cells Ovalocytes Stomatocytes [place] Bodies [place] Cells Bite Cells Crenated Cell Acanthocytes (Spur) Rouleaux Schistocytes Sodium Potassium Chloride Carbon Dioxide Anion Gap BUN Creatinine Estim Creat Clear Calc Est GFR (MDRD) Af Amer Est GFR (MDRD) Non-Af BUN/Creatinine Ratio Glucose Lactic Acid 2.5 H* Calcium Total Bilirubin AST ALT Alkaline Phosphatase Troponin I Total Protein Albumin Globulin Albumin/Globulin Ratio Lipase Radiography Diagnostic Testing: Radiology Impression Abdomen/Pelvis CT 03/21/21 01:10 IMPRESSION: Cirrhotic appearance of the liver. Mild to moderate volume ascites fluid throughout the abdomen and pelvis. Likely cholelithiasis however, no evidence of acute cholecystitis. Evidence of bowel obstruction. Exophytic left renal cyst. Electronically Signed: Rene Rutledge DO at 2:00 EDT Tel , Service support , ADDENDUM: 03/21/21 0434 D/C Instructions Discharge Diet: No restrictions and - (Avoid carbonated beverages) Discharge Activity: Return to Normal Activity Meaningful Use Info Meaningful Use Diagnoses (Choose all that apply): None applicable Discharge Plan Admission Admit Date/Time: 03/21/21 04:44 Primary Reason for Your Visit: Persistent belching Attending Provider: Celina Jeffers Primary Care Provider: Carlos Snyder TAX ACCOUNTING MANAGER Instructions Additional Instructions / Restrictions: Follow-up with hospice at discharge as previously established. Discharge Orders/Prescriptions Prescriptions: New simethicone 125 mg tablet,chewable 125 mg PO TID PRN (Reason: abdominal distention) Qty: 30 RF: 0 baclofen 5 mg tablet 5 mg PO BID PRN (Reason: belching) Qty: 20 RF: 0 Continued furosemide [Lasix] 20 mg tablet 40 mg PO DAILY PRN (Reason: Swelling) RF: 0 omeprazole 40 mg capsule,delayed release(DR/EC) 40 mg PO DAILY RF: 0 pravastatin 40 mg tablet 40 mg PO DAILY RF: 0 montelukast [Singulair] 10 mg tablet 10 mg PO QPM RF: 0 trazodone 150 mg tablet 150 mg PO DAILY RF: 0 lisinopril-hydrochlorothiazide 20-25 mg tablet 1 tab PO DAILY RF: 0 potassium chloride 8 mEq capsule, extended release 8 meq PO DAILY RF: 0 alprazolam 0.25 mg tablet 0.25 mg PO DAILY PRN (Reason: Anxiety) RF: 0 ipratropium-albuterol 0.5 mg-3 mg(2.5 mg base)/3 mL solution for nebulization 3 ml INHALATION Q6H Qty: 180 RF: 3 hydroxyzine HCl 25 MG tablet 25 mg PO TID PRN PRN (Reason: Anxiety) RF: 0 metoprolol succinate 50 mg tablet extended release 24 hr 50 mg PO DAILY RF: 0 buspirone 15 mg Tablet 15 mg PO BID RF: 0 venlafaxine 75 mg Tablet Extended Release 24hr 75 mg PO DAILY RF: 0 Humulin 70/30 U-100 Insulin 100 unit/mL (70-30) suspension 110 unit SUBCUT BREAKFAST RF: 0 Humulin 70/30 U-100 Insulin 100 unit/mL (70-30) suspension 95 unit SUBCUT QHS RF: 0 cefadroxil 500 mg capsule 500 mg PO BID RF: 0 Trelegy Ellipta 100-62.5-25 mcg blister with device 1 inh INHALATION QDAY Qty: 60 RF: 3 Referrals / Follow Up: Neville Kent MD [STAFF PHYSICIAN] - In 1 Week Carlos Snyder NP, TAX ACCOUNTING MANAGER-C [Primary Care Provider] - In 1 Week Disposition Disposition (needs filled in before D/C Order can be placed): Hospice in Home Documented by User: Dr. Celina Jeffers DO 03/21/21 15:26 Providers Date of Admission: 03/21/21 Reason For Visit: abd pain Medications at Discharge Home Medications furosemide 20 mg tablet 40 mg PO DAILY PRN 08/22/18 lisinopril 20 mg-hydrochlorothiazide 25 mg tablet 1 tab PO DAILY 08/22/18 montelukast 10 mg tablet 10 mg PO QPM 08/22/18 omeprazole 40 mg capsule,delayed release 40 mg PO DAILY 08/22/18 pravastatin 40 mg tablet 40 mg PO DAILY 08/22/18 trazodone 150 mg tablet 150 mg PO DAILY 08/22/18 hydroxyzine HCl 25 mg PO TID PRN PRN 09/03/18 alprazolam 0.25 mg tablet 0.25 mg PO DAILY PRN 08/27/19 ipratropium 0.5 mg-albuterol 3 mg (2.5 mg base)/3 mL nebulization soln 3 ml INHALATION Q6H #180 vial 08/27/19 metoprolol succinate 50 mg tablet,extended release 24 hr 50 mg PO DAILY tab 08/27/19 potassium chloride 8 mEq capsule,extended release 8 meq PO DAILY 08/27/19 fluticasone fur. 100 mcg-umeclid 62.5 mcg-vilant 25 mcg inhalat.powder 1 inh INHALATION QDAY #60 ea 01/28/20 Humulin 70/30 U-100 Insulin 95 unit SUBCUT QHS 03/21/21 Humulin 70/30 U-100 Insulin 110 unit SUBCUT BREAKFAST 03/21/21 baclofen 5 mg PO BID PRN #20 tab 03/21/21 buspirone 15 mg PO BID 03/21/21 cefadroxil 500 mg PO BID 03/21/21 simethicone 125 mg PO TID PRN #30 tab 03/21/21 venlafaxine 75 mg PO DAILY 03/21/21 Hospital Course Operations None Procedures None Summary of Care Provided Minutes Spent on Discharge: 22 Hospital Course: I agree with the above and the following is representation my independent history and physical examination. Ms. Coker is a 65-year-old female with end-stage COPD who is on hospice who presented to the emergency department early this morning complaining of abdominal pain and severe belching. She states that she has had an extensive history of this although the belching has been worse over the last 2 weeks. She has been able to eat on and off. She is passing flatus and having bowel movements without a problem. She has been using Mylanta and Gas-X frequently for her severe belching but has had little effect. A CT scan was done in the emergency department and showed cholelithiasis but no cholecystitis and cirrhosis but no signs of bowel obstructions or colonic issues. She had an EGD done in January by Dr. Bergeron in [place] and she reports that there was nothing remarkable on this study. She was admitted to the general medical floor for hydration and symptom control. Upon evaluation this morning the patient is still having issues with belching. She indicates that she wears her BiPAP pretty continuously during the day and her pressures are fairly high on her BiPAP. I suspect that her chronic issues with gas and belching are related to her fairly continuous BiPAP use on an outpatient basis and we recommend follow-up with Dr. Kent. The patient is anxious to be discharged home. We recommend follow-up with Dr. Kent for possible adjustment of her BiPAP and follow-up with her primary care physician within the week. Discharge diagnoses Belching Abdominal pain-resolved Lactic acidosis--> likely related to chronic hypoxemia Tachycardia-resolved DM-2 Hyperlipidemia Hypertension End-stage COPD Chronic hypoxic and hypercapnic respiratory failure Morbid obesity GERONIMO History of esophageal stricture GERD Depression Chronic low back pain Anxiety Vitamin D deficiency Irritable bowel syndrome Physical Exam Const alert and oriented x3 Constitutional Narrative: Morbidly obese white female sitting up on the edge of the bed on heated high flow nasal cannula, having fairly consistent belching, empty tray at the bedside from breakfast, appears much older than stated age General Appearance: cooperative HEENT normocephalic, head/scalp atraumatic and moist oral mucous membranes Eyes PERRL and EOMs intact bilaterally Neck supple Neck Narrative: Short thick neck, trachea midline Resp no retractions and no use of accessory muscles Resp Narrative: Markedly diminished Cardio regular rate, regular rhythm, S1 normal heart sound, S2 normal heart sound, no murmurs, no rub, no gallops, no clicks and no JVD GI GI Narrative: Morbidly obese, soft, positive bowel sounds-normoactive Extremity Extremity Narrative: No cyanosis General Extremity: edema Psych affect normal ABG / Lab / Microbiology Data Result Diagrams: 03/21/21 02:15 03/21/21 02:15 Discharge Plan Admission Admit Date/Time: 03/21/21 04:44 Primary Reason for Your Visit: Persistent belching Attending Provider: Celina Jeffers Primary Care Provider: Carlos Snyder TAX ACCOUNTING MANAGER Instructions Additional Instructions / Restrictions: Follow-up with hospice at discharge as previously established. Discharge Orders/Prescriptions Prescriptions: New simethicone 125 mg tablet,chewable 125 mg PO TID PRN (Reason: abdominal distention) Qty: 30 RF: 0 baclofen 5 mg tablet 5 mg PO BID PRN (Reason: belching) Qty: 20 RF: 0 Continued furosemide [Lasix] 20 mg tablet 40 mg PO DAILY PRN (Reason: Swelling) RF: 0 omeprazole 40 mg capsule,delayed release(DR/EC) 40 mg PO DAILY RF: 0 pravastatin 40 mg tablet 40 mg PO DAILY RF: 0 montelukast [Singulair] 10 mg tablet 10 mg PO QPM RF: 0 trazodone 150 mg tablet 150 mg PO DAILY RF: 0 lisinopril-hydrochlorothiazide 20-25 mg tablet 1 tab PO DAILY RF: 0 potassium chloride 8 mEq capsule, extended release 8 meq PO DAILY RF: 0 alprazolam 0.25 mg tablet 0.25 mg PO DAILY PRN (Reason: Anxiety) RF: 0 ipratropium-albuterol 0.5 mg-3 mg(2.5 mg base)/3 mL solution for nebulization 3 ml INHALATION Q6H Qty: 180 RF: 3 hydroxyzine HCl 25 MG tablet 25 mg PO TID PRN PRN (Reason: Anxiety) RF: 0 metoprolol succinate 50 mg tablet extended release 24 hr 50 mg PO DAILY RF: 0 buspirone 15 mg Tablet 15 mg PO BID RF: 0 venlafaxine 75 mg Tablet Extended Release 24hr 75 mg PO DAILY RF: 0 Humulin 70/30 U-100 Insulin 100 unit/mL (70-30) suspension 110 unit SUBCUT BREAKFAST RF: 0 Humulin 70/30 U-100 Insulin 100 unit/mL (70-30) suspension 95 unit SUBCUT QHS RF: 0 cefadroxil 500 mg capsule 500 mg PO BID RF: 0 Trelegy Ellipta 100-62.5-25 mcg blister with device 1 inh INHALATION QDAY Qty: 60 RF: 3 Referrals / Follow Up: Neville Kent MD [STAFF PHYSICIAN] - In 1 Week Carlos Snyder NP, TAX ACCOUNTING MANAGER-C [Primary Care Provider] - In 1 Week Disposition Disposition (needs filled in before D/C Order can be placed): Hospice in Home Visit Charges Inpatient E&M: 07733 Disch Hosp
== END 2021-03-21 13:45 | disposition hospice, home (50) ==
LOC: ED 03:45 → MS3 04:53
PROVIDERS: Admitting Provider Family Medicine; Emergency Provider Emergency Medicine; PCP Nurse Practitioner Family; Visit Provider Internal Medicine
DX: R10.9 Unspecified abdominal pain (principal); J44.1 Chronic obstructive pulmonary disease with (acute) exacerbation; J44.9 Chronic obstructive pulmonary disease, unspecified; I10 Essential (primary) hypertension; K21.9 Gastro-esophageal reflux disease without esophagitis; F41.9 Anxiety disorder, unspecified; K76.0 Fatty (change of) liver, not elsewhere classified; E78.2 Mixed hyperlipidemia; K58.9 Irritable bowel syndrome, unspecified; E11.9 Type 2 diabetes mellitus without complications; M19.90 Unspecified osteoarthritis, unspecified site; F32.9 Major depressive disorder, single episode, unspecified; E87.2 Acidosis; I47.1 Supraventricular tachycardia; J96.12 Chronic respiratory failure with hypercapnia; J96.11 Chronic respiratory failure with hypoxia; E66.01 Morbid (severe) obesity due to excess calories; G47.33 Obstructive sleep apnea (adult) (pediatric); Z79.899 Other long term (current) drug therapy; Z79.4 Long term (current) use of insulin; Z79.51 Long term (current) use of inhaled steroids; Z87.891 Personal history of nicotine dependence; Z68.41 Body mass index [BMI] 40.0-44.9, adult
CPT/HCPCS: 36415; 74176; 80053; 83605; 83690; 84484; 85025; 93005; 94002; 94640; 96361; 96365; 99218; 99285; J7030; A4216; G0378

== ENCOUNTER 2021-09-30 06:36 | Emergency (ER) | payer MEDICARE, SELFPAY ==
[2021-09-30] VITALS (7 sets, daily range): BP systolic 113–137; BP diastolic 60–90; PULSE 95–121; RESP 21–26; TEMP 36.6; O2SAT 91–95; BMI 52.3
--- NOTE | 2021-09-30 07:20 | EKG12_ITS ---
Test Reason : SOB Blood Pressure : / mmHG Vent. Rate : 093 BPM Atrial Rate : 093 BPM P-R Int : 152 ms QRS Dur : 096 ms QT Int : 400 ms P-R-T Axes : 043 -37 098 degrees QTc Int : 497 ms Sinus rhythm with Premature atrial complexes Left axis deviation Left ventricular hypertrophy with repolarization abnormality Prolonged QT Abnormal ECG Confirmed by DONNELL FIGUEROA, ROSALIND ([id number]), editorial director JUNG LINDSAY ([id number]) on 10/02/2021 10:09:18 AM Referred By: DAWSON Confirmed By:ROSALIND JACOBO MD
--- NOTE | 2021-09-30 07:24 | EDS_ITS ---
HPI History of Present Illness Chief Complaint: Shortness of Breath Informant: patient, spouse/S.O. and EMS Onset/Context/Timing Onset: Weeks (1.5) Context: gradual and onset Timing: Continuous Quality: Positive for - (hard to breathe) Current Severity: Moderate Maximum Severity: Severe Worsened by: Exertion, Lying flat and Coughing Relieved by: Albuterol (a little) Associated Symptoms cough and clear sputum Chest Pain: Positive for Intermittent and Burning (lower mid-chest - it may be my stomach or my cirrhosis) Narrative Narrative: Patient presents by EMS 7 AM due to progressively worsening dyspnea for the past 1.5 weeks including orthopnea that is worse than usual, and leg swelling. She has a history of COPD and is on 4 L nasal cannula 20/05 at baseline. She states she is coughing, occasional clear sputum, she does not know if she usually makes sputum when she is not acutely ill. She denies any fevers or chills. No known contact with anyone with Covid, she has not been vaccinated because she heard the vaccine contains sulfur and she is allergic to sulfa medications. She has had off-and-on chest pain, she does not have that now, she states it feels like burning like heartburn that is epigastric/lower chest and last for about an hour or so when it occurs. Her breathing has been improved by her breathing treatments some. She states she is having trouble getting around because of the swelling, heaviness, and pain in her legs. The pain is nonspecific in location. She states they just ache all over. She denies any numbness. They do not hurt to move, they just always hurt. In trying to determine what symptoms she has chronically versus acutely, it is very difficult. She provides answers to questions such as someone gave me something recently for diarrhea because I could not go. Also states I cannot lay down because of my legs. They hurt. However she indicates that she cannot lay down because she is too dyspneic and this is chronic. She thinks her legs have been swollen for 3 weeks, and states that they are not usually swollen but later states she is on Lasix twice a day because of her legs. She also states she has cirrhosis due to medications from the pharmacy and cannot elaborate any more. Patient states she has no known history of cardiac problems, although congestive heart failure is in her history in the EMR. Her last echocardiogram was 2017, showed an ejection fraction of 60% and stage I diastolic dysfunction. [facility] Medical History Anxiety Anxiety and depression Arthritis Asthma Back problem Benign essential HTN BiPAP (biphasic positive airway pressure) dependence Breast lump Bronchitis Chronic obstructive pulmonary disease with acute exacerbation Chronic pain Cirrhosis Congestive heart failure (CHF) Diabetes Former smoker Furuncle of axilla Furuncle of groin GERD (gastroesophageal reflux disease) Hearing problem History of recurrent infection History of recurrent UTI (urinary tract infection) Hypoxemia IBS (irritable bowel syndrome) Mixed hyperlipidemia Nonalcoholic fatty liver disease On home oxygen therapy Osteoporosis Rheumatoid arthritis Rib fracture Right sided sciatica Seasonal allergies Skin cancer Sleep apnea Type 2 diabetes mellitus Vision problems Vitamin deficiency Home Medications furosemide 20 mg tablet 40 mg PO DAILY PRN 08/22/18 [History Last Taken Unknown] lisinopril 20 mg-hydrochlorothiazide 25 mg tablet 1 tab PO DAILY 08/22/18 [History Last Taken 09/03/18] montelukast 10 mg tablet 10 mg PO QPM 08/22/18 [History Last Taken 09/02/18] omeprazole 40 mg capsule,delayed release 40 mg PO DAILY 08/22/18 [History Last Taken 09/03/18] pravastatin 40 mg tablet 40 mg PO DAILY 08/22/18 [History Last Taken 09/02/18] trazodone 150 mg tablet 150 mg PO DAILY 08/22/18 [History Last Taken 09/02/18] hydroxyzine HCl 25 mg PO TID PRN 09/03/18 [History Last Taken 09/03/18] alprazolam 0.25 mg tablet 0.25 mg PO DAILY PRN 08/27/19 [History Last Taken Unknown] ipratropium 0.5 mg-albuterol 3 mg (2.5 mg base)/3 mL nebulization soln 3 ml INHALATION Q6H #180 vial 08/27/19 [Rx Last Taken Unknown] metoprolol succinate 50 mg tablet,extended release 24 hr 50 mg PO DAILY tab 08/27/19 [History Last Taken Unknown] potassium chloride 8 mEq capsule,extended release 8 meq PO DAILY 08/27/19 [History Last Taken Unknown] fluticasone fur. 100 mcg-umeclid 62.5 mcg-vilant 25 mcg inhalat.powder 1 inh INHALATION QDAY #60 ea 01/28/20 [Rx Last Taken Unknown] Humulin 70/30 U-100 Insulin 95 unit SUBCUT QHS 03/21/21 [History Last Taken Unknown] Humulin 70/30 U-100 Insulin 110 unit SUBCUT BREAKFAST 03/21/21 [History Last Taken Unknown] baclofen 5 mg PO BID PRN #20 tab 03/21/21 [Rx Last Taken Unknown] buspirone 15 mg PO TID 03/21/21 [History Last Taken Unknown] cefadroxil 500 mg PO BID 03/21/21 [History Last Taken Unknown] simethicone 125 mg PO TID PRN #30 tab 03/21/21 [Rx Last Taken Unknown] venlafaxine 75 mg PO DAILY 03/21/21 [History Last Taken Unknown] lactulose 10 g PO TID 14 Days #630 ml 09/30/21 [Rx Last Taken Unknown] pantoprazole 40 mg PO DAILY 09/30/21 [History Last Taken Unknown] prednisone 40 mg PO DAILY #8 tablet 09/30/21 [Rx Last Taken Unknown] Allergy/AdvReac Type Severity Reaction Status Date / Time Sulfa (Sulfonamide Allergy Mild Hives Verified 09/30/21 06:42 Antibiotics) latex Allergy Rash Verified 09/30/21 06:42 ciprofloxacin AdvReac Mild Nausea/Vom/ Verified 09/30/21 06:42 Diarrhea Family History Daughter Anemia Anxiety Asthma Depression (emotion) Mother Anxiety Arthritis Depression (emotion) Diabetes Grandmother Diabetes Grandfather Diabetes Surgical History History of appendectomy History of section History of hysterectomy Tubal infertility in female Social History Smoking Status: Former smoker how long ago did patient quit smokin, 2ppd second hand exposure: Yes alcohol intake: never substance use type: does not use additional social history: DOES NOT USE ASPIRIN DOES NOT USE IBUPROFEN ROS ROS ED Constitutional Constitutional ED: Reports fatigue; Denies chills or fever(s) Eyes Eyes: Denies change in vision or diplopia ENT ENT ED: Denies rhinorrhea or sore throat Cardiovascular Cardiovascular: Reports as per HPI, chest pain, orthopnea and pedal edema; Denies palpitations Respiratory/Chest Respiratory/Chest: Reports cough, dyspnea, dyspnea on exertion, orthopnea and productive cough; Denies excessive phlegm production or hemoptysis Gastrointestinal Gastrointestinal: Reports as per HPI, constipation and diarrhea; Denies abdominal pain, nausea or vomiting Genitourinary Genitourinary ED: Denies dysuria or hematuria Musculoskeletal Musculoskeletal: Reports back pain; Denies neck pain Integumentary Denies abscess or rash Neurologic Neurologic: Denies headache(s), paresthesias or weakness Psychiatric Psychiatric: Denies anxiety or suicidal thoughts EXAM Physical Exam Const Vital Signs: 09/30/21 06:37 09/30/21 07:37 09/30/21 09:00 Temperature 97.9 F Temperature Source Temporal Pulse Rate 101 H 95 121 H Respiratory Rate 24 H 23 H 24 H Respiratory Pattern Blood Pressure 125/90 H 120/78 116/83 H Blood Pressure Mean 101 92 94 Pulse Ox 91 94 93 Oxygen Delivery Method Nasal Cannula Nasal Cannula Nasal Cannula Oxygen Flow Rate (L/min) 4 4 4 09/30/21 09:12 09/30/21 10:00 09/30/21 10:40 Temperature Temperature Source Pulse Rate 102 H 101 H 99 Respiratory Rate 24 H 26 H 21 H Respiratory Pattern Tachypnea Blood Pressure 125/60 H 113/69 Blood Pressure Mean 81 83 Pulse Ox 95 93 Oxygen Delivery Method Nasal Cannula Nasal Cannula Oxygen Flow Rate (L/min) 4 4 09/30/21 11:25 Temperature 97.9 F Temperature Source Temporal Pulse Rate 97 Respiratory Rate 24 H Respiratory Pattern Blood Pressure 137/73 H Blood Pressure Mean 94 Pulse Ox 93 Oxygen Delivery Method Nasal Cannula Oxygen Flow Rate (L/min) 4 Positive well nourished and well developed General Appearance ED: well developed and NAD Nutritional Appearance: morbidly obese HEENT Reports moist mucous membranes normocephalic and atraumatic Eyes PERRL and EOMs intact bilaterally Neck full ROM and supple Resp Resp Narrative: Faint breath sounds but symmetric. Slight tachypnea but no respiratory distress, speaking in 7-10 word sentences. Slight expiratory wheezes. Bibasilar faint rhonchi versus decreased breath sounds/atelectasis. Cardio regular rate, regular rhythm and no murmurs Cardio Narrative: Not able to determine presence or absence of JVD due to obesity GI non-tender GI Narrative: Distended/obese, nontender Auscultation: normoactive bowel sounds Palpation: soft Back/Spine no CVA tenderness General Back: other FROM Extremity normal to inspection General Extremety ED: Yes edema; Negative for pulses abnormal or tenderness General Extremity: edema bilateral lower extremity Details: severe (Does not appear to be pitting); Negative for pulses abnormal Neuro oriented x3, CN's II-XII intact bilaterally and no sensory deficits noted Sensorium / Orientation: awake and alert Motor Exam: strength 5/5 throughout Skin no rashes or lesions noted and no wounds MDM MDM MDM Narrative Medical decision making narrative: Initially given the patient's symptoms and history there was concern for acute decompensated congestive heart failure so while she was being worked up, she was given Lasix. I held off on nebulizer treatment since we were considering Covid in the differential and she was stable. Her Covid returned negative and the rest of the tests are basically consistent with COPD exacerbation with no pneumonia on the chest x-ray, and inconsistent with acute decompensated congestive heart failure given her BNP of only 32 and normal chest x-ray. Therefore at that point she was given nebulizer treatment in addition to a dose of Solu-Medrol after we discussed the risks and benefits of doing this in a diabetic patient. She did better after this and remained for the next couple hours in the emergency department breathing relatively well with no hypoxemia on her home oxygen of 4 L. Then, the patient indicated that she was on hospice care and had been for about the past year. She states this is due to her severe COPD. Then came a phone call from the patient's daughter who lives with her and helps to care for her in addition to the hospice nurses, the daughter is wondering why I have not admitted her to the hospital. I discussed the above medical evaluation with her after receiving the patient's permission. She states that she will not get up, she stays in bed 24/, and she was at [facility] several days ago, they prescribed her lactulose after trying to admit her and patient refusing. They have the prescription with them, the patient and her , and it appears that the lactulose prescription at they have received which she has not started yet, has 30 cc of lactulose and at and it is prescribed for a single dose. The patient states she is concerned that she has hepatic encephalopathy. I reevaluated the patient and discussed a lot of this with her and the . He states that she has actually been going back and forth to the toilet to urinate, occasionally she leaks into her adult diaper but she is mobile back and forth to the toilet which she confirms, and also that she is not grossly confused which she does not appear to be at this time. I spoke with the hospice nurse who knows her well. She states that the patient is noncompliant, she will not take her Lasix and nebulizer treatments at times, and she absolutely refuses to lay down and raise her legs because of pain. She states at times she has demanded that the nurses wipe her bottom because she refuses to get up. They also state that despite her edema, she eats nothing but progressive soups which have a ton of sodium in them. She states that the abdominal distention has been normal for her for 10 years plus, and she is unsure about the results of a CT scan the patient had maybe 2 or so months ago at [place] as well. We submitted for records from [place], but after several hours of waiting we received nothing. In that amount of time, he had given the patient lactulose, and sat and had a so long conversation with her and her , after I discussed with the daughter over the phone. It also seems that after talking with the hospice nurse, the patient presents here on early Saturday, and Saturday morning she is already set up to go to a [facility] for respite care where hospice plans to continue their care, and after 1 week if she needs transferred to nursing care floor for further treatment, they will be able to transition her. I think this is appropriate. Furthermore, the patient states that she is indeed taking her Lasix and she says on her own that the only day she can remember that she did not take it was because she was traveling to and from [place] and she was on the road a lot, which certainly is reasonable explanation. She is alert and oriented x3. She clinically does not have hepatic encephalopathy at this time however it is possible that some of her memory issues are related to her ammonia, which I did obtain and is a little elevated in the 30s, and I agree that lactulose would probably be of benefit to her which I discussed with her. However she will need more than 1 dose. I will write her a new prescription. The hospice nurse mentioned that the daughter had a prescription for it that she has not filled yet, it is unknown to me if that is what she still has or if the patient is holding a filled prescription of what that was. The patient prefers to go home. I advised her that she simply needs to make it until Saturday in which case she would then be transferred to respite care and she is in agreement and so is the . I do not think medically she would necessarily benefit from being admitted to the hospital at this time given the work-up. The steroids I will prescribe her are only for additional days of prednisone to minimize any fluid retention and to maximize the benefit she will have for her COPD. I sought to get CAT scan results to see if she had significant ascites, but both the patient and the nurse state that her abdominal distention are not worse in the past month or 2. Therefore I feel she does not need an emergent CT today, nor does she need an urgent or emergent paracentesis. Patient is amenable to an extra dose of IV Lasix prior to leaving. She was advised to elevate her legs and leg back a little as much as possible to help with her edema and she was amenable to that as well and the is too. Lab Data Attestation: I reviewed the patient's lab results. Labs: Laboratory Results - last 24 hr 09/30/21 09/30/21 09/30/21 06:55 06:55 06:55 WBC 9.7 RBC 4.48 Hgb 10.8 L Hct 36.7 L MCV 81.9 MCH 24.1 L MCHC 29.4 L RDW Std Deviation 55.8 H RDW Coeff of [place] 18.6 H Plt Count 75 L MPV 11.7 Immature Gran % (Auto) 2.300 H Neut % (Auto) 67.4 Lymph % (Auto) 16.0 L Taliaferro % (Auto) 13.2 H Eos % (Auto) 0.5 Baso % (Auto) 0.6 Absolute Neuts (auto) 6.5 Absolute Lymphs (auto) 1.54 Nucleated RBC % 0 Sodium 140 Potassium 3.1 L Chloride 95 L Carbon Dioxide 40.0 H Anion Gap 5 BUN 13 Creatinine 0.71 Estim Creat Clear Calc 39.21 Est GFR (MDRD) Af Amer 105 Est GFR (MDRD) Non-Af 87 BUN/Creatinine Ratio 18.3 Glucose 123 H Calcium 10.2 H Ammonia Troponin I High Sens 54 B-Natriuretic Peptide 32.1 09/30/21 11:10 WBC RBC Hgb Hct MCV MCH MCHC RDW Std Deviation RDW Coeff of [place] Plt Count MPV Immature Gran % (Auto) Neut % (Auto) Lymph % (Auto) Taliaferro % (Auto) Eos % (Auto) Baso % (Auto) Absolute Neuts (auto) Absolute Lymphs (auto) Nucleated RBC % Sodium Potassium Chloride Carbon Dioxide Anion Gap BUN Creatinine Estim Creat Clear Calc Est GFR (MDRD) Af Amer Est GFR (MDRD) Non-Af BUN/Creatinine Ratio Glucose Calcium Ammonia 39.0 H Troponin I High Sens B-Natriuretic Peptide Radiography Diagnostic Testing: Clinical Impression(s) from Imaging Studies Chest X-Ray 09/30/21 08:15 IMPRESSION: No active disease. Electronically Signed: Umair Mo MD at 8:33 EST Tel , Service support , Rhythm Strip Rhythm Strip: Sinus Rhythm Rate: 97 Ectopy: PAC(s) EKG Initial EKG: Attestation: I personally reviewed and interpreted this EKG as follows: Interpretation: Sinus Rhythm, No Acute Injury Pattern, LAFB and Inverted T-Waves (laterally 1, aVL) Comments: LVH (aVL 11mm) Prior EKG tracings: available for review Prior: Unchanged Discharge Plan Triage Chief Complaint: Shortness of Breath ED Provider: Jimi Murguia Dx/Rx/DC Orders Clinical Impression: Bilateral edema of lower extremity, Chronic respiratory failure with hypoxia, Hyperammonemia, Chronic obstructive pulmonary disease with acute exacerbation Instructions: ED Peripheral Edema, Bilateral Prescriptions: New lactulose 10 gram/15 mL solution 10 g PO TID 14 Days Qty: 630 RF: 0 prednisone 20 MG tablet 40 mg PO DAILY Qty: 8 RF: 0 No Action furosemide [Lasix] 20 mg tablet 40 mg PO DAILY PRN (Reason: Swelling) RF: 0 omeprazole 40 mg capsule,delayed release(DR/EC) 40 mg PO DAILY RF: 0 pravastatin 40 mg tablet 40 mg PO DAILY RF: 0 montelukast [Singulair] 10 mg tablet 10 mg PO QPM RF: 0 trazodone 150 mg tablet 150 mg PO DAILY RF: 0 lisinopril-hydrochlorothiazide 20-25 mg tablet 1 tab PO DAILY RF: 0 potassium chloride 8 mEq capsule, extended release 8 meq PO DAILY RF: 0 alprazolam 0.25 mg tablet 0.25 mg PO DAILY PRN (Reason: Anxiety) RF: 0 ipratropium-albuterol 0.5 mg-3 mg(2.5 mg base)/3 mL solution for nebulization 3 ml INHALATION Q6H Qty: 180 RF: 3 hydroxyzine HCl 25 MG tablet 25 mg PO TID PRN RF: 0 metoprolol succinate 50 mg tablet extended release 24 hr 50 mg PO DAILY RF: 0 buspirone 15 mg Tablet 15 mg PO TID RF: 0 venlafaxine 75 mg Tablet Extended Release 24hr 75 mg PO DAILY RF: 0 Humulin 70/30 U-100 Insulin 100 unit/mL (70-30) suspension 110 unit SUBCUT BREAKFAST RF: 0 Humulin 70/30 U-100 Insulin 100 unit/mL (70-30) suspension 95 unit SUBCUT QHS RF: 0 cefadroxil 500 mg capsule 500 mg PO BID RF: 0 simethicone 125 mg tablet,chewable 125 mg PO TID PRN (Reason: abdominal distention) Qty: 30 RF: 0 baclofen 5 mg tablet 5 mg PO BID PRN (Reason: belching) Qty: 20 RF: 0 pantoprazole 40 mg Tablet,Delayed Release (Dr/Ec) 40 mg PO DAILY RF: 0 Trelegy Ellipta 100-62.5-25 mcg blister with device 1 inh INHALATION QDAY Qty: 60 RF: 3 Primary Care Provider: Carlos Snyder NP Referrals: Carlos Snyder [facility], [facility] [Primary Care Provider] - Activity Restrictions/Additional Instructions: Continue hospice care, and planned respite [facility] rehab care on Saturday. If you do not have an additional prescription for lactulose, fill and take the new one I provided you as prescribed, which is 3 times daily in addition to your other medications (no other lactulose dosing). Elevating her legs and taking the Lasix should help with getting some of the fluid off but will take time. You may also wrap your legs with stockings or prescription compression wraps which can help with this as well. Continuing to move and get around is advised as much as you are able. Disposition Disposition: Home, Self Care
[2021-09-30 07:36] LABS: Absolute Lymphocyte Count 1.54 X10^3/uL (0.83-4.51); Absolute Neutrophil Count 6.5 X10^3/uL (2.0-7.7); Basophil# 0.06 X10^3/uL; Basophil% 0.6 % (0-1); Eosinophil# 0.05 X10^3/uL; Eosinophils% 0.5 % (0-5); Hematocrit 36.7 % (37-47); Hemoglobin 10.8 g/dL (12.0-15.0); Lymphocyte # 1.54 X10^3/ul (0.83-4.51); Mean Corp Hgb Conc 29.4 g/dL (32-36); Mean Corpuscular Hgb 24.1 pg (27.0-32.0); Mean Corpuscular Volume 81.9 fL (81-99); Mean Platelet Vol. 11.7 fl (6.2-12.0); Monocyte# 1.27 X10^3/uL; Monocyte% 13.2 % (0-10); NRBC Flagged by Analyzer 0 % (0-5); Neutrophil # 6.51 X10^3/uL (2.7-7.7); Neutrophil % 67.4 % (47-70); POSITIVE COUNT YES; Platelet Count 75 K/mm3 (150-450); RBC Distribution Width CV 18.6 % (11.6-14.6); RBC Distribution Width SD 55.8 fl (35.1-43.9); Red Blood Count 4.48 M/mm3 (4.2-5.4); White Blood Count 9.7 K/mm3 (4.4-11.0)
[2021-09-30 07:45] LABS: Anion Gap 5 (5-15); BUN 13 mg/dL (7-18); BUN/Creat Ratio 18.3 RATIO (10-20); Calcium,Total 10.2 mg/dL (8.5-10.1); Chloride 95 mmol/L (98-107); Creatinine, Serum 0.71 mg/dL (0.55-1.02); EST Glomerular Filtration Rate 87 mL/min (>60); Est Glom Filt Rate - Afr Amer 105 mL/min (>60); Estimated Creatinine Clearance 39.21 ml/min; Glucose 123 mg/dL (74-106); Potassium 3.1 mmol/L (3.5-5.1); Sodium Level 140 mmol/L (136-145); Troponin-I HS 54 pg/mL (3.0-54.0)
[2021-09-30] MEDS: Furosemide 20 MG/2 ML VIAL IV ×2 (07:46→13:53)
[2021-09-30 08:06] LABS: BNP,B-Type NATRIURETIC PEPTIDE 32.1 pg/mL (0-100)
--- NOTE | 2021-09-30 08:15 | RAD_ITS ---
STUDY: X-RAY CHEST REASON FOR EXAM: Female, 65 years old. sob TECHNIQUE: Single AP portable view of the chest. COMPARISON: 06/26/2019 FINDINGS: The lungs are clear and expanded. There is no demonstrated pleural abnormality. There is moderate cardiac enlargement. Normal mediastinum and alan. Normal visualized pulmonary arteries. Normal visualized aortic arch and descending thoracic aorta. Normal visualized thoracic spine. Normal visualized ribs, clavicles, and shoulders. There is no demonstrated abnormality of the visualized soft tissue structures of the upper abdomen. RAD/Chest 1 View (Portable) IMPRESSION: No active disease. Electronically Signed: Umair Mo MD at 8:33 EST Tel , Service support ,
[2021-09-30] MEDS: Ipratropium/Albuterol Sulfate 3 ML AMPUL.NEB INHALATION (09:12)
[2021-09-30] MEDS: Albuterol 2.5 MG/3 ML VIAL.NEB. INHALATION (09:12)
[2021-09-30] MEDS: MethylPREDNISolone 125 MG/2 ML Vial IV (09:22)
[2021-09-30] MEDS: Lactulose 20 GM/30 ML UDC PO (12:25)
== END 2021-09-30 14:13 | disposition home or self-care (01) ==
PROVIDERS: Emergency Provider Emergency Medicine; PCP Nurse Practitioner Family
DX: J44.1 Chronic obstructive pulmonary disease with (acute) exacerbation (principal); J96.11 Chronic respiratory failure with hypoxia; E72.20 Disorder of urea cycle metabolism, unspecified; R60.0 Localized edema; I49.1 Atrial premature depolarization; E66.01 Morbid (severe) obesity due to excess calories; Z68.43 Body mass index [BMI] 50.0-59.9, adult; E11.9 Type 2 diabetes mellitus without complications; E78.2 Mixed hyperlipidemia; F32.A Depression, unspecified; F41.9 Anxiety disorder, unspecified; G47.30 Sleep apnea, unspecified; G89.29 Other chronic pain; I11.0 Hypertensive heart disease with heart failure; I50.9 Heart failure, unspecified; K58.9 Irritable bowel syndrome, unspecified; K21.9 Gastro-esophageal reflux disease without esophagitis; K76.0 Fatty (change of) liver, not elsewhere classified; K74.60 Unspecified cirrhosis of liver; M06.9 Rheumatoid arthritis, unspecified; M81.0 Age-related osteoporosis without current pathological fracture; Z85.828 Personal history of other malignant neoplasm of skin; Z87.440 Personal history of urinary (tract) infections; Z91.14 Patient's other noncompliance with medication regimen; Z79.4 Long term (current) use of insulin; Z79.899 Other long term (current) drug therapy; Z87.891 Personal history of nicotine dependence
CPT/HCPCS: 36415; 71045; 80048; 82140; 83880; 84484; 85025; 87426; 93005; 94640; 96374; 96375; 96376; 99285; J1940